=== PATIENT | male | born 1940 | race Caucasian/White ===

== ENCOUNTER → 2017-07-04 09:26 | Outpatient (CLI) | payer MEDICARE, OTHER, SELFPAY ==
[2017-07-04 11:14] LABS: AST(SGOT) 31 U/L (15-37); Alanine Aminotransfer ALT/SGPT 43 U/L (16-61); Albumin, Serum 3.6 g/dL (3.2-5.0); Alkaline Phosphatase 77 U/L (45-117); Bilirubin, Direct 0.09 mg/dL (0.00-0.30); Cholesterol 157 mg/dL (200); Globulin 4.3 g/dL (2.2-4.2); High Density Lipoprotein 39 mg/dL; Protein, Total 7.9 g/dL (6.4-8.2); Thyroid Stim Hormone (TSH) 4.17 uIU/mL (0.358-3.74); Triglycerides 86 mg/dL; Very Low Density Lipoprotein 17 mg/dL (5-40)
== END ==
PROVIDERS: Family Provider Family Medicine Geriatric Medicine; PCP Family Medicine Geriatric Medicine; Visit Provider Physician Assistant Medical
DX: E78.5 Hyperlipidemia, unspecified (principal); E03.9 Hypothyroidism, unspecified; Z79.899 Other long term (current) drug therapy
CPT/HCPCS: 36415; 80061; 80076; 84443

== ENCOUNTER → 2017-09-06 16:31 | Outpatient (CLI) | payer MEDICARE, OTHER, SELFPAY ==
[2017-09-06 17:31] LABS: Absolute Lymphocyte Count 2.79 X10^3/ul (0.83-4.51); Absolute Neutrophil Count 6.3 X10^3/uL (2.0-7.7); Basophil# 0.02 X10^3/uL; Basophil% 0.2 % (0-1); Eosinophil# 0.18 X10^3/uL; Eosinophils% 1.8 % (0-5); Hematocrit 48.6 % (40-54); Hemoglobin 16.1 g/dl (13.0-16.5); Lymphocyte # 2.79 X10^3/ul (4.0); Lymphocyte % 27.2 % (19-41); Mean Corp Hgb Conc 33.1 g/gl (32-36); Mean Corpuscular Hgb 32.1 pg (27.0-32.0); Mean Corpuscular Volume 96.8 fL (80-94); Mean Platelet Vol. 9.6 fl (6.2-12.0); Monocyte# 0.91 X10^3/uL; Monocyte% 8.9 % (0-10); Neutrophil # 6.34 X10^3/uL (2.7-7.7); Neutrophil % 61.8 % (47-70); POSITIVE COUNT NO; POSITIVE DIFFERENTIAL NO; POSITIVE MORPHOLOGY NO; Platelet Count 199 K/mm3 (150-450); RBC Distribution Width CV 13.9 % (11.6-14.6); RBC Distribution Width SD 48.5 fl (35.1-43.9); Red Blood Count 5.02 M/mm3 (4.6-6.2); White Blood Count 10.3 K/mm3 (4.4-11.0)
[2017-09-06 17:57] LABS: Vitamin D,25 Hydroxy 17.3 ng/mL (29.95-100.01)
[2017-09-06 17:58] LABS: ALB/GLOB Ratio 0.8 RATIO (0.9-2.4); AST(SGOT) 39 U/L (15-37); Alanine Aminotransfer ALT/SGPT 61 U/L (16-61); Albumin, Serum 3.7 g/dL (3.2-5.0); Alkaline Phosphatase 78 U/L (45-117); Anion Gap 9 (5-15); BUN 14 mg/dL (7-18); BUN/Creat Ratio 12.2 RATIO (10-20); Calcium,Total 8.7 mg/dL (8.5-10.1); Chloride 105 mmol/L (98-107); Creatinine, Serum 1.15 mg/dL (0.70-1.30); EST Glomerular Filtration Rate 66 mL/min (>60); Est Glom Filt Rate - Afr Amer 79 mL/min (>60); Globulin 4.5 g/dL (2.2-4.2); Glucose 83 mg/dL (74-106); Potassium 4.2 mmol/L (3.5-5.1); Protein, Total 8.2 g/dL (6.4-8.2); Sodium Level 138 mmol/L (136-145); Thyroid Stim Hormone (TSH) 3.91 uIU/mL (0.358-3.74)
== END ==
PROVIDERS: Family Provider Family Medicine Geriatric Medicine; PCP Family Medicine Geriatric Medicine; Visit Provider Family Medicine Geriatric Medicine
DX: E55.9 Vitamin D deficiency, unspecified (principal); R53.83 Other fatigue
CPT/HCPCS: 36415; 80053; 82306; 84443; 85025

== ENCOUNTER → 2018-03-07 12:25 | Outpatient (CLI) | payer MEDICARE, OTHER, SELFPAY ==
[2018-03-07 13:16] LABS: Absolute Neutrophil Count 4.9 X10^3/uL (2.0-7.7); Basophil# 0.02 X10^3/uL; Basophil% 0.2 % (0-1); Eosinophil# 0.11 X10^3/uL; Eosinophils% 1.3 % (0-5); Hematocrit 47.1 % (40-54); Lymphocyte % 33.3 % (19-41); Mean Corp Hgb Conc 31.8 g/gl (32-36); Mean Corpuscular Hgb 31.4 pg (27.0-32.0); Mean Corpuscular Volume 98.7 fL (80-94); Mean Platelet Vol. 9.1 fl (6.2-12.0); Monocyte# 0.73 X10^3/uL; Monocyte% 8.4 % (0-10); Neutrophil # 4.91 X10^3/uL (2.7-7.7); Neutrophil % 56.5 % (47-70); Platelet Count 294 K/mm3 (150-450); RBC Distribution Width CV 13.5 % (11.6-14.6); RBC Distribution Width SD 48.4 fl (35.1-43.9); Red Blood Count 4.77 M/mm3 (4.6-6.2); White Blood Count 8.7 K/mm3 (4.4-11.0)
[2018-03-07 13:21] LABS: POSITIVE COUNT NO; POSITIVE DIFFERENTIAL NO; POSITIVE MORPHOLOGY NO
[2018-03-07 14:00] LABS: Vitamin D,25 Hydroxy 35.2 ng/mL (29.95-100.01)
[2018-03-07 14:05] LABS: ALB/GLOB Ratio 0.8 RATIO (0.9-2.4); AST(SGOT) 39 U/L (15-37); Alanine Aminotransfer ALT/SGPT 61 U/L (16-61); Albumin, Serum 3.5 g/dL (3.2-5.0); Alkaline Phosphatase 73 U/L (45-117); Anion Gap 6 (5-15); BUN 18 mg/dL (7-18); BUN/Creat Ratio 15.4 RATIO (10-20); Calcium,Total 8.9 mg/dL (8.5-10.1); Chloride 108 mmol/L (98-107); Creatinine, Serum 1.17 mg/dL (0.70-1.30); EST Glomerular Filtration Rate 64 mL/min (>60); Est Glom Filt Rate - Afr Amer 78 mL/min (>60); Globulin 4.6 g/dL (2.2-4.2); Glucose 74 mg/dL (74-106); Potassium 4.5 mmol/L (3.5-5.1); Protein, Total 8.1 g/dL (6.4-8.2); Sodium Level 139 mmol/L (136-145); Thyroid Stim Hormone (TSH) 3.02 uIU/mL (0.358-3.74)
== END ==
PROVIDERS: Family Provider Family Medicine Geriatric Medicine; PCP Family Medicine Geriatric Medicine; Visit Provider Family Medicine Geriatric Medicine
DX: E55.9 Vitamin D deficiency, unspecified (principal); R53.83 Other fatigue
CPT/HCPCS: 36415; 80053; 82306; 84443; 85025

== ENCOUNTER → 2018-07-16 09:09 | Outpatient (CLI) | payer MEDICARE, OTHER, SELFPAY ==
[2018-07-16 10:31] LABS: AST(SGOT) 45 U/L (15-37); Alanine Aminotransfer ALT/SGPT 59 U/L (16-61); Albumin, Serum 3.5 g/dL (3.2-5.0); Alkaline Phosphatase 68 U/L (45-117); Bilirubin, Direct 0.06 mg/dL (0.00-0.30); Cholesterol 170 mg/dL (200); Globulin 4.4 g/dL (2.2-4.2); High Density Lipoprotein 38 mg/dL; Protein, Total 7.9 g/dL (6.4-8.2); Triglycerides 108 mg/dL; Very Low Density Lipoprotein 22 mg/dL (5-40)
== END ==
PROVIDERS: Family Provider Family Medicine Geriatric Medicine; PCP Family Medicine Geriatric Medicine; Referring Provider Physician Assistant Medical; Visit Provider Physician Assistant Medical
DX: I25.10 Atherosclerotic heart disease of native coronary artery without angina pectoris (principal); E78.5 Hyperlipidemia, unspecified
CPT/HCPCS: 36415; 80061; 80076

== ENCOUNTER → 2018-08-15 16:34 | Outpatient (CLI) | payer MEDICARE, OTHER, SELFPAY ==
[2018-07-18 14:03] VITALS: BMI 33.6
== END ==
PROVIDERS: Family Provider Family Medicine Geriatric Medicine; PCP Family Medicine Geriatric Medicine; Visit Provider Family Medicine Geriatric Medicine
DX: R19.7 Diarrhea, unspecified (principal); B96.89 Other specified bacterial agents as the cause of diseases classified elsewhere
CPT/HCPCS: 82274; 83630; 87177; 87209; 87493; 87506

== ENCOUNTER → 2018-09-11 09:03 | Outpatient (CLI) | payer MEDICARE, OTHER, SELFPAY ==
[2018-07-18 14:03] VITALS: BMI 33.6
[2018-09-11 12:48] LABS: Absolute Lymphocyte Count 1.86 X10^3/uL (0.83-4.51); Absolute Neutrophil Count 4.8 X10^3/uL (2.0-7.7); Basophil# 0.02 X10^3/uL; Basophil% 0.3 % (0-1); Eosinophil# 0.28 X10^3/uL; Eosinophils% 3.7 % (0-5); Hematocrit 45.6 % (40-54); Hemoglobin 14.8 g/dL (13.0-16.5); Lymphocyte # 1.86 X10^3/ul (4.0); Lymphocyte % 24.4 % (19-41); Mean Corp Hgb Conc 32.5 g/dL (32-36); Mean Corpuscular Hgb 31.8 pg (27.0-32.0); Mean Corpuscular Volume 98.1 fL (80-94); Monocyte# 0.66 X10^3/uL; Monocyte% 8.7 % (0-10); NRBC Flagged by Analyzer 0 % (0-5); Neutrophil # 4.76 X10^3/uL (2.7-7.7); Neutrophil % 62.4 % (47-70); Platelet Count 222 K/mm3 (150-450); RBC Distribution Width CV 13.9 % (11.6-14.6); RBC Distribution Width SD 50.3 fl (35.1-43.9); Red Blood Count 4.65 M/mm3 (4.6-6.2); White Blood Count 7.6 K/mm3 (4.4-11.0)
[2018-09-11 13:23] LABS: ALB/GLOB Ratio 0.8 RATIO (0.9-2.4); AST(SGOT) 30 U/L (15-37); Alanine Aminotransfer ALT/SGPT 50 U/L (16-61); Albumin, Serum 3.4 g/dL (3.2-5.0); Alkaline Phosphatase 76 U/L (45-117); Anion Gap 8 (5-15); BUN 14 mg/dL (7-18); BUN/Creat Ratio 12.3 RATIO (10-20); Calcium,Total 8.9 mg/dL (8.5-10.1); Chloride 106 mmol/L (98-107); Creatinine, Serum 1.14 mg/dL (0.70-1.30); EST Glomerular Filtration Rate 66 mL/min (>60); Est Glom Filt Rate - Afr Amer 80 mL/min (>60); Globulin 4.5 g/dL (2.2-4.2); Glucose 90 mg/dL (74-106); Potassium 4.1 mmol/L (3.5-5.1); Protein, Total 7.9 g/dL (6.4-8.2); Sodium Level 141 mmol/L (136-145); Thyroid Stim Hormone (TSH) 3.03 uIU/mL (0.358-3.74)
== END ==
PROVIDERS: Family Provider Family Medicine Geriatric Medicine; PCP Family Medicine Geriatric Medicine; Visit Provider Family Medicine Geriatric Medicine
DX: I10 Essential (primary) hypertension (principal); E55.9 Vitamin D deficiency, unspecified
CPT/HCPCS: 36415; 80053; 82306; 84443; 85025

== ENCOUNTER → 2019-03-07 12:00 | Outpatient (CLI) | payer MEDICARE, OTHER, SELFPAY ==
[2018-07-18 14:03] VITALS: BMI 33.6
[2019-03-07 12:52] LABS: AST(SGOT) 37 U/L (15-37); Alanine Aminotransfer ALT/SGPT 52 U/L (16-61); Albumin, Serum 3.6 g/dL (3.2-5.0); Alkaline Phosphatase 67 U/L (45-117); Cholesterol 177 mg/dL (200); Globulin 4.3 g/dL (2.2-4.2); High Density Lipoprotein 38 mg/dL; Protein, Total 7.9 g/dL (6.4-8.2); Triglycerides 115 mg/dL; Very Low Density Lipoprotein 23 mg/dL (5-40)
== END ==
PROVIDERS: Family Provider Family Medicine Geriatric Medicine; PCP Family Medicine Geriatric Medicine; Referring Provider Internal Medicine Cardiovascular Disease; Visit Provider Internal Medicine Cardiovascular Disease
DX: I25.10 Atherosclerotic heart disease of native coronary artery without angina pectoris (principal); E78.00 Pure hypercholesterolemia, unspecified
CPT/HCPCS: 36415; 80061; 80076

== ENCOUNTER → 2019-03-12 11:06 | Outpatient (CLI) | payer MEDICARE, OTHER, SELFPAY ==
[2018-07-18 14:03] VITALS: BMI 33.6
[2019-03-12 12:51] LABS: Absolute Lymphocyte Count 2.31 X10^3/uL (0.83-4.51); Absolute Neutrophil Count 4.1 X10^3/uL (2.0-7.7); Basophil# 0.02 X10^3/uL; Basophil% 0.3 % (0-1); Eosinophil# 0.27 X10^3/uL; Eosinophils% 3.7 % (0-5); Hematocrit 47.1 % (40-54); Hemoglobin 14.8 g/dL (13.0-16.5); Lymphocyte # 2.31 X10^3/ul (4.0); Mean Corp Hgb Conc 31.4 g/dL (32-36); Mean Corpuscular Volume 98.5 fL (80-94); Mean Platelet Vol. 9.7 fl (6.2-12.0); Monocyte# 0.56 X10^3/uL; Monocyte% 7.7 % (0-10); NRBC Flagged by Analyzer 0 % (0-5); Neutrophil # 4.05 X10^3/uL (2.7-7.7); Platelet Count 211 K/mm3 (150-450); RBC Distribution Width CV 13.8 % (11.6-14.6); RBC Distribution Width SD 50.2 fl (35.1-43.9); Red Blood Count 4.78 M/mm3 (4.6-6.2); White Blood Count 7.2 K/mm3 (4.4-11.0)
[2019-03-12 13:00] LABS: ALB/GLOB Ratio 0.9 RATIO (0.9-2.4); AST(SGOT) 31 U/L (15-37); Alanine Aminotransfer ALT/SGPT 50 U/L (16-61); Albumin, Serum 3.6 g/dL (3.2-5.0); Alkaline Phosphatase 71 U/L (45-117); Anion Gap 3 (5-15); BUN 17 mg/dL (7-18); Calcium,Total 8.9 mg/dL (8.5-10.1); Chloride 106 mmol/L (98-107); Creatinine, Serum 1.31 mg/dL (0.70-1.30); EST Glomerular Filtration Rate 56 mL/min (>60); Est Glom Filt Rate - Afr Amer 68 mL/min (>60); Globulin 4.2 g/dL (2.2-4.2); Glucose 146 mg/dL (74-106); Potassium 4.3 mmol/L (3.5-5.1); Protein, Total 7.8 g/dL (6.4-8.2); Sodium Level 139 mmol/L (136-145); Thyroid Stim Hormone (TSH) 3.73 uIU/mL (0.358-3.74)
== END ==
PROVIDERS: Family Provider Family Medicine Geriatric Medicine; PCP Family Medicine Geriatric Medicine; Visit Provider Family Medicine Geriatric Medicine
DX: E55.9 Vitamin D deficiency, unspecified (principal); I10 Essential (primary) hypertension
CPT/HCPCS: 36415; 80053; 82306; 84443; 85025

== ENCOUNTER → 2019-08-26 14:45 | Outpatient (CLI) | payer MEDICARE, OTHER, SELFPAY ==
[2019-07-17 14:43] VITALS: BMI 32.5
--- NOTE | 2019-08-26 14:52 | RAD_ITS ---
STUDY: X-RAY - PELVIS AND LEFT HIP REASON FOR EXAM: Male, 78 years old. BACK PAIN, HX OF BACK SURGERY TECHNIQUE: 3 views of the pelvis and hip. COMPARISON: None. FINDINGS: There is a non-specific bowel gas pattern. Normal visualized soft tissue structures. Normal bilateral iliac wings, sacroiliac joints and visualized sacrum. Normal bilateral superior and inferior pubic rami. Normal pubic symphysis. Normal bilateral ischial tuberosities. Unremarkable right hip prosthesis. The left hip joint space is mildly narrowed. No acute fracture is seen. Moderate degenerative changes are partially visualized in the lower lumbar spine. RAD/HIP, UNI W/ Pelvis 2-3 Views IMPRESSION: No acute process of the pelvis/hip Electronically Signed: Joe Denson MD at 17:06 EDT , Service support ,
--- NOTE | 2019-08-26 14:58 | RAD_ITS ---
STUDY: X-RAY - LUMBAR SPINE REASON FOR EXAM: Male, 78 years old. BACK PAIN, HX OF BACK SURGERY TECHNIQUE: 3 view(s) of the lumbar spine were obtained. COMPARISON: 2014 FINDINGS: Normal lumbar lordosis. There is a mild dextroscoliosis of the lumbar spine. There is a normal alignment of the vertebrae in the lateral view. There is diffuse demineralization with multi-level endplate spondylosis. There is multi-level degenerative disc disease with multi-level disc space narrowing. There is no demonstrated fracture. There is atherosclerotic calcification of the abdominal aorta without a demonstrated aneurysm. RAD/Lumbar Spine 2 or 3 Views IMPRESSION: Degenerative changes of the spine, as detailed above. Electronically Signed: Cas Molina MD at 17:36 EDT , Service support ,
== END ==
PROVIDERS: PCP Family Medicine Geriatric Medicine; Referring Provider Family Medicine Geriatric Medicine; Visit Provider Family Medicine Geriatric Medicine
DX: M54.5 Low back pain (principal); M25.552 Pain in left hip
CPT/HCPCS: 72100; 73502

== ENCOUNTER → 2019-09-17 11:13 | Outpatient (CLI) | payer MEDICARE, OTHER, SELFPAY ==
[2019-07-17 14:43] VITALS: BMI 32.5
[2019-09-17 12:42] LABS: Absolute Lymphocyte Count 2.32 X10^3/uL (0.83-4.51); Absolute Neutrophil Count 4.6 X10^3/uL (2.0-7.7); Basophil# 0.02 X10^3/uL; Basophil% 0.3 % (0-1); Eosinophil# 0.13 X10^3/uL; Eosinophils% 1.7 % (0-5); Hematocrit 46.4 % (40-54); Hemoglobin 15.1 g/dL (13.0-16.5); Lymphocyte # 2.32 X10^3/ul (4.0); Lymphocyte % 29.6 % (19-41); Mean Corp Hgb Conc 32.5 g/dL (32-36); Mean Corpuscular Hgb 31.9 pg (27.0-32.0); Mean Corpuscular Volume 97.9 fL (80-94); Mean Platelet Vol. 9.8 fl (6.2-12.0); Monocyte# 0.74 X10^3/uL; Monocyte% 9.4 % (0-10); NRBC Flagged by Analyzer 0 % (0-5); Neutrophil # 4.61 X10^3/uL (2.7-7.7); Neutrophil % 58.7 % (47-70); Platelet Count 230 K/mm3 (150-450); RBC Distribution Width CV 13.9 % (11.6-14.6); RBC Distribution Width SD 50.4 fl (35.1-43.9); Red Blood Count 4.74 M/mm3 (4.6-6.2); White Blood Count 7.8 K/mm3 (4.4-11.0)
[2019-09-17 13:02] LABS: ALB/GLOB Ratio 0.9 RATIO (0.9-2.4); AST(SGOT) 27 U/L (15-37); Alanine Aminotransfer ALT/SGPT 39 U/L (16-61); Albumin, Serum 3.7 g/dL (3.2-5.0); Alkaline Phosphatase 77 U/L (45-117); Anion Gap 3 (5-15); BUN 16 mg/dL (7-18); BUN/Creat Ratio 12.4 RATIO (10-20); Calcium,Total 8.8 mg/dL (8.5-10.1); Chloride 103 mmol/L (98-107); Creatinine, Serum 1.29 mg/dL (0.70-1.30); EST Glomerular Filtration Rate 57 mL/min (>60); Est Glom Filt Rate - Afr Amer 69 mL/min (>60); Globulin 4.2 g/dL (2.2-4.2); Glucose 76 mg/dL (74-106); Protein, Total 7.9 g/dL (6.4-8.2); Sodium Level 137 mmol/L (136-145); Thyroid Stim Hormone (TSH) 3.61 uIU/mL (0.358-3.74)
[2019-09-18 13:42] LABS: Vitamin D,25 Hydroxy 27.4 ng/mL
== END ==
PROVIDERS: PCP Family Medicine Geriatric Medicine; Visit Provider Family Medicine Geriatric Medicine
DX: E55.9 Vitamin D deficiency, unspecified (principal); I10 Essential (primary) hypertension
CPT/HCPCS: 36415; 80053; 82306; 84443; 85025

== ENCOUNTER → 2020-03-10 13:44 | Outpatient (CLI) | payer MEDICARE, OTHER, SELFPAY ==
[2019-10-03 13:46] VITALS: BMI 25.4
--- NOTE | 2020-03-10 14:02 | VDUE_ITS ---
Reason For Study: Edema Left Proximal Left jugular vein is spontaneous, widely patent, phasic, with no intraluminal echogenicity noted. Left subclavian vein is spontaneous, widely patent, phasic, with no intraluminal echogenicity noted. Left Arm Left axillary vein is spontaneous, patent, phasic, competent, compressible and demonstrates augmentation. Left brachial vein is compressible. Left cephalic vein is compressible. Left basilic vein is compressible. Left Lower Arm Left radial vein is compressible. Left ulnar vein is compressible. Patient Safety Prelim to Elias. Interpretation Summary Deep veins of the left upper extremity are patent and compressible segmentally. There is no evidence of deep vein thrombosis. The superficial veins of the left upper extremity, the basilic and cephalic veins, are patent and compressible. There is no evidence of left upper extremity superficial thrombophlebitis involving the veins imaged. Ordering Physician: Geoff Griffin Referring Physician: Geoff Griffin Chi Performed By: Марина Pennington RVT ?
[2020-03-10 14:39] LABS: Erythrocyte Sedimentation Rate 9 mm/hr (0-20)
[2020-03-10 14:41] LABS: Absolute Neutrophil Count 7.6 X10^3/uL (2.0-7.7); Basophil# 0.03 X10^3/uL; Basophil% 0.3 % (0-1); Eosinophil# 0.09 X10^3/uL; Eosinophils% 0.8 % (0-5); Hemoglobin 15.4 g/dL (13.0-16.5); Lymphocyte % 19.1 % (19-41); Mean Corp Hgb Conc 32.8 g/dL (32-36); Mean Corpuscular Volume 97.5 fL (80-94); Mean Platelet Vol. 9.6 fl (6.2-12.0); Monocyte# 1.16 X10^3/uL; Monocyte% 10.6 % (0-10); NRBC Flagged by Analyzer 0 % (0-5); Neutrophil # 7.57 X10^3/uL (2.7-7.7); Neutrophil % 68.8 % (47-70); Platelet Count 260 K/mm3 (150-450); RBC Distribution Width CV 13.3 % (11.6-14.6); RBC Distribution Width SD 47.8 fl (35.1-43.9); Red Blood Count 4.82 M/mm3 (4.6-6.2)
--- NOTE | 2020-03-10 14:43 | RAD_ITS ---
STUDY: X-RAY - LEFT HAND REASON FOR EXAM: Male, 79 years old. Painful and very red and swollen, no injury TECHNIQUE: 3 view(s) of the hand. COMPARISON: None. FINDINGS: Normal radiocarpal articulation. Normal distal radioulnar joint. Calcification of the triangle fibrocartilage. Normal visualized carpal bones. Normal carpal articulations There is degenerative arthrosis of the carpometacarpal (CMC) articulation of the thumb. Normal second through fifth carpometacarpal joints. Normal metacarpi. Normal metacarpophalangeal joint of the thumb. Normal interphalangeal joint of the thumb. Normal proximal and distal phalanges of the thumb. Normal metacarpophalangeal joints of the second through fifth fingers. Normal proximal and distal interphalangeal joints of the second through fifth fingers. Normal phalanges of the second through fifth fingers. Diffuse soft tissue swelling. RAD/Hand Min 3 Views IMPRESSION: Diffuse soft tissue swelling. Electronically Signed: Stefano Toth, at 15:45 EST , Service support ,
--- NOTE | 2020-03-10 14:43 | RAD_ITS ---
STUDY: X-RAY - LEFT WRIST REASON FOR EXAM: Male, 79 years old. Painful, very red and swollen over posterior surface of hand extending into wrist area, no injury TECHNIQUE: 3 view(s) of the wrist were obtained. COMPARISON: None. FINDINGS: Normal visualized distal radius and ulna. There is degenerative arthrosis of the radiocarpal articulation. Normal distal radioulnar articulation. Calcification of the triangular fibrocartilage. Normal carpal bones. Normal carpal articulations. There is degenerative arthrosis of the carpometacarpal articulation of the thumb. Normal second through fifth carpometacarpal articulations. Normal visualized metacarpal bones. Soft tissue swelling. RAD/Wrist min 3 Views IMPRESSION: Degenerative changes. Soft tissue swelling. Electronically Signed: Stefano Toth, at 15:44 EST , Service support ,
[2020-03-10 14:45] LABS: Anion Gap 4 (5-15); BUN 19 mg/dL (7-18); BUN/Creat Ratio 14.8 RATIO (10-20); Calcium,Total 9.1 mg/dL (8.5-10.1); Chloride 107 mmol/L (98-107); Creatinine, Serum 1.28 mg/dL (0.70-1.30); EST Glomerular Filtration Rate 58 mL/min (>60); Est Glom Filt Rate - Afr Amer 70 mL/min (>60); Glucose 99 mg/dL (74-106); Potassium 4.5 mmol/L (3.5-5.1); Sodium Level 140 mmol/L (136-145)
== END ==
PROVIDERS: PCP Family Medicine Geriatric Medicine; Visit Provider Family Medicine Geriatric Medicine
DX: R79.9 Abnormal finding of blood chemistry, unspecified (principal); R60.0 Localized edema; M79.642 Pain in left hand
CPT/HCPCS: 36415; 73110; 73130; 80048; 84550; 85025; 85652; 86140; 93971

== ENCOUNTER → 2020-03-17 11:01 | Outpatient (CLI) | payer MEDICARE, OTHER, SELFPAY ==
[2019-10-03 13:46] VITALS: BMI 25.4
[2020-03-17 12:47] LABS: Absolute Lymphocyte Count 2.75 X10^3/uL (0.83-4.51); Absolute Neutrophil Count 8.9 X10^3/uL (2.0-7.7); Basophil# 0.09 X10^3/uL; Basophil% 0.7 % (0-1); Eosinophil# 0.04 X10^3/uL; Eosinophils% 0.3 % (0-5); Hematocrit 48.4 % (40-54); Hemoglobin 16.3 g/dL (13.0-16.5); Lymphocyte # 2.75 X10^3/ul (4.0); Lymphocyte % 21.1 % (19-41); Mean Corp Hgb Conc 33.7 g/dL (32-36); Mean Corpuscular Volume 94.9 fL (80-94); Mean Platelet Vol. 9.8 fl (6.2-12.0); Monocyte# 0.87 X10^3/uL; Monocyte% 6.7 % (0-10); NRBC Flagged by Analyzer 0 % (0-5); Neutrophil # 8.91 X10^3/uL (2.7-7.7); Neutrophil % 68.4 % (47-70); Platelet Count 342 K/mm3 (150-450); RBC Distribution Width CV 13.2 % (11.6-14.6); RBC Distribution Width SD 46.3 fl (35.1-43.9)
[2020-03-17 13:08] LABS: Vitamin D,25 Hydroxy 19.9 ng/mL
[2020-03-17 13:25] LABS: ALB/GLOB Ratio 0.8 RATIO (0.9-2.4); AST(SGOT) 37 U/L (15-37); Alanine Aminotransfer ALT/SGPT 88 U/L (16-61); Albumin, Serum 3.3 g/dL (3.2-5.0); Alkaline Phosphatase 75 U/L (45-117); Anion Gap 7 (5-15); BUN 23 mg/dL (7-18); BUN/Creat Ratio 17.2 RATIO (10-20); Calcium,Total 8.9 mg/dL (8.5-10.1); Chloride 100 mmol/L (98-107); Creatinine, Serum 1.34 mg/dL (0.70-1.30); EST Glomerular Filtration Rate 55 mL/min (>60); Est Glom Filt Rate - Afr Amer 66 mL/min (>60); Globulin 4.4 g/dL (2.2-4.2); Glucose 102 mg/dL (74-106); Potassium 4.4 mmol/L (3.5-5.1); Protein, Total 7.7 g/dL (6.4-8.2); Sodium Level 136 mmol/L (136-145); Thyroid Stim Hormone (TSH) 3.06 uIU/mL (0.358-3.74); Uric Acid 5.4 mg/dL (3.5-7.2)
== END ==
PROVIDERS: PCP Family Medicine Geriatric Medicine; Visit Provider Family Medicine Geriatric Medicine
DX: I10 Essential (primary) hypertension (principal); M10.9 Gout, unspecified; E55.9 Vitamin D deficiency, unspecified
CPT/HCPCS: 36415; 80053; 82306; 84443; 84550; 85025

== ENCOUNTER → 2020-09-22 09:45 | Outpatient (CLI) | payer MEDICARE, OTHER, SELFPAY ==
[2020-09-11 13:22] VITALS: BMI 33.5
[2020-09-22 12:35] LABS: Absolute Lymphocyte Count 2.06 X10^3/uL (0.83-4.51); Absolute Neutrophil Count 3.6 X10^3/uL (2.0-7.7); Basophil# 0.02 X10^3/uL; Basophil% 0.3 % (0-1); Eosinophil# 0.13 X10^3/uL; Hematocrit 47.4 % (40-54); Hemoglobin 15.4 g/dL (13.0-16.5); Lymphocyte # 2.06 X10^3/ul (0.83-4.51); Lymphocyte % 32.4 % (19-41); Mean Corp Hgb Conc 32.5 g/dL (32-36); Mean Corpuscular Hgb 31.1 pg (27.0-32.0); Mean Corpuscular Volume 95.8 fL (80-94); Monocyte# 0.49 X10^3/uL; Monocyte% 7.7 % (0-10); NRBC Flagged by Analyzer 0 % (0-5); Neutrophil # 3.63 X10^3/uL (2.7-7.7); Neutrophil % 57.3 % (47-70); Platelet Count 231 K/mm3 (150-450); RBC Distribution Width CV 13.3 % (11.6-14.6); RBC Distribution Width SD 47.4 fl (35.1-43.9); Red Blood Count 4.95 M/mm3 (4.6-6.2); White Blood Count 6.4 K/mm3 (4.4-11.0)
[2020-09-22 12:52] LABS: Vitamin D,25 Hydroxy 22.7 ng/mL
[2020-09-22 13:23] LABS: ALB/GLOB Ratio 0.8 RATIO (0.9-2.4); AST(SGOT) 37 U/L (15-37); Alanine Aminotransfer ALT/SGPT 48 U/L (16-61); Albumin, Serum 3.4 g/dL (3.2-5.0); Alkaline Phosphatase 76 U/L (45-117); Anion Gap 8 (5-15); BUN 17 mg/dL (7-18); BUN/Creat Ratio 12.7 RATIO (10-20); Calcium,Total 8.8 mg/dL (8.5-10.1); Chloride 108 mmol/L (98-107); Creatinine, Serum 1.34 mg/dL (0.70-1.30); EST Glomerular Filtration Rate 55 mL/min (>60); Est Glom Filt Rate - Afr Amer 66 mL/min (>60); Globulin 4.1 g/dL (2.2-4.2); Glucose 128 mg/dL (74-106); Potassium 3.8 mmol/L (3.5-5.1); Protein, Total 7.5 g/dL (6.4-8.2); Sodium Level 141 mmol/L (136-145); Thyroid Stim Hormone (TSH) 3.93 uIU/mL (0.358-3.74); Uric Acid 7.6 mg/dL (3.5-7.2)
== END ==
PROVIDERS: PCP Family Medicine Geriatric Medicine; Visit Provider Family Medicine Geriatric Medicine
DX: E59 Dietary selenium deficiency (principal); E55.9 Vitamin D deficiency, unspecified; I10 Essential (primary) hypertension; M10.9 Gout, unspecified
CPT/HCPCS: 36415; 80053; 82306; 84443; 84550; 85025

== ENCOUNTER 2021-03-23 10:09 | Outpatient (CLI) | payer MEDICARE, OTHER, SELFPAY ==
[2021-03-23 11:07] LABS: Absolute Lymphocyte Count 1.52 X10^3/uL (0.83-4.51); Absolute Neutrophil Count 2.2 X10^3/uL (2.0-7.7); Basophil# 0.01 X10^3/uL; Basophil% 0.2 % (0-1); Eosinophil# 0.39 X10^3/uL; Eosinophils% 7.9 % (0-5); Hematocrit 46.6 % (40-54); Hemoglobin 15.4 g/dL (13.0-16.5); Lymphocyte # 1.52 X10^3/ul (0.83-4.51); Lymphocyte % 30.9 % (19-41); Mean Corpuscular Hgb 31.5 pg (27.0-32.0); Mean Corpuscular Volume 95.3 fL (80-94); Mean Platelet Vol. 9.5 fl (6.2-12.0); Monocyte# 0.76 X10^3/uL; Monocyte% 15.4 % (0-10); NRBC Flagged by Analyzer 0 % (0-5); Neutrophil # 2.23 X10^3/uL (2.7-7.7); Neutrophil % 45.4 % (47-70); Platelet Count 182 K/mm3 (150-450); RBC Distribution Width CV 13.7 % (11.6-14.6); RBC Distribution Width SD 48.3 fl (35.1-43.9); Red Blood Count 4.89 M/mm3 (4.6-6.2); White Blood Count 4.9 K/mm3 (4.4-11.0)
[2021-03-23 11:40] LABS: Vitamin D,25 Hydroxy 29.3 ng/mL
[2021-03-23 11:47] LABS: ALB/GLOB Ratio 0.8 RATIO (0.9-2.4); AST(SGOT) 51 U/L (15-37); Alanine Aminotransfer ALT/SGPT 47 U/L (16-61); Albumin, Serum 3.5 g/dL (3.2-5.0); Alkaline Phosphatase 75 U/L (45-117); Anion Gap 6 (5-15); BUN 18 mg/dL (7-18); BUN/Creat Ratio 12.3 RATIO (10-20); Calcium,Total 8.8 mg/dL (8.5-10.1); Chloride 105 mmol/L (98-107); Creatinine, Serum 1.46 mg/dL (0.70-1.30); EST Glomerular Filtration Rate 49 mL/min (>60); Est Glom Filt Rate - Afr Amer 60 mL/min (>60); Globulin 4.5 g/dL (2.2-4.2); Glucose 97 mg/dL (74-106); Potassium 4.4 mmol/L (3.5-5.1); Sodium Level 139 mmol/L (136-145); Thyroid Stim Hormone (TSH) 5.33 uIU/mL (0.358-3.74); Uric Acid 6.7 mg/dL (3.5-7.2)
== END 2021-03-23 23:59 | disposition short-term general hospital (02) ==
LOC: POLAB3 10:11
PROVIDERS: PCP Family Medicine Geriatric Medicine; Visit Provider Family Medicine Geriatric Medicine
DX: E55.9 Vitamin D deficiency, unspecified (principal); M10.9 Gout, unspecified; R53.83 Other fatigue
CPT/HCPCS: 36415; 80053; 82306; 84443; 84550; 85025

== ENCOUNTER 2021-05-27 11:49 | Outpatient (CLI) | payer MEDICARE, OTHER, SELFPAY ==
--- NOTE | 2021-05-27 11:53 | US_ITS ---
STUDY: RENAL ULTRASOUND - COMPLETE REASON FOR EXAM: Male, 80 years old. CKD stage III. TECHNIQUE: Ultrasound evaluation of the kidneys was performed with real-time and static zuñiga-scale imaging. COMPARISON: None. FINDINGS: RIGHT KIDNEY: Normal location of the right kidney, which is normal in size. The right kidney measures 10.2 cm x 5.4 cm x 5.5 cm. There is a normal cortex of the right kidney. The renal cortex measures 1.4 cm. There is no right renal mass or cyst. 3 mm x 3 mm nonobstructive intrarenal calculus is seen. There is also evidence of a 2 mm nonobstructive intrarenal calculus. There is no right hydronephrosis. DISTAL RIGHT URETER: There is non-visualization of the distal right ureter. There is no demonstrated right ureterovesical junction calculus. There is a visualized right ureteral jet. LEFT KIDNEY: Normal location of the left kidney, which is normal in size. The left kidney measures 10.3 cm x 4.7 cm x 4.7 cm. There is a normal cortex of the left kidney. The renal cortex measures 1.3 cm. There is no left renal mass or cyst. 4 mm x 4 mm nonobstructive intrarenal calculus. There is no left hydronephrosis. DISTAL LEFT URETER: There is non-visualization of the distal left ureter. There is no demonstrated left ureterovesical junction calculus. There is a visualized left ureteral jet. BLADDER: The distended urinary bladder has a volume of 89 ml. The empty urinary bladder has a volume of ml. There is a normal wall thickness of the distended urinary bladder. There is no demonstrated mass within the urinary bladder. There are no demonstrated bladder calculi. US/Kidney and Bladder IMPRESSION: Findings suggestive of nonobstructive bilateral intrarenal calculi. Electronically Signed: Stefano Toth MD at 13:23 EDT ,
== END 2021-05-27 23:59 | disposition home or self-care (01) ==
LOC: US 11:50
PROVIDERS: PCP Family Medicine Geriatric Medicine; Referring Provider Internal Medicine Nephrology; Visit Provider Internal Medicine Nephrology
DX: N18.32 Chronic kidney disease, stage 3b (principal)
CPT/HCPCS: 76770

== ENCOUNTER → 2021-07-05 | Outpatient (CLI) | payer MEDICARE, OTHER, SELFPAY ==
[2021-07-05 10:22] LABS: Albumin, Serum 3.5 g/dL (3.2-5.0); BUN 16 mg/dL (7-18); BUN/Creat Ratio 12.1 RATIO (10-20); Calcium,Total 8.8 mg/dL (8.5-10.1); Chloride 103 mmol/L (98-107); Creatinine, Serum 1.32 mg/dL (0.70-1.30); EST Glomerular Filtration Rate 55 mL/min (>60); Est Glom Filt Rate - Afr Amer 67 mL/min (>60); Glucose 95 mg/dL (74-106); PTHIN 70.6 pg/mL (18.4-80.1); Potassium 4.2 mmol/L (3.5-5.1); Sodium Level 138 mmol/L (136-145)
== END | disposition home or self-care (01) ==
LOC: LAB 09:08
PROVIDERS: PCP Family Medicine Geriatric Medicine; Visit Provider Internal Medicine Nephrology
DX: N18.32 Chronic kidney disease, stage 3b (principal)
CPT/HCPCS: 36415; 80069; 83970

== ENCOUNTER → 2021-10-14 | Outpatient (CLI) | payer MEDICARE, OTHER, SELFPAY ==
[2021-10-14 12:38] LABS: Absolute Lymphocyte Count 2.18 X10^3/uL (0.83-4.51); Absolute Neutrophil Count 4.3 X10^3/uL (2.0-7.7); Basophil# 0.03 X10^3/uL; Basophil% 0.4 % (0-1); Eosinophil# 0.18 X10^3/uL; Eosinophils% 2.5 % (0-5); Hematocrit 45.4 % (40-54); Lymphocyte # 2.18 X10^3/ul (0.83-4.51); Lymphocyte % 29.9 % (19-41); Mean Corpuscular Hgb 31.9 pg (27.0-32.0); Mean Corpuscular Volume 96.6 fL (80-94); Monocyte# 0.62 X10^3/uL; Monocyte% 8.5 % (0-10); NRBC Flagged by Analyzer 0 % (0-5); Neutrophil # 4.26 X10^3/uL (2.7-7.7); Neutrophil % 58.4 % (47-70); Platelet Count 217 K/mm3 (150-450); RBC Distribution Width CV 13.8 % (11.6-14.6); RBC Distribution Width SD 49.5 fl (35.1-43.9); White Blood Count 7.3 K/mm3 (4.4-11.0)
[2021-10-14 12:47] LABS: Vitamin D,25 Hydroxy 26.6 ng/mL
[2021-10-14 13:09] LABS: ALB/GLOB Ratio 0.8 RATIO (0.9-2.4); AST(SGOT) 24 U/L (15-37); Alanine Aminotransfer ALT/SGPT 32 U/L (16-61); Albumin, Serum 3.3 g/dL (3.2-5.0); Alkaline Phosphatase 80 U/L (45-117); Anion Gap 4 (5-15); BUN 21 mg/dL (7-18); BUN/Creat Ratio 14.9 RATIO (10-20); Calcium,Total 9.1 mg/dL (8.5-10.1); Chloride 106 mmol/L (98-107); Creatinine, Serum 1.41 mg/dL (0.70-1.30); EST Glomerular Filtration Rate 51 mL/min (>60); Est Glom Filt Rate - Afr Amer 62 mL/min (>60); Globulin 4.3 g/dL (2.2-4.2); Glucose 120 mg/dL (74-106); Potassium 4.4 mmol/L (3.5-5.1); Protein, Total 7.6 g/dL (6.4-8.2); Sodium Level 139 mmol/L (136-145); Thyroid Stim Hormone (TSH) 4.02 uIU/mL (0.358-3.74); Uric Acid 6.6 mg/dL (3.5-7.2)
== END | disposition home or self-care (01) ==
LOC: POLAB3 10:23
PROVIDERS: PCP Family Medicine Geriatric Medicine; Visit Provider Family Medicine Geriatric Medicine
DX: E55.9 Vitamin D deficiency, unspecified (principal); I10 Essential (primary) hypertension; M10.9 Gout, unspecified
CPT/HCPCS: 36415; 80053; 82306; 84443; 84550; 85025

== ENCOUNTER → 2021-10-15 | Outpatient (CLI) | payer MEDICARE, OTHER, SELFPAY ==
--- NOTE | 2021-10-15 08:46 | STRESSREP ---
Stress Test Report Date: 10-15-2021 Procedure: Pharmacologic stress nuclear imaging study Indications: CAD; CABG; abnormal ECG-right bundle branch block Consent: Per the patient Procedure: The patient underwent pharmacologic (Regadenoson 0.4mg ) evaluation with a peak heart rate of 93 beats per minute (66%predicted maximal heart rate) and a peak blood pressure of 122/70 mmHg. The baseline ECG demonstrated sinus rhythm; right bundle branch block. The peak pharmacologic ECG demonstrated with continued right bundle branch block with no obvious ECG changes. There were no cardiac dysrhythmias pretest, during pharmacologic infusion, or recovery. There was no complaint of chest discomfort during pharmacologic infusion or recovery. The examination was discontinued secondary to completion of protocol. Impression: 1. Pharmacologic (Regadenoson) evaluation 2. Peak pharmacologic ECG with continued right bundle branch block with no obvious ECG changes. 3. There were no cardiac dysrhythmias pretest, during pharmacologic infusion, or recovery. 4. Nuclear images pending Myocardial perfusion imaging study: Technique: The patient was injected with 11.0 millicuries of technetium 99m Cardiolite and subsequently rest SPECT Cardiolite nuclear imaging was obtained in the horizontal long, vertical long, and short axis views. The patient underwent pharmacologic (Regadenoson) evaluation with a peak heart rate of 93 beats per minute (66% percent predicted maximal heart rate) and a peak blood pressure of 122/70 mmHg. The patient was injected with 34.9 millicuries of technetium 99m Cardiolite and subsequently stress SPECT Cardiolite nuclear imaging was obtained in the horizontal long, vertical long, and short axis views. A gated Cardiolite study at peak stress was obtained. Interpretation: Rest and stress SPECT Cardiolite nuclear imaging status post realignment, normalization, and attenuation correction demonstrate relative uniform tracer uptake and myocardial perfusion appearing within normal limits. There is end systolic thickening and brightening. The gated Cardiolite study demonstrates myocardial thickening and inward wall motion. The reported LVEF is 84%. Impression: 1. Rest and stress SPECT Cardiolite nuclear imaging demonstrate relative uniform tracer uptake and myocardial perfusion appearing within normal limits. 2. The gated Cardiolite study reports an LVEF of 84%. This note was generated with restOpolisation software. It may contain incorrect words, spelling, and punctuation that were not noted in checking the note before signing.
== END | disposition home or self-care (01) ==
LOC: CVS 07:16
PROVIDERS: PCP Family Medicine Geriatric Medicine; Referring Provider Physician Assistant Medical; Visit Provider Physician Assistant Medical
DX: I25.10 Atherosclerotic heart disease of native coronary artery without angina pectoris (principal); R94.31 Abnormal electrocardiogram [ECG] [EKG]
CPT/HCPCS: 78452; 93017; A9500; A4216; J2785

== ENCOUNTER → 2022-01-05 | Outpatient (CLI) | payer MEDICARE, OTHER, SELFPAY ==
[2022-01-05 13:18] LABS: Albumin, Serum 3.3 g/dL (3.2-5.0); BUN 20 mg/dL (7-18); BUN/Creat Ratio 14.6 RATIO (10-20); Chloride 106 mmol/L (98-107); Creatinine, Serum 1.37 mg/dL (0.70-1.30); EST Glomerular Filtration Rate 53 mL/min (>60); Est Glom Filt Rate - Afr Amer 64 mL/min (>60); Glucose 84 mg/dL (74-106); Phosphorus 3.1 mg/dL (2.5-4.9); Potassium 4.1 mmol/L (3.5-5.1); Sodium Level 139 mmol/L (136-145)
== END | disposition home or self-care (01) ==
LOC: LAB 12:28
PROVIDERS: PCP Family Medicine Geriatric Medicine
DX: N18.32 Chronic kidney disease, stage 3b (principal)
CPT/HCPCS: 36415; 80069

== ENCOUNTER → 2022-04-14 | Outpatient (CLI) | payer MEDICARE, OTHER, SELFPAY ==
[2022-04-14 12:33] LABS: Absolute Lymphocyte Count 1.96 X10^3/uL (0.83-4.51); Absolute Neutrophil Count 3.5 X10^3/uL (2.0-7.7); Basophil# 0.02 X10^3/uL; Basophil% 0.3 % (0-1); Eosinophil# 0.38 X10^3/uL; Eosinophils% 6.1 % (0-5); Hematocrit 45.8 % (40-54); Lymphocyte # 1.96 X10^3/ul (0.83-4.51); Lymphocyte % 31.3 % (19-41); Mean Corp Hgb Conc 32.8 g/dL (32-36); Mean Corpuscular Hgb 31.9 pg (27.0-32.0); Mean Corpuscular Volume 97.4 fL (80-94); Mean Platelet Vol. 9.8 fl (6.2-12.0); Monocyte# 0.42 X10^3/uL; Monocyte% 6.7 % (0-10); NRBC Flagged by Analyzer 0 % (0-5); Neutrophil # 3.47 X10^3/uL (2.7-7.7); Neutrophil % 55.4 % (47-70); Platelet Count 223 K/mm3 (150-450); RBC Distribution Width CV 13.5 % (11.6-14.6); RBC Distribution Width SD 48.9 fl (35.1-43.9); White Blood Count 6.3 K/mm3 (4.4-11.0)
[2022-04-14 12:59] LABS: Vitamin D,25 Hydroxy 23.2 ng/mL
[2022-04-14 13:24] LABS: ALB/GLOB Ratio 0.8 RATIO (0.9-2.4); AST(SGOT) 30 U/L (15-37); Alanine Aminotransfer ALT/SGPT 36 U/L (16-61); Albumin, Serum 3.5 g/dL (3.2-5.0); Alkaline Phosphatase 79 U/L (45-117); Anion Gap 8 (5-15); BUN 22 mg/dL (7-18); BUN/Creat Ratio 15.4 RATIO (10-20); Chloride 108 mmol/L (98-107); Creatinine, Serum 1.43 mg/dL (0.70-1.30); EST Glomerular Filtration Rate 50 mL/min (>60); Est Glom Filt Rate - Afr Amer 61 mL/min (>60); Globulin 4.3 g/dL (2.2-4.2); Glucose 142 mg/dL (74-106); Potassium 4.1 mmol/L (3.5-5.1); Protein, Total 7.8 g/dL (6.4-8.2); Sodium Level 141 mmol/L (136-145); Thyroid Stim Hormone (TSH) 4.39 uIU/mL (0.358-3.74)
== END | disposition home or self-care (01) ==
LOC: POLAB3 10:49
PROVIDERS: PCP Family Medicine Geriatric Medicine; Visit Provider Family Medicine Geriatric Medicine
DX: I10 Essential (primary) hypertension (principal); E55.9 Vitamin D deficiency, unspecified
CPT/HCPCS: 36415; 80053; 82306; 84443; 85025

== ENCOUNTER → 2022-07-12 | Outpatient (CLI) | payer MEDICARE, OTHER, SELFPAY ==
--- NOTE | 2022-07-12 15:35 | VDLE_ITS ---
Reason For Study: Swelling of right foot RIGHT LEFT GSV is normal. CFV is compressible, spontaneous, phasic, CFV is compressible, spontaneous, phasic, competent, and demonstrates normal competent and demonstrates normal augmentation. augmentation. FV is compressible, spontaneous, phasic, competent and demonstrates normal augmentation. POP V is compressible, spontaneous, phasic, competent and demonstrates normal augmentation. T/P Trunk is compressible. PTV is compressible. RT PerV is compressible. Procedure This is a venous duplex using B-mode, color flow and spectral Doppler. Exam performed in department. A preliminary report was called and/or faxed to Dr. Griffin. VL/Venous Duplex US, Unilateral Interpretation Summary Deep veins of the right lower extremity are patent and compressible segmentally . There is no evidence of right lower extremity deep vein thrombosis. Valvular competence rell ears intact within the proximal deep venous system on the right . The right great saphenous vein a ppears patent and compressible segmentally. The left common femoral vein is patent and compressib le . Ordering Physician: Geoff Griffin Chi Referring Physician: Geoff Griffin Chi Performed By: Марина Pennington RVT
--- NOTE | 2022-07-12 15:55 | RAD_ITS ---
STUDY: X-RAY - RIGHT ANKLE REASON FOR EXAM: Male, 81 years old. Pain and edema. TECHNIQUE: 3 view(s) of the ankle. COMPARISON: None. FINDINGS: Normal visualized distal tibia and fibula. Normal medial and lateral malleoli. Normal tibiotalar articulation and ankle mortise. Normal visualized talus. Small plantar spur along the underside of an otherwise normal calcaneus The visualized subtalar, talonavicular, calcaneocuboid and tarsal articulations are normal. Diffuse soft tissue prominence about the ankle and hindfoot. This is most marked laterally. RAD/Ankle min 3 Views IMPRESSION: Soft tissue swelling without visualized fracture or dislocation. Electronically Signed: Ole Felix DO at 16:43 EDT ,
--- NOTE | 2022-07-12 15:55 | RAD_ITS ---
STUDY: X-RAY - RIGHT FOOT CLINICAL: Male, 81 years old. Pain. TECHNIQUE: 3 view(s) of the foot. COMPARISON: Right ankle, [birth year] 13[birth year] 1999 right FINDINGS: There is a plantar calcaneal spur. Normal talus and tarsal bones. Normal visualized subtalar, talonavicular, calcaneocuboid, tarsal and tarsometatarsal articulations. Normal metatarsi. Normal metatarsophalangeal joint of the great toe. Normal tibial and fibular sesamoid bones. Normal interphalangeal joint of the great toe. Normal phalanges of the great toe. Normal second through fifth metatarsophalangeal joints. Normal interphalangeal joints and phalanges of the lesser toes. Soft tissue swelling about the ankle and hindfoot RAD/Foot min 3 Views IMPRESSION: Soft tissue swelling about the ankle and hindfoot. There is no visualized fracture or dislocation. Electronically Signed: Ole Felix DO at 16:46 EDT ,
== END | disposition home or self-care (01) ==
PROVIDERS: PCP Family Medicine Geriatric Medicine; Referring Provider Family Medicine Geriatric Medicine; Visit Provider Family Medicine Geriatric Medicine
DX: M79.89 Other specified soft tissue disorders (principal); M79.671 Pain in right foot
CPT/HCPCS: 73610; 73630; 93971

== ENCOUNTER → 2022-07-19 | Outpatient (CLI) | payer MEDICARE, OTHER, SELFPAY ==
[2022-07-19 13:23] LABS: Absolute Lymphocyte Count 2.14 X10^3/uL (0.83-4.51); Absolute Neutrophil Count 7.1 X10^3/uL (2.0-7.7); Basophil# 0.03 X10^3/uL; Basophil% 0.3 % (0-1); Eosinophil# 0.02 X10^3/uL; Eosinophils% 0.2 % (0-5); Hematocrit 46.5 % (40-54); Hemoglobin 15.4 g/dL (13.0-16.5); Lymphocyte # 2.14 X10^3/ul (0.83-4.51); Lymphocyte % 21.3 % (19-41); Mean Corp Hgb Conc 33.1 g/dL (32-36); Mean Corpuscular Volume 96.5 fL (80-94); Mean Platelet Vol. 10.1 fl (6.2-12.0); NRBC Flagged by Analyzer 0 % (0-5); Neutrophil # 7.05 X10^3/uL (2.7-7.7); Neutrophil % 70.3 % (47-70); Platelet Count 258 K/mm3 (150-450); RBC Distribution Width CV 14.1 % (11.6-14.6); RBC Distribution Width SD 49.6 fl (35.1-43.9); Red Blood Count 4.82 M/mm3 (4.6-6.2)
[2022-07-19 13:41] LABS: Anion Gap 8 (5-15); BUN 27 mg/dL (7-18); BUN/Creat Ratio 20.1 RATIO (10-20); Calcium,Total 8.8 mg/dL (8.5-10.1); Chloride 107 mmol/L (98-107); Creatinine, Serum 1.34 mg/dL (0.70-1.30); EST Glomerular Filtration Rate 54 mL/min (>60); Est Glom Filt Rate - Afr Amer 66 mL/min (>60); Glucose 115 mg/dL (74-106); Potassium 4.3 mmol/L (3.5-5.1); Sodium Level 136 mmol/L (136-145); Uric Acid 5.9 mg/dL (3.5-7.2)
== END | disposition home or self-care (01) ==
LOC: POLAB3 11:10
PROVIDERS: PCP Family Medicine Geriatric Medicine; Visit Provider Family Medicine Geriatric Medicine
DX: E79.0 Hyperuricemia without signs of inflammatory arthritis and tophaceous disease (principal); N18.32 Chronic kidney disease, stage 3b
CPT/HCPCS: 36415; 80048; 84550; 85025

== ENCOUNTER → 2022-10-17 | Outpatient (CLI) | payer MEDICARE, OTHER, SELFPAY ==
[2022-10-17 12:03] LABS: Absolute Lymphocyte Count 2.01 X10^3/uL (0.83-4.51); Basophil# 0.03 X10^3/uL; Basophil% 0.4 % (0-1); Eosinophils% 1.3 % (0-5); Hematocrit 48.8 % (40-54); Hemoglobin 15.5 g/dL (13.0-16.5); Lymphocyte # 2.01 X10^3/ul (0.83-4.51); Lymphocyte % 26.2 % (19-41); Mean Corp Hgb Conc 31.8 g/dL (32-36); Mean Corpuscular Hgb 31.6 pg (27.0-32.0); Mean Corpuscular Volume 99.6 fL (80-94); Monocyte# 0.51 X10^3/uL; Monocyte% 6.7 % (0-10); NRBC Flagged by Analyzer 0 % (0-5); Neutrophil # 4.99 X10^3/uL (2.7-7.7); Neutrophil % 65.1 % (47-70); Platelet Count 247 K/mm3 (150-450); White Blood Count 7.7 K/mm3 (4.4-11.0)
[2022-10-17 12:20] LABS: Vitamin D,25 Hydroxy 25.4 ng/mL
[2022-10-17 12:25] LABS: ALB/GLOB Ratio 0.8 RATIO (0.9-2.4); AST(SGOT) 26 U/L (15-37); Alanine Aminotransfer ALT/SGPT 35 U/L (16-61); Albumin, Serum 3.6 g/dL (3.2-5.0); Alkaline Phosphatase 84 U/L (45-117); Anion Gap 3 (5-15); BUN 23 mg/dL (7-18); BUN/Creat Ratio 15.9 RATIO (10-20); Calcium,Total 9.5 mg/dL (8.5-10.1); Chloride 108 mmol/L (98-107); Creatinine, Serum 1.45 mg/dL (0.70-1.30); EST Glomerular Filtration Rate 50 mL/min (>60); Est Glom Filt Rate - Afr Amer 60 mL/min (>60); Globulin 4.4 g/dL (2.2-4.2); Glucose 126 mg/dL (74-106); Potassium 4.3 mmol/L (3.5-5.1); Sodium Level 140 mmol/L (136-145); Thyroid Stim Hormone (TSH) 2.94 uIU/mL (0.358-3.74)
== END | disposition home or self-care (01) ==
PROVIDERS: PCP Family Medicine Geriatric Medicine; Visit Provider Family Medicine Geriatric Medicine
DX: I10 Essential (primary) hypertension (principal); E55.9 Vitamin D deficiency, unspecified
CPT/HCPCS: 36415; 80053; 82306; 84443; 85025

== ENCOUNTER 2022-10-23 19:50 | Inpatient (IN) | payer MEDICARE, OTHER, SELFPAY ==
[2022-10-23 19:53] VITALS: BP 145/75; PULSE 109; RESP 33; TEMP 38.8; O2SAT 92; BMI 33.3
[2022-10-23 20:02] VITALS: BP 145/75; PULSE 107; RESP 27; TEMP 38.8; O2SAT 92
--- NOTE | 2022-10-23 20:10 | CT_ITS ---
STUDY: CT BRAIN WITHOUT CONTRAST REASON FOR EXAM: Male, 82 years old. facial droop Individualized dose optimization techniques were used for this CT. TECHNIQUE: Transaxial CT imaging of the brain was performed without administration of intravenous contrast material. COMPARISON: None FINDINGS: There are calcifications around the carotid artery. These are noted in the cavernous carotid arteries. Normal calvarium. Normal soft tissues. There is mild cerebral atrophy with widening of the extra-axial spaces and ventricular dilatation. There are areas of decreased attenuation within the white matter tracts of the supratentorial brain, consistent with microvascular disease changes. Normal basal ganglia and thalami. Normal brainstem. There is mild cerebellar atrophy. There is no intracranial hemorrhage. There are no findings of an acute ischemic infarction. Degenerative changes of the mandibular condyles. ASPECTS Score for Acute Strokes: 12/06 CT/Brain/Head without Contrast IMPRESSION: There are no acute findings. Chronic involutional changes of the brain. Electronically Signed: Anthony Flores MD at 21:08 EDT ,
--- NOTE | 2022-10-23 20:13 | ED.VIS.FALL ---
HPI HPI - Fall History of Present Illness Chief Complaint: Fall Narrative Narrative: 82-year-old male past medical history of hypertension, CABG, presents with generalized weakness and slid out of bed today. Was reported by EMS, that he was weak and slid out of bed. He had a left-sided facial droop that his kids were concerned about, but according to the RN states that he gets intermittent left-sided facial droop which is chronic. He denies any headache. No chest pain, but states he has had occasional cough. On arrival to the ED, he has elevated temperature of 101.9, satting 92% on room air. He states he is not sure why he is in the emergency department because he states he feels fine otherwise. He denies any dysuria or hematuria, no other symptoms. [facility] Medical History (Updated 10/23/22 @ 21:52 by Grant Soliman MD) Atherosclerosis of coronary artery bypass graft without angina pectoris Atherosclerotic heart disease of [place] coronary artery without angina pectoris Essential hypertension History of left heart catheterization (LHC) (~02/13/12) Hyperlipidemia Hypertension Pure hypercholesterolemia Home Medications alprazolam 0.5 mg tablet,extended release 24 hr 0.5 mg PO 4X/DAY PRN PRN Anxiety 03/11/15 [History Last Taken Unknown] aspirin 81 mg tablet,delayed release 81 mg PO QHS 03/11/15 [History Last Taken Unknown] omega-3 fatty acids 1,000 mg capsule (Fish Oil Concentrate) 1,000 mg PO QDAY 07/10/17 [History Last Taken Unknown] niacin 500 mg tablet,extended release 24 hr 500 mg PO .3XWEEK 07/17/19 [History Last Taken Unknown] loratadine 10 mg tablet 10 mg PO DAILY 09/23/21 [History Last Taken Unknown] nitroglycerin 0.4 mg sublingual tablet (Nitrostat) 0.4 mg sublingual Q5-15M PRN chest pain #25 tabs 09/23/21 [Rx Last Taken Unknown] ketorolac 0.5 % eye drops drp 10/23/22 [History Last Taken Unknown] meloxicam 15 mg tablet mg 10/23/22 [History Last Taken Unknown] meloxicam 7.5 mg tablet 7.5 mg PO DAILY 10/23/22 [History Last Taken Unknown] prednisolone acetate 1 % eye drops,suspension drp 10/23/22 [History Last Taken Unknown] Allergy/AdvReac Type Severity Reaction Status Date / Time erythromycin base Allergy Rash Verified 04/26/22 10:38 Penicillins [PCN] Allergy Rash Verified 04/26/22 10:38 oxycodone HCl [From Percocet] AdvReac Other Verified 04/26/22 10:38 Family History Father CVA (cerebral vascular accident) Surgical History H/O coronary artery bypass surgery History of appendectomy History of back surgery History of coronary artery bypass surgery (~04/12/02) History of hernia repair History of shoulder surgery Social History Smoking Status: Former smoker alcohol intake: never substance use type: does not use caffeine: Yes Type: carbonated beverages eating out: other ROS ROS ED ROS Narrative Constitutional: No fever, no chills. Generalized weakness HEENT: No sore throat. No neck pain. No loss of vision. No rhinorrhea. Chronic left-sided facial droop. Cardiovascular: No chest pain. No palpitations. No pedal edema. Respiratory: No cough, no shortness of breath. Abdominal: No abdominal pain. No nausea. No vomiting. Genitourinary: No dysuria. No hematuria. Musculoskeletal: No myalgias. No arthralgias. Neurologic: No headaches. No dizziness. No lightheadedness. Skin: No rash. No change in color. Psychiatric: No depression. No anxiety. EXAM Physical Exam Narrative Exam Narrative: Temperature 101.9 ?F vital signs noted. HEENT: Normocephalic. Atraumatic. PERRL, EOMI. Neck soft and supple. No point tenderness or step off. Cardiovascular: Positive tachycardia. No murmurs, rubs, or gallops appreciated. Respiratory: No tachypnea. Lungs clear to auscultation bilaterally. Gastrointestinal: Abdomen soft, nontender, with normoactive bowel sounds. No rebound or guarding. Neurological: Awake. Alert. Nonfocal, nonlateralizing except subtle left-sided facial droop, no forehead involvement. Skin: No rash. Normal color. No pallor. Musculoskeletal: No pedal edema. Full range of motion extremities. Const Vital Signs: 10/23/22 19:53 10/23/22 20:02 10/23/22 20:03 Temperature 101.9 F H 101.9 F H Temperature Source Oral Oral Pulse Rate 109 H 107 H Respiratory Rate 33 H 27 H Respiratory Effort Normal Respiratory Pattern Tachypnea Blood Pressure 145/75 H 145/75 H Blood Pressure Mean 98 98 Pulse Ox 92 92 Oxygen Delivery Method Room Air Room Air Room Air 10/23/22 20:39 Temperature Temperature Source Pulse Rate Respiratory Rate Respiratory Effort Respiratory Pattern Blood Pressure Blood Pressure Mean Pulse Ox Oxygen Delivery Method Room Air MDM MDM MDM Narrative Medical decision making narrative: Urine is more for sepsis work-up given his elevated temperature and tachycardia, he is already meeting SIRS criteria. Regarding his facial droop, his states it is intermittent, but more of a chronic thing. I will obtain a CT of the brain to help rule out stroke. Sepsis work-up was pursued. He was administered Tylenol orally. I will look for pneumonia as a source along with respiratory swabs for COVID and influenza. Urinalysis will be obtained as well. EKG was obtained and interpreted by myself independently as sinus tachycardia at 107 bpm with an incomplete right bundle branch block but no acute ST changes. No STEMI. I reviewed his laboratory work and he has a normal white count of 10.5, hemoglobin normal at 16.0, hematocrit 48.5, platelet count normal at 218. PT and INR are normal at 13.7 and 1.1. Review of his CMP shows normal sodium of 137, potassium normal at 4.1, chloride normal at 105, BUN of 17 with creatinine slightly elevated at 1.35. This is a chronic kidney injury. His creatinine is at his baseline. High-sensitivity troponin normal at 7. Respiratory swabs are negative for COVID and influenza a and B. Urinalysis is negative for infection. CT of the brain was obtained and the radiology report was reviewed, there is no acute process. Chest x-ray in 1 view was interpreted by myself independently and I see no evidence of pneumonia or pneumothorax. His lactic acid is elevated at 2.6. Temperature after Tylenol was reported to come down to 99 degrees Fahrenheit. I am unsure as to the source of his fever, but he will be started on cefepime secondary to a penicillin allergy of a rash and vancomycin. Blood cultures are currently pending. As he meets SIRS criteria and has unknown source of sepsis, I do feel he requires at least observation. Patient was discussed with Dr. Ortiz. Disposition is admit to the PCU. Patient is in stable condition. History & Record Review Discussion w/independent historian: Patient and Family Additional record(s) reviewed:: Prior outpatient record and Prior labs Lab Data Attestation: I reviewed the patient's lab results. Labs: Laboratory Results - last 24 hr 10/23/22 10/23/22 20:12 20:56 WBC 10.5 RBC 4.98 Hgb 16.0 Hct 48.5 MCV 97.4 H MCH 32.1 H MCHC 33.0 RDW Std Deviation 50.2 H RDW Coeff of [place] 14.0 Plt Count 218 MPV 9.5 Immature Gran % (Auto) 0.300 Neut % (Auto) 75.3 H Lymph % (Auto) 12.2 L [place] % (Auto) 11.7 H Eos % (Auto) 0.3 Baso % (Auto) 0.2 Absolute Neuts (auto) 7.9 H Absolute Lymphs (auto) 1.28 Nucleated RBC % 0 PT 13.7 INR 1.1 APTT 32.4 Sodium 137 Potassium 4.1 Chloride 105 Carbon Dioxide 26.0 Anion Gap 6 BUN 17 Creatinine 1.35 H Estim Creat Clear Calc 35.33 Est GFR (MDRD) Af Amer 65 Est GFR (MDRD) Non-Af 54 L BUN/Creatinine Ratio 12.6 Glucose 127 H Lactic Acid 2.6 H* Calcium 8.8 Total Bilirubin 0.40 AST 24 ALT 29 Alkaline Phosphatase 88 Troponin I High Sens 7 Total Protein 7.8 Albumin 3.4 Globulin 4.4 H Albumin/Globulin Ratio 0.8 L Urine Color Yellow Urine Clarity Clear Urine pH 6.0 Ur Specific [place] 1.015 Urine Protein 15 H Urine Glucose (UA) Normal Urine Ketones Negative Urine Occult Blood Negative Urine Nitrite Negative Urine Bilirubin Negative Urine Urobilinogen Normal Ur Leukocyte Esterase Negative Urine RBC 0 SEEN Urine WBC 0 SEEN Ur Squamous Epith Cells 0 SEEN Urine Bacteria 0 SEEN Urine Mucus 0 SEEN Radiography Diagnostic Testing: Clinical Impression(s) from Imaging Studies Brain CT 10/23/22 20:10 IMPRESSION: There are no acute findings. Chronic involutional changes of the brain. Electronically Signed: Anthony Flores MD at 21:08 EDT , Chest X-Ray 10/23/22 20:45 IMPRESSION: There are no acute findings. Electronically Signed: Anthony Flores MD at 21:09 EDT , Management Discussion w/another healthcare provider: Hospitalist (Dr. Ramona Ortiz) Discharge Plan Triage Chief Complaint: Fall ED Provider: Grant Soliman Dx/Rx/DC Orders Clinical Impression: Fever, Generalized weakness, SIRS (systemic inflammatory response syndrome), Fall from bed, initial encounter, Acidosis, lactic Prescriptions: No Action omega-3 fatty acids [Fish Oil Concentrate] 1,000 mg capsule 1,000 mg PO QDAY loratadine 10 mg tablet 10 mg PO DAILY nitroglycerin [Nitrostat] 0.4 mg tablet, sublingual 0.4 mg SUBLINGUAL Q5-15M PRN (Reason: chest pain) Qty: 25 6RF Rx Instructions: until response; do not exceed 3 doses per episode aspirin 81 MG tablet 81 mg PO QHS Patient Comments: WAS TOLD TO STOP 5 DAYS PRIOR TO SURGERY alprazolam 0.5 MG tablet extended release 24 hr 0.5 mg PO 4X/DAY PRN PRN (Reason: Anxiety) niacin 500 mg tablet extended release 24 hr 500 mg PO .3XWEEK meloxicam 7.5 mg tablet 7.5 mg PO DAILY meloxicam 15 mg tablet ketorolac 0.5 % drops prednisolone acetate 1 % drops,suspension Primary Care Provider: Geoff Griffin Chi Referrals: Geoff Griffin Chi, MD [Primary Care Provider] - Disposition Disposition: Home, Self Care
--- NOTE | 2022-10-23 20:14 | EKG12_ITS ---
Test Reason : CP Blood Pressure : / mmHG Vent. 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
[2022-10-23] MEDS: 0.9% Normal Saline 1,000 ML 999 ML IV ×2 (20:21→22:07)
[2022-10-23] MEDS: Acetaminophen 325 MG Tablet 650 MG PO (20:25)
[2022-10-23 20:26] LABS: Absolute Lymphocyte Count 1.28 X10^3/uL (0.83-4.51); Absolute Neutrophil Count 7.9 X10^3/uL (2.0-7.7); Basophil# 0.02 X10^3/uL; Basophil% 0.2 % (0-1); Eosinophil# 0.03 X10^3/uL; Eosinophils% 0.3 % (0-5); Hematocrit 48.5 % (40-54); Lymphocyte # 1.28 X10^3/ul (0.83-4.51); Lymphocyte % 12.2 % (19-41); Mean Corpuscular Hgb 32.1 pg (27.0-32.0); Mean Corpuscular Volume 97.4 fL (80-94); Mean Platelet Vol. 9.5 fl (6.2-12.0); Monocyte# 1.22 X10^3/uL; Monocyte% 11.7 % (0-10); NRBC Flagged by Analyzer 0 % (0-5); Neutrophil # 7.87 X10^3/uL (2.7-7.7); Neutrophil % 75.3 % (47-70); Platelet Count 218 K/mm3 (150-450); RBC Distribution Width SD 50.2 fl (35.1-43.9); Red Blood Count 4.98 M/mm3 (4.6-6.2); White Blood Count 10.5 K/mm3 (4.4-11.0)
[2022-10-23 20:35] LABS: International Normalized Ratio 1.1; Partial Thromboplast Time 32.4 Seconds (24.1-36.2); Prothrombin Time (Protime)PT. 13.7 SECONDS (11.7-14.9)
--- NOTE | 2022-10-23 20:45 | RAD_ITS ---
STUDY: XR Chest 1 View 10/23/2022 8:38 PM REASON FOR EXAM: Male, 82 years old. Fever COMPARISON: None TECHNIQUE: XR Chest 1 View FINDINGS: There is no demonstrated pleural abnormality. There are multiple median sternotomy wires. Right humeral anchors. Elevated bilateral humeral head with eburnation of the acromion suggest a chronic rotator cuff tear. Normal heart size. Normal mediastinum. Normal melchor. Prominent appearing increased interstitial lung markings. Normal visualized pulmonary arteries. There is atherosclerotic calcification of the aortic arch with tortuosity. There are diffuse degenerative changes of the visualized thoracic spine. There is degenerative osteoarthritis of the bilateral shoulders. There are no acute findings of the upper abdomen. RAD/Chest 1 View (Portable) IMPRESSION: There are no acute findings. Electronically Signed: Anthony Flores MD at 21:09 EDT ,
[2022-10-23 20:47] LABS: ALB/GLOB Ratio 0.8 RATIO (0.9-2.4); AST(SGOT) 24 U/L (15-37); Alanine Aminotransfer ALT/SGPT 29 U/L (16-61); Albumin, Serum 3.4 g/dL (3.2-5.0); Alkaline Phosphatase 88 U/L (45-117); Anion Gap 6 (5-15); BUN 17 mg/dL (7-18); BUN/Creat Ratio 12.6 RATIO (10-20); Calcium,Total 8.8 mg/dL (8.5-10.1); Chloride 105 mmol/L (98-107); Creatinine, Serum 1.35 mg/dL (0.70-1.30); EST Glomerular Filtration Rate 54 mL/min (>60); Est Glom Filt Rate - Afr Amer 65 mL/min (>60); Estimated Creatinine Clearance 35.33 ml/min; Globulin 4.4 g/dL (2.2-4.2); Glucose 127 mg/dL (74-106); Potassium 4.1 mmol/L (3.5-5.1); Protein, Total 7.8 g/dL (6.4-8.2); Sodium Level 137 mmol/L (136-145); Troponin-I HS 7 pg/mL (3.0-78.0)
[2022-10-23 21:07] LABS: Bacteria 0 SEEN /hpf (None Seen); Mucous, Urine 0 SEEN /hpf (<or=2+); Red Blood Cells-Urine 0 SEEN /hpf (0-5); Squamous Epithelial Cells - UA 0 SEEN /hpf (0-5); White Blood Cells 0 SEEN /hpf (0-5)
[2022-10-23 21:11] LABS: Lactic Acid 2.6 mmol/L (0.4-1.9)
[2022-10-23 21:22] LABS: Glucose, Dipstick Normal (Normal); Ketone-Dipstick Negative (Negative); Leukocyte Esterase-Dipstick Negative /ul (Negative); Nitrite-Dipstick Negative (Negative); Occult Blood-Urine Negative /ul (Negative); Protein-Dipstick 15 mg/dl (Negative); Specific Gravity, Urine 1.015 (1.002-1.030); Urine Bilirubin Dipstick Negative (Negative); Urine Urobilinogen Normal (Normal)
[2022-10-23 21:41] LABS: Color, Urine Yellow (Yellow); Urine Clarity Clear (Clear)
[2022-10-23 22:00] VITALS: BP 136/86; PULSE 76; RESP 24; TEMP 37.2; O2SAT 96
[2022-10-23 22:01] VITALS: BP 136/86; PULSE 73; RESP 24; TEMP 37.2; O2SAT 94
[2022-10-23 22:43] VITALS: BMI 32.8
--- NOTE | 2022-10-23 22:44 | PCM.HP.STD ---
HPI - General General Date of Admission: 10/23/22 Date of Service: 10/23/22 Chief Complaint: Generalized weakness/fall HPI Narrative HA SHAFFER, is a 82 M who presented to the emergency department at [facility] on 10/23/2022 after sustaining a fall at home. The patient was getting out of bed and just slid to the floor. He had no injuries but was significantly weak. His children were concerned that he had some left facial droop however his states this is normal for him at baseline when he is more fatigued. He denied any headache, chest pain or significant shortness of breath. He does complain of cough which is acute on chronic. He denies any fevers at home, chills, myalgias, arthralgias, nausea, vomiting, diarrhea, constipation, sinus drainage, headache, pharyngitis, or nasal drainage. Vital signs on presentation showed temperature 101.9, heart rate was 109, respiratory was 33 and oxygen saturations were 92% on room air, blood pressure was 145/75. His CBC was unremarkable. He did have a left shift however his white count was normal. Neutrophilia was 75.3% he also had a monocytosis at 11.7%. Coags were normal. His chemistry panel was overall unremarkable. He has an elevated serum creatinine which appears consistent with his baseline. Currently 1.35 and baseline appears to be between 1.3 and 1.5. His glucose was 127. Liver functions were normal. Lactic acid was 2.6. His urine was unremarkable. Chest x-ray had no acute findings. EKG showed sinus tachycardia with no ST-T wave changes concerning for acute ischemia. He was treated with IV fluid x2 L in the emergency department and I added on the third liter as he does meet sepsis criteria. He was also given vancomycin and cefepime. Cefepime was utilized due to penicillin allergy. [facility] Medical History Atherosclerosis of coronary artery bypass graft without angina pectoris Atherosclerotic heart disease of [place] coronary artery without angina pectoris Essential hypertension History of left heart catheterization (LHC) (~02/13/12) Hyperlipidemia Hypertension Pure hypercholesterolemia Home Medications alprazolam 0.5 mg tablet,extended release 24 hr 0.5 mg PO 4X/DAY PRN PRN Anxiety 03/11/15 [History Last Taken Unknown] aspirin 81 mg tablet,delayed release 81 mg PO QHS 03/11/15 [History Last Taken Unknown] omega-3 fatty acids 1,000 mg capsule (Fish Oil Concentrate) 1,000 mg PO QDAY 07/10/17 [History Last Taken Unknown] niacin 500 mg tablet,extended release 24 hr 500 mg PO .3XWEEK 07/17/19 [History Last Taken Unknown] loratadine 10 mg tablet 10 mg PO DAILY 09/23/21 [History Last Taken Unknown] nitroglycerin 0.4 mg sublingual tablet (Nitrostat) 0.4 mg sublingual Q5-15M PRN chest pain #25 tabs 09/23/21 [Rx Last Taken Unknown] ketorolac 0.5 % eye drops drp 10/23/22 [History Last Taken Unknown] meloxicam 15 mg tablet mg 10/23/22 [History Last Taken Unknown] meloxicam 7.5 mg tablet 7.5 mg PO DAILY 10/23/22 [History Last Taken Unknown] prednisolone acetate 1 % eye drops,suspension drp 10/23/22 [History Last Taken Unknown] Allergy/AdvReac Type Severity Reaction Status Date / Time erythromycin base Allergy Rash Verified 04/26/22 10:38 Penicillins [PCN] Allergy Rash Verified 04/26/22 10:38 oxycodone HCl [From Percocet] AdvReac Other Verified 04/26/22 10:38 Family History Father CVA (cerebral vascular accident) Surgical History H/O coronary artery bypass surgery History of appendectomy History of back surgery History of coronary artery bypass surgery (~04/12/02) History of hernia repair History of shoulder surgery Social History Smoking Status: Former smoker alcohol intake: never substance use type: does not use caffeine: Yes Type: carbonated beverages eating out: other ROS Constitutional Constitutional: Reports weakness; Denies anorexia, change in weight, chills, fatigue, fever(s), malaise, night sweats or other Eyes Eyes: Denies blurry vision, change in eye color, change in vision, discharge from eye(s), double vision, erythema, eye pain, loss of vision or other ENT HEENT: Denies abnormal hearing, dysphagia, ear pain, epistaxis, headache(s), hearing loss, nasal congestion, nasal discharge, post nasal drip, sinus pressure, sore throat or other Cardiovascular Cardiovascular: Denies chest pain, claudication, dyspnea on exertion, edema, lightheadedness, orthopnea, palpitations, paroxysmal nocturnal dyspnea, rapid heart rate, syncope or other Respiratory/Chest Respiratory/Chest: Reports cough and shortness of breath with exertion; Denies dyspnea, excessive phlegm production, hemoptysis, productive cough, shortness of breath at rest, wheezing or other Gastrointestinal Gastrointestinal: Denies abdominal pain, coffee ground emesis, constipation, diarrhea, dyspepsia, hematemesis, hematochezia, loose stools, melena, nausea, vomiting or other Genitourinary Genitourinary: Denies burning urination, difficulty urinating, dysuria, hematuria, nocturia, urinary frequency, urinary hesitancy, urinary incontinence, urinary urgency or other Musculoskeletal Musculoskeletal: Denies arthralgias, back pain, joint pain, joint stiffness, joint swelling, myalgias, neck pain or other Neurologic Neurologic: Denies abnormal gait, abnormal speech, confusion, disequilibrium, dizziness, focal weakness, headache(s), numbness, paresthesias, seizure-like activity, seizures, syncope, tingling, tremor(s) or other Psychiatric Psychiatric: Denies anxiety, depression, homicidal ideation, suicidal ideation or other Endocrine Endocrinology: Denies change in body appearance, cold intolerance, excessive sweating, heat intolerance, polydipsia, polyuria or other Hematologic/Lymphatic Hematologic/Lymphatic: Denies anemia, easy bleeding, easy bruising, lymphadenopathy or other Allergic/Immunologic Allergic/Immunologic: Denies rhinitis, hives, eczemia, asthma or other Vital Signs Vital Signs Vital Signs: 10/23/22 19:53 10/23/22 20:02 10/23/22 20:03 Temperature 101.9 F H 101.9 F H Temperature Source Oral Oral Pulse Rate 109 H 107 H Respiratory Rate 33 H 27 H Respiratory Effort Normal Respiratory Pattern Tachypnea Blood Pressure 145/75 H 145/75 H Blood Pressure Mean 98 98 Pulse Ox 92 92 Oxygen Delivery Method Room Air Room Air Room Air 10/23/22 20:39 Temperature Temperature Source Pulse Rate Respiratory Rate Respiratory Effort Respiratory Pattern Blood Pressure Blood Pressure Mean Pulse Ox Oxygen Delivery Method Room Air Weight Weight: 88.2 kg Body Mass Index (BMI) 33.3 Physical Exam Const alert, oriented x3, no apparent distress, healthy appearing and well nourished Constitutional Narrative: Elderly white male, sitting up in bed, appears comfortable and nontoxic, coughs intermittently throughout my conversation with him but does not appear toxic, and son at bedside General Appearance: cooperative HEENT normocephalic, head/scalp atraumatic and moist oral mucous membranes; Negative for hearing grossly normal bilaterally HEENT Narrative: Mild to moderate hearing loss Mallampati 3, no thrush Eyes PERRL, EOMs intact bilaterally and conjunctivae normal Eyes Narrative: No scleral icterus Neck no lymphadenopathy, supple, no JVD and no carotid bruits Neck Narrative: Trachea midline, no thyroid enlarged Resp no retractions, no use of accessory muscles and clear to auscultation bilaterally Resp Narrative: Mild tachypnea, intermittent cough that is nonproductive and nonrhonchorous sounds dry Auscultation: Negative for rales, rhonchi or wheezes Cardio regular rhythm, S1 normal heart sound, S2 normal heart sound, no murmurs, no rub, no gallops and no clicks Cardio Narrative: Mild tachycardia GI normal to inspection, nondistended, normoactive bowel sounds, soft to palpation, non-tender and non-distended Extremity no clubbing, cyanosis or edema Extremity Narrative: Pedal pulses are 2+, cap refill is good Skin no rashes or lesions noted, no wounds, skin turgor normal, no jaundice, no petechiae and no mottling Neuro oriented x3, CN's II-XII intact bilaterally, moves all extremities and no focal motor deficits Neuro Narrative: Significant generalized weakness noted but no focal dip Speech: speech normal Psych affect normal Psych Narrative: Very pleasant, jovial throughout our conversation, intermittent joking, appropriate Results Lab / Micro Data 10/23/22 20:12 10/23/22 20:12 Labs: Laboratory Results - last 24 hr 10/23/22 20:12: WBC 10.5, RBC 4.98, Hgb 16.0, Hct 48.5, MCV 97.4 H, MCH 32.1 H, MCHC 33.0, RDW Std Deviation 50.2 H, RDW Coeff of [place] 14.0, Plt Count 218, MPV 9.5, Immature Gran % (Auto) 0.300, Neut % (Auto) 75.3 H, Lymph % (Auto) 12.2 L, [place] % (Auto) 11.7 H, Eos % (Auto) 0.3, Baso % (Auto) 0.2, Absolute Neuts (auto) 7.9 H, Absolute Lymphs (auto) 1.28, Nucleated RBC % 0, PT 13.7, INR 1.1, APTT 32.4, Sodium 137, Potassium 4.1, Chloride 105, Carbon Dioxide 26.0, Anion Gap 6, BUN 17, Creatinine 1.35 H, Estim Creat Clear Calc 35.33, Est GFR (MDRD) Af Amer 65, Est GFR (MDRD) Non-Af 54 L, BUN/Creatinine Ratio 12.6, Glucose 127 H, Lactic Acid 2.6 H*, Calcium 8.8, Total Bilirubin 0.40, AST 24, ALT 29, Alkaline Phosphatase 88, Troponin I High Sens 7, Total Protein 7.8, Albumin 3.4, Globulin 4.4 H, Albumin/Globulin Ratio 0.8 L 10/23/22 20:56: Urine Color Yellow, Urine Clarity Clear, Urine pH 6.0, Ur Specific [place] 1.015, Urine Protein 15 H, Urine Glucose (UA) Normal, Urine Ketones Negative, Urine Occult Blood Negative, Urine Nitrite Negative, Urine Bilirubin Negative, Urine Urobilinogen Normal, Ur Leukocyte Esterase Negative, Urine RBC 0 SEEN, Urine WBC 0 SEEN, Ur Squamous Epith Cells 0 SEEN, Urine Bacteria 0 SEEN, Urine Mucus 0 SEEN Micro: Microbiology 10/23/22 20:56 Nasal Secretion SARS-CoV-2 & FLU Antigen (Rapid) - Final Radiology Impression Brain CT 10/23/22 20:10 IMPRESSION: There are no acute findings. Chronic involutional changes of the brain. Electronically Signed: Anthony Flores MD at 21:08 EDT Reading Location ID and State: [facility] / [place] , Service support , Chest X-Ray 10/23/22 20:45 IMPRESSION: There are no acute findings. Electronically Signed: Anthony Flores MD at 21:09 EDT , Assessment & Plan Assessment/Plan (1) Acidosis, lactic: (2) Fall from bed, initial encounter: (3) Sepsis: (4) Fever: (5) Tachypnea: (6) Cough: (7) Tachycardia: PLAN: Plan Sepsis -Patient meets sepsis guidelines per Medicare criteria with fever, tachypnea, tachycardia and suspected source, lactic acid was also elevated at 2.6 -Chest x-ray is unremarkable however patient appears slightly dry -UA was unremarkable -Blood, urine, sputum cultures -Rapid COVID is negative -We will check COVID PCR -Check strep pneumo and Legionella antigens -Check respiratory viral panel -Continue antibiotics with cefepime and vancomycin -Check MRSA PCR -Check procalcitonin -Patient has received 2 L in the emergency department we will give 1 more liter bolus to meet 30 cc requirement for fluid resuscitation Lactic acid -Suspect related to the above -Cycle according to protocol -Fluid boluses infusing Cough -Patient with acute on chronic cough -Work-up in progress -See above CAD/HTN/HPL -Previous four-vessel CABG in 2002 -Per Cath 02/13/12: 90% stenosis in prox LAD and 90% ostial stenosis of prox RI, nonfunctioning/occluded ESTRADA graft to LAD, however, LAD suppled by backflow of grafted diagonal, patent SVG to RI graft and patent SVG to Diagonal -Continue home aspirin -Continue home niacin 7 -Patient with diagnosis of blood pressure however is not requiring any insight hypertensives at baseline -Patient is not on any lipid-lowering drug other than niacin per his primary care physician Anxiety -Continue home alprazolam Seasonal allergies -Continue home loratadine Obesity -BMI is 33.4 -Recommend weight loss -Complicates treatment, prognosis, outcomes DVT prophylaxis -Lovenox daily subcu 40 mg CODE STATUS -DNR CCA with no intubation per discussion on admission the emergency department--> son and were present for this conversation Sepsis Attestation Sepsis Alert: Yes Sepsis Attestation: Agree w/Sepsis Date exam was performed: 10/23/22 Time exam was performed: 22:51 Possible Source of Sepsis: Pulmonary Sepsis Organ Dysfunction Criteria Present: Lactic Acid > 2 mmol/L Supportive Findings: Patient with general Medicare and age criteria for sepsis with temperature greater than 100.9, tachycardia, tachypnea, and suspected source. There is also signs of endorgan damage with lactic acid being greater than 2 Fluid Resuscitation Fluid resuscitation indicated?: Yes Fluid Resuscitation ordered: 30 ml/kg fluid bolus ordered Amount of fluid ordered: 3,000 (Patient was given 2 L in the emergency department and I ordered another liter for the floor) Charges/Coding Visit Charges Inpatient E&M: 64815 Init Hosp L3
[2022-10-23 23:27] LABS: Procalcitonin 0.07 ng/mL (0.00-0.09)
[2022-10-24] VITALS (8 sets, daily range): BP systolic 121–160; BP diastolic 67–91; PULSE 79–111; RESP 18–20; TEMP 36.6–38.8; O2SAT 94–96
[2022-10-24 00:21] LABS: Reflex Lactate? Y
[2022-10-24 02:08] LABS: Lactic Acid 1.8 mmol/L (0.4-1.9)
[2022-10-24] MEDS: 0.9% Normal Saline 1,000 ML 999 ML IV (02:21)
[2022-10-24 02:36] LABS: M R Staph aureus DNA By PCR Negative (Negative); Probe Check PASS; Specimen Processing Control PASS
[2022-10-24] MEDS: guaiFENesin 10 ML UDC (200MG/10ML) 20 ML PO ×2 (02:47→12:57)
--- NOTE | 2022-10-24 02:58 | PCM.RX.CS ---
Consult Antibiotic Management Pharmacy has been consulted to manage selected antiobiotic: Vancomycin Type of Intervention Type of Consult: New start Labs Labs: Sodium 137 mmol/L (136-145) 10/23/22 20:12 Potassium 4.1 mmol/L (3.5-5.1) 10/23/22 20:12 Chloride 105 mmol/L (98-107) 10/23/22 20:12 Carbon Dioxide 26.0 mmol/L (21.0-32.0) 10/23/22 20:12 Anion Gap 6 (5-15) 10/23/22 20:12 BUN 17 mg/dL (7-18) 10/23/22 20:12 Creatinine 1.35 mg/dL (0.70-1.30) H 10/23/22 20:12 Est GFR (MDRD) Af Amer 65 mL/min (>60) 10/23/22 20:12 Est GFR (MDRD) Non-Af 54 mL/min (>60) L 10/23/22 20:12 BUN/Creatinine Ratio 12.6 RATIO (10-20) 10/23/22 20:12 Glucose 127 mg/dL (74-106) H 10/23/22 20:12 Microbiology Microbiology: Microbiology 10/23/22 20:56 Urine, Clean Catch Legionella Antigen - Final 10/23/22 20:56 Urine, Clean Catch Streptococcus pneumoniae Antigen (M - Final 10/23/22 20:56 Nasal Secretion SARS-CoV-2 & FLU Antigen (Rapid) - Final Goal Trough Goal Trough: 15-20 mcg/mL Pharmacy Plan for Drug Dosing Pharmacy Plan for Drug Dosing: Pharmacy Service will continue to monitor and adjust dosing as required. Follow-Up Labs Follow-Up Labs: Trough: Vancomycin Date/Time Labs Ordered Labs to be done on [date and time ordered]: 10/25 @ 1031
[2022-10-24 06:41] LABS: Absolute Lymphocyte Count 1.57 X10^3/uL (0.83-4.51); Basophil# 0.02 X10^3/uL; Basophil% 0.2 % (0-1); Eosinophil# 0.07 X10^3/uL; Eosinophils% 0.7 % (0-5); Hematocrit 43.8 % (40-54); Hemoglobin 14.2 g/dL (13.0-16.5); Lymphocyte # 1.57 X10^3/ul (0.83-4.51); Lymphocyte % 15.9 % (19-41); Mean Corp Hgb Conc 32.4 g/dL (32-36); Mean Corpuscular Hgb 32.1 pg (27.0-32.0); Mean Corpuscular Volume 99.1 fL (80-94); Monocyte# 1.15 X10^3/uL; Monocyte% 11.6 % (0-10); NRBC Flagged by Analyzer 0 % (0-5); Neutrophil # 7.04 X10^3/uL (2.7-7.7); Neutrophil % 71.2 % (47-70); Platelet Count 184 K/mm3 (150-450); RBC Distribution Width SD 51.5 fl (35.1-43.9); Red Blood Count 4.42 M/mm3 (4.6-6.2); White Blood Count 9.9 K/mm3 (4.4-11.0)
[2022-10-24] MEDS: Acetaminophen 325 MG Tablet 650 MG PO ×2 (06:42→16:24)
[2022-10-24 07:06] LABS: Anion Gap 5 (5-15); BUN 14 mg/dL (7-18); BUN/Creat Ratio 12.7 RATIO (10-20); Chloride 111 mmol/L (98-107); EST Glomerular Filtration Rate 68 mL/min (>60); Est Glom Filt Rate - Afr Amer 82 mL/min (>60); Estimated Creatinine Clearance 43.35 ml/min; Glucose 98 mg/dL (74-106); Magnesium 2.1 mg/dL (1.6-2.6); Phosphorus 2.1 mg/dL (2.5-4.9); Sodium Level 140 mmol/L (136-145)
--- NOTE | 2022-10-24 08:40 | CASEMGMT ---
Social Work SW performed chart review, LW and HCPOA documents on file as of 2016. Patient's identified HCPOA is patient's , Elise and alternate is Aparna Swanson. No special instructions listed on either document. Fara WEINSTEIN, DANTE
[2022-10-24] MEDS: Enoxaparin 40 MG/0.4 ML Syringe SC (09:30)
[2022-10-24] MEDS: Loratadine 10 MG Tablet PO (09:34)
[2022-10-24] MEDS: Niacin SA 500 MG Tablet PO (12:57)
--- NOTE | 2022-10-24 15:26 | DCINST_ITS ---
Discharge Instructions Diet Discharge Diet: No restrictions Activity Discharge Activity: Return to Normal Activity May resume sexual activity in: - (Quarantine for a total of 10 days after your symptoms started) Weight Bearing Status: Full weight bearing Follow Up Care Test Results: Test results from this visit will be discussed in further detail at your follow- up appointment, if applicable. Discharge Plan Admission Admit Date/Time: 10/23/22 22:40 Primary Reason for Your Visit: COVID-19 Attending Provider: Esteban Parks Primary Care Provider: Geoff Griffin Chi Consulting Providers: Madisyn Ortiz Discharge Orders/Prescriptions Prescriptions: New Paxlovid 300 mg (150 mg x 2)-100 mg tablets,dose pack See Rx Instructions .ROUTE .COMPLEX Qty: 30 0RF Rx Instructions: take TWO 150 mg tablets of nirmatrelvir with ONE 100 mg tablet of ritonavir twice daily for 5 days Continued omega-3 fatty acids [Fish Oil Concentrate] 1,000 mg capsule 1,000 mg PO QDAY loratadine 10 mg tablet 10 mg PO DAILY nitroglycerin [Nitrostat] 0.4 mg tablet, sublingual 0.4 mg SUBLINGUAL Q5-15M PRN (Reason: chest pain) Qty: 25 6RF Rx Instructions: until response; do not exceed 3 doses per episode niacin 500 mg tablet extended release 24 hr 500 mg PO .3XWEEK meloxicam 7.5 mg tablet 7.5 mg PO DAILY meloxicam 15 mg tablet Referrals / Follow Up: Geoff Griffin Chi, MD [Primary Care Provider] - Disposition Disposition (needs filled in before D/C Order can be placed): Home, Self Care
--- NOTE | 2022-10-24 15:30 | PCM.DC.SUM ---
Providers Date of Admission: 10/23/22 Date of Discharge: 10/24/22 Primary Care Physician: Dr. Geoff Griffin MD Reason For Visit: FEVER Diagnosis Discharge Diagnosis (1) Acidosis, lactic: Status: Inactive Code(s): E87.20 - Acidosis, unspecified (2) Fall from bed, initial encounter: Status: Inactive Code(s): W06.XXXA - Fall from bed, initial encounter (3) Sepsis: Status: Deleted Code(s): A41.9 - Sepsis, unspecified organism (4) Fever: Status: Inactive Code(s): R50.9 - Fever, unspecified (5) Tachypnea: Status: Resolved Code(s): R06.82 - Tachypnea, not elsewhere classified (6) Cough: Status: Resolved Code(s): R05.9 - Cough, unspecified (7) Tachycardia: Status: Resolved Code(s): R00.0 - Tachycardia, unspecified Plan 1. COVID-19 infection without pneumonia #2 osteoarthritis Sepsis was ruled out Medications at Discharge Home Medications omega-3 fatty acids 1,000 mg capsule (Fish Oil Concentrate) 1,000 mg PO QDAY supplement 07/10/17 niacin 500 mg tablet,extended release 24 hr 500 mg PO .3XWEEK 07/17/19 loratadine 10 mg tablet 10 mg PO DAILY allergies 09/23/21 nitroglycerin 0.4 mg sublingual tablet (Nitrostat) 0.4 mg sublingual Q5-15M PRN chest pain #25 tabs 09/23/21 meloxicam 7.5 mg tablet 7.5 mg PO DAILY 10/23/22 nirmatrelvir 300 mg (150 mg x2)-ritonavir 100 mg tablet,dose pack (Paxlovid) See Rx Instructions PO .COMPLEX #30 tabs 10/24/22 Hospital Course Operations None Procedures None Summary of Care Provided Minutes Spent on Discharge: 30 Hospital Course: This 82-year-old white male was seen in the emergency room at [facility] with complaints of generalized weakness and a fall at home which did not cause any significant injuries. In the emergency room, patient had an elevated temperature of 101.9, his O2 sat on room air was 92%. Patient had no complaints other than some weakness. CT of the brain was obtained to rule out a stroke, no acute process was seen, he was administered Tylenol, respiratory swabs for COVID and influenza were obtained, they were negative. Urinalysis was negative for infection, chest x-ray showed no evidence of pneumonia or pneumothorax, lactic acid was elevated at 2.6. Patient was admitted for possible sepsis to PCU, a PCR for COVID was obtained which ultimately was positive. Patient did not require any oxygen and did well in daily activities the next day in the hospital. On 10/24/2022, patient was seen and examined: On examination he appeared in good health and spirits. Vital signs as documented. Skin warm and dry and without overt rashes. Neck without JVD, neck was supple, trachea midline, thyroid was normal. Lungs clear bilaterally, normal air movement was noted. Heart exam notable for regular rhythm, normal sounds and absence of murmurs, rubs or gallops. Abdomen unremarkable and without evidence of organomegaly, masses, or abdominal aortic enlargement. Bowel sounds are present, abdomen is not distended. Extremities nonedematous, no cyanosis was noted, no clubbing was noted. Neuro: Cranial nerves II through XII are grossly intact, no focal motor deficits were noted, sensation to light touch and pinprick intact, motor exam 5/5 throughout. Psych: Patient is alert and oriented x3, he does not appear anxious or depressed, he does not appear agitated. Patient appears stable for discharge home on 10/24/2022. Weight / BMI Weight Weight: 86.7 kg Body Mass Index (BMI) 32.8 ABG / Lab / Microbiology Data 10/24/22 05:32 10/24/22 05:32 Laboratory: Laboratory Results - last 24 hr 10/23/22 20:12: WBC 10.5, RBC 4.98, Hgb 16.0, Hct 48.5, MCV 97.4 H, MCH 32.1 H, MCHC 33.0, RDW Std Deviation 50.2 H, RDW Coeff of Kodi 14.0, Plt Count 218, MPV 9.5, Immature Gran % (Auto) 0.300, Neut % (Auto) 75.3 H, Lymph % (Auto) 12.2 L, Harnett % (Auto) 11.7 H, Eos % (Auto) 0.3, Baso % (Auto) 0.2, Absolute Neuts (auto) 7.9 H, Absolute Lymphs (auto) 1.28, Nucleated RBC % 0, PT 13.7, INR 1.1, APTT 32.4, Sodium 137, Potassium 4.1, Chloride 105, Carbon Dioxide 26.0, Anion Gap 6, BUN 17, Creatinine 1.35 H, Estim Creat Clear Calc 35.33, Est GFR (MDRD) Af Amer 65, Est GFR (MDRD) Non-Af 54 L, BUN/Creatinine Ratio 12.6, Glucose 127 H, Lactic Acid 2.6 H*, Calcium 8.8, Total Bilirubin 0.40, AST 24, ALT 29, Alkaline Phosphatase 88, Troponin I High Sens 7, Total Protein 7.8, Albumin 3.4, Globulin 4.4 H, Albumin/Globulin Ratio 0.8 L, Procalcitonin 0.07 10/23/22 20:56: Urine Color Yellow, Urine Clarity Clear, Urine pH 6.0, Ur Specific Hollister 1.015, Urine Protein 15 H, Urine Glucose (UA) Normal, Urine Ketones Negative, Urine Occult Blood Negative, Urine Nitrite Negative, Urine Bilirubin Negative, Urine Urobilinogen Normal, Ur Leukocyte Esterase Negative, Urine RBC 0 SEEN, Urine WBC 0 SEEN, Ur Squamous Epith Cells 0 SEEN, Urine Bacteria 0 SEEN, Urine Mucus 0 SEEN 10/24/22 00:30: MRSA (PCR) Negative 10/24/22 00:52: Lactic Acid 1.8 10/24/22 05:32: WBC 9.9, RBC 4.42 L, Hgb 14.2, Hct 43.8, MCV 99.1 H, MCH 32.1 H, MCHC 32.4, RDW Std Deviation 51.5 H, RDW Coeff of Kodi 14.0, Plt Count 184, MPV 10.0, Immature Gran % (Auto) 0.400, Neut % (Auto) 71.2 H, Lymph % (Auto) 15.9 L, Harnett % (Auto) 11.6 H, Eos % (Auto) 0.7, Baso % (Auto) 0.2, Absolute Neuts (auto) 7.0, Absolute Lymphs (auto) 1.57, Nucleated RBC % 0, Sodium 140, Potassium 4.0, Chloride 111 H, Carbon Dioxide 24.0, Anion Gap 5, BUN 14, Creatinine 1.10, Estim Creat Clear Calc 43.35, Est GFR (MDRD) Af Amer 82, Est GFR (MDRD) Non-Af 68, BUN/Creatinine Ratio 12.7, Glucose 98, Calcium 8.0 L, Phosphorus 2.1 L, Magnesium 2.1 Microbiology: Microbiology 10/24/22 06:08 Mucosa - Nasopharyngeal Coronavirus COVID-19 PCR - Final SARS-CoV-2 (COVID 19 PCR) 10/24/22 06:08 Mucosa - Nasopharyngeal Respiratory Panel (PCR) - Final 10/23/22 20:56 Urine, Clean Catch Legionella Antigen - Final 10/23/22 20:56 Urine, Clean Catch Streptococcus pneumoniae Antigen (M - Final 10/23/22 20:56 Nasal Secretion SARS-CoV-2 & FLU Antigen (Rapid) - Final Radiography Diagnostic Testing: Radiology Impression Brain CT 10/23/22 20:10 IMPRESSION: There are no acute findings. Chronic involutional changes of the brain. Electronically Signed: Anthony Flores MD at 21:08 EDT , Chest X-Ray 10/23/22 20:45 IMPRESSION: There are no acute findings. Electronically Signed: Anthony Flores MD at 21:09 EDT , D/C Instructions Discharge Diet: No restrictions May resume sexual activity in: - (Quarantine for a total of 10 days after your symptoms started) Weight Bearing Status: Full weight bearing Meaningful Use Info Meaningful Use Diagnoses (Choose all that apply): None applicable Discharge Plan Admission Admit Date/Time: 10/23/22 22:40 Primary Reason for Your Visit: COVID-19 Attending Provider: Esteban Parks Primary Care Provider: Geoff Griffin Chi Consulting Providers: Madisyn Ortiz Discharge Orders/Prescriptions Prescriptions: New Paxlovid 300 mg (150 mg x 2)-100 mg tablets,dose pack See Rx Instructions .ROUTE .COMPLEX Qty: 30 0RF Rx Instructions: take TWO 150 mg tablets of nirmatrelvir with ONE 100 mg tablet of ritonavir twice daily for 5 days Continued omega-3 fatty acids [Fish Oil Concentrate] 1,000 mg capsule 1,000 mg PO QDAY loratadine 10 mg tablet 10 mg PO DAILY nitroglycerin [Nitrostat] 0.4 mg tablet, sublingual 0.4 mg SUBLINGUAL Q5-15M PRN (Reason: chest pain) Qty: 25 6RF Rx Instructions: until response; do not exceed 3 doses per episode niacin 500 mg tablet extended release 24 hr 500 mg PO .3XWEEK meloxicam 7.5 mg tablet 7.5 mg PO DAILY Referrals / Follow Up: Geoff Griffin Chi, MD [Primary Care Provider] - Disposition Disposition (needs filled in before D/C Order can be placed): Home, Self Care Charges/Coding Visit Charges Inpatient E&M: 60256 Disch Hosp
--- NOTE | 2022-10-24 16:00 | CASEMGMT ---
RAFAEL WU Face to Face with patient for initial transition planning/care coordination assessment. RAFAEL WU introduced self and role at [facility]. Patient sitting in chair at beside. Patient willing to participate in assessment and is able to verify his address correctly, but then does not answer additional questions. I verified that patient could hear me, but then he would not answer any of my following questions. Patient states he has no further needs or concerns at this time. I informed patient's nurse of his status. RAFAEL WU then called patients , [place], and completed assessment.? Care providers, pharmacy, and demographics verified. [place] informed of order for discharge today, she denies need for home health at this time.? CM to follow for discharge planning needs that may arise. PCP:Elias Specialists:[facility]acy:[facility] Insurance:Medicare Part A & B Prescription Benefit:?Yes Living Will/HPOA:Yes; thinks the HCPOA is herself LNOK:, Daughter, Son Living Arrangements:Lives with in a 2 story home [employer]; no steps to enter. states their daughter is moving in with them October 28. reports that patient is independent in all ADLs and ambulation at home. Transportation: Self, , daughter, and son DME/HHC: states they have a shower chair, cane, and walker. Denies needs for DME at discharge. denies any previous SNF, and reports HHC but does not recall the company. Disposition Plan:Patient to discharge home with family support and follow-up plans in place. Lyssa ELKINS, RN, CM
--- NOTE | 2022-10-24 16:52 | NURSING ---
called and son. reviewed dc instructions and medications family will bring in clothes then we will take patient down
== END 2022-10-24 18:03 | disposition home or self-care (01) | DRG 179 ==
LOC: ED 21:52 → PCU 23:18
PROVIDERS: Admitting Provider Internal Medicine; Emergency Provider Emergency Medicine; PCP Family Medicine Geriatric Medicine; Visit Provider Internal Medicine
DX: U07.1 COVID-19 (principal); E66.9 Obesity, unspecified; I10 Essential (primary) hypertension; E78.00 Pure hypercholesterolemia, unspecified; I25.10 Atherosclerotic heart disease of native coronary artery without angina pectoris; M19.90 Unspecified osteoarthritis, unspecified site; F41.9 Anxiety disorder, unspecified; J30.2 Other seasonal allergic rhinitis; Z68.33 Body mass index [BMI] 33.0-33.9, adult; Z95.1 Presence of aortocoronary bypass graft; Z66 Do not resuscitate; Z79.82 Long term (current) use of aspirin; Z79.899 Other long term (current) drug therapy; Z87.891 Personal history of nicotine dependence
CPT/HCPCS: 36415; 70450; 71045; 80048; 80053; 81001; 83605; 83735; 84100; 84145; 84484; 85025; 85610; 85730; 87040; 87086; 87428; 87449; 87633; 87635; 87641; 93005; 94668; 94762; 99285; J7030; J7040; A4216

== ENCOUNTER → 2023-04-19 | Outpatient (CLI) | payer MEDICARE, OTHER, SELFPAY ==
--- OUTSIDE RECORDS SUMMARY | 2023-04-19 09:59 | XMS RPT_ITS | CCD ---
Author Name Unknown Address [address] [place] [address] Organization [facility] Care Team Providers Care Medical Authorization Specialist Name Role Phone Terry Edgar Unavailable Unavailable YVES Gudino, Fide Prieto Unavailable Cande Thomas Unavailable Cande Thomas Unavailable Kale Griffin Chi Primary Care Provider Richie, Dr. Rousseau Primary Care Unavailable Kwon, Dr. Antolin Vides Admitting Unavai lable Kwon, Dr. Antolin Vides Attending Sai Kwon, Dr. Antolin Vides Referring Sai Griffin, Dr. Rousseau Primary Care Unavailable Kwon, Dr. Antolin Vides Admitting Unavai lable Kwon, Dr. Antolin Vides Attending Sai Kwon, Dr. Antolin Vides Referring Unavai ANTOLIN Mcneil Referring Unavailable RICHIE, KALE CHI Primary Care Unavailable PATRICK ALVES II Attending Unavailabl e RICHIE, KALE CHI Primary Care Unavailable KWONANTOLIN Referring Unavailable COOPERRIDER IIPATRICK Attending Unavailabl e RICHIE, KALE CHI Primary Care Unavailable ANTOLIN KWON Referring Unavailable KWONANTOLIN MALONEY Attending Unavailable RICHIE, KALE CHI Primary Care Unavailable KWONANTOLIN MALONEY Referring Unavailable KWONANTOLIN MALONEY Attending Unavailable COOPERRIDER II, PATRICK Beavers Attending Unavailabl e RICHIE, KALE CHI Primary Care Unavailable KWONANTOLIN MALONEY K Referring Unavailable RICHIE, KALE CHI Primary Care Unavailable KWONANTOLIN MALONEY K Referring Unavailable KWONANTOLIN Attending Unavailable RICHIE, KALE CHI Primary Care Unavailable KWON, ANTOLIN K Referring Unavailable KWONANTOLIN K Attending Unavailable RICHIE, [facility] Primary Care Unavailable KWON, ANTOLIN K Referring Unavailable KWON, ANTOLIN K Attending Unavailable PATRICK ALVES II Attending Unavailabl e RICHIE, [facility] Primary Care Unavailable KWON, ANTOLIN K Referring Unavailable KWON, ANTOLIN K Attending Unavailable RICHIE, [facility] Primary Care Unavailable KWON, ANTOLIN K Referring Unavailable KWON, ANTOLIN K Referring Unavailable [facility] Primary Care Unavailable ELVIS WALTON Attending Unavailable Richie LAMB, [facility] [place] Primary Care Provider [phone] Allergies Allergy Classification Reported Allergen(s) Allergy Type Date of Onset Reaction(s) Facility (13 sources) erythromycin; Translations: [ERYTHROMYCIN] Drug Allergy 9 Urticaria, anaphyalxis [facility] Work Phone: (4 sources) Penicillins (Antibiotic) drug allergy 1 Urticaria, anaphalxis [facility] Work Phone: (9 sources) oxyCODONE; Translations: [OXYCODONE] Drug Allergy 8 Other: See Comments [facility] (9 sources) Penicillins; Translations: [PENICILLINS] Propensity to adverse reactions 9 [facility] Work Phone: Medications Current Medications Medication Drug Class(es) Dates Sig (Normalized) Sig (Original) benoxinate hydrochloride 4 mg/ml / fluorescein sodium 2.5 mg/ml ophthalmic solution (2 sources) Diagnostic Dye Start: 07-01-2022 End: 07-01-2022 fluorescein-benoxi emily 0.25-0.4 % 1 Drop (FLURESS) Completed/Discontinued Medications Medication Drug Class(es) Dates Sig (Normalized) Sig (Original) Acetaminophen (8 sources) acetaminophen (T YLENOL ARTHRITIS ORAL) Take by mouth. 0 Active Problems Active Problems Problem Classification Problem Date Documented Date Episodic/Chronic Allergic reactions (2 sources) Allergy status to penicillin; Translations: [Allergy to penicillin] Onset: 09-08-2022 09-12-2022 Episodic Cataract (20 sources) Bilateral senile combined form cataracts of eyes; Translations: [Combined forms of age-related cataract, bilateral] Onset: 06-19-2018 Chronic Coronary atherosclerosis and other heart disease (20 sources) Angina pectoris; Translations: [Coronary arteriosclerosis] Onset: 05-04-2010 Resolved: 12-04-2015 12-04-2015 Chronic Coronary atherosclerosis and other heart disease (5 sources) Presence of aortocoronary bypass graft; Translations: [Aortocoronary bypass status] Onset: 05-04-2010 05-04-2010 Episodic Disorders of lipid metabolism (4 sources) Hyperlipidemia; Translations: [Hyperlipidemia, unspecified] Onset: 05-04-2010 05-04-2010 Chronic Essential hypertension (15 sources) Hypertensive disorder; Translations: [Essential (primary) hypertension] Onset: 05-04-2010 05-04-2010 Chronic Glaucoma (16 sources) Preglaucoma, unspecified, bilateral; Translations: [Preglaucoma, unspecified] Onset: 06-23-2015 06-23-2015 Chronic Osteoarthritis (1 source) Unspecified osteoarthritis, unspecified site; Translations: [Unspecified osteoarthritis, unspecified site] Onset: 07-28-2022 Chronic Other eye disorders (9 sources) Asteroid hyalosis of right eye; Translations: [Crystalline deposits in vitreous body, right eye] Onset: 06-23-2015 Chronic Other eye disorders (8 sources) Optic cupping; Translations: [Glaucomatous optic atrophy, bilateral] Onset: 07-06-2018 07-06-2018 Chronic Other eye disorders (8 sources) Posterior vitreous detachment of left eye; Translations: [Vitreous degeneration, left eye] Onset: 09-03-2019 09-03-2019 Chronic Other eye disorders (11 sources) H/O: R cataract extraction; Translations: [Cataract extraction status, right eye] Onset: 07-29-2022 Episodic Other eye disorders (5 sources) H/O: L cataract extraction; Translations: [Cataract extraction status, left eye] Onset: 09-09-2022 09-15-2022 Episodic Other nutritional; endocrine; and metabolic disorders (7 sources) Body mass index (BMI) 32.0-32.9, adult; Translations: [Body mass index (BMI) 31.0-31.9, adult] Onset: 11-09-2012 Resolved: 12-04-2015 11-09-2012 Chronic Other nutritional; endocrine; and metabolic disorders (6 sources) Body mass index (BMI) 31.0-31.9, adult; Translations: [Body Mass Index 31.0-31.9, adult] Onset: 11-09-2012 Resolved: 12-04-2015 12-04-2015 Chronic Other nutritional; endocrine; and metabolic disorders (3 sources) Body mass index (BMI) 33.0-33.9, adult; Translations: [Body Mass Index 33.0-33.9, adult] Onset: 05-27-2014 05-27-2014 Chronic Peripheral and visceral atherosclerosis (8 sources) Arteriosclerotic vascular disease; Translations: [Unspecified atherosclerosis] Onset: 05-04-2010 Resolved: 12-04-2015 12-04-2015 Chronic Retinal detachments; defects; vascular occlusion; and retinopathy (20 sources) Macular hole of left eye; Translations: [Macular cyst, hole, or pseudohole, left eye] Onset: 07-05-2018 Chronic Unclassified (1 source) Long-term drug therapy; Translations: [Other long-term (current) drug therapy] Onset: 05-04-2010 05-04-2010 Past or Other Problems Problem Classification Problem Date Documented Date Episodic/Chronic Blindness and vision defects (20 sources) Hypermetropia; Translations: [Hypermetropia, unspecified eye] Onset: 06-23-2015 06-23-2015 Episodic Inflammation; infection of eye (except that caused by tuberculosis or sexually transmitteddisease) (8 sources) Allergic conjunctivitis of bilateral eyes; Translations: [Acute atopic conjunctivitis, bilateral] Onset: 11-09-2020 11-09-2020 Episodic Other aftercare (3 sources) Long-term drug therapy; Translations: [Other long-term (current) drug therapy] Onset: 05-04-2010 05-04-2010 Episodic Other skin disorders (8 sources) Mass of skin; Translations: [Localized swelling, mass and lump, unspecified] Onset: 11-28-2008 11-28-2008 Episodic Residual codes; unclassified (4 sources) Family history of stroke; Translations: [Family history of stroke] 11-25-2013 Episodic Results Test Name Value Interpretation Reference Range Facil ity Vital Signs Date Time Vital Sign Value Performing Clinician Pilo lees 08-31-2022 09:35-0400 Diastolic blood pressure 86 mm[Hg] Antolin Kwon MD Work Phone: [facility] 08-31-2022 09:35-0400 Heart rate 73 /min Antolin Kwon MD Work Phone: [facility] 08-31-2022 09:35-0400 Systolic blood pressure 140 mm[Hg] Antolin Kwon MD Work Phone: [facility] 07-01-2022 09:05-0400 Diastolic blood pressure 86 mm[Hg] Antolin Kwon MD Work Phone: [facility] 07-01-2022 09:05-0400 Heart rate 73 /min Antolin Kwon MD Work Phone: [facility] 07-01-2022 09:05-0400 Systolic blood pressure 140 mm[Hg] Antolin Kwon MD Work Phone: [facility] 01-06-2017 08:39-0500 Body height 162.56 cm Cande Thomas Work Phone: [facility] Work Phone: 01-06-2017 08:39-0500 Body mass index (BMI) [Ratio] 32.61 kg/m2 Cande Thomas Work Phone: [facility] Work Phone: 01-06-2017 08:39-0500 Body weight 86.18 kg Cande Thomas Work Phone: [facility] Work Phone: 01-06-2017 08:39-0500 Diastolic blood pressure 78 mm[Hg] Cande Thomas Work Phone: [facility] Work Phone: 01-06-2017 08:39-0500 Heart rate 76 /min Cande Thomas Work Phone: [facility] Work Phone: 01-06-2017 08:39-0500 Respiratory rate 16 /min Cande Thomas Work Phone: [facility] Work Phone: 01-06-2017 08:39-0500 Systolic blood pressure 128 mm[Hg] Cande Thomas Work Phone: [facility] Work Phone: 06-10-2016 10:00-0400 Body height 162.56 cm Fide Gudino PA-C Work Phone: [facility] Work Phone: 06-10-2016 10:00-0400 Body mass index (BMI) [Ratio] 33.91 kg/m2 Fide Gudino PA-C Work Phone: [facility] Work Phone: 06-10-2016 10:00-0400 Body weight 89.63 kg Fide Gudino PA-C Work Phone: [facility] Work Phone: 06-10-2016 10:00-0400 Diastolic blood pressure 76 mm[Hg] Fide Gudino PA-C Work Phone: [facility] Work Phone: 06-10-2016 10:00-0400 Heart rate 81 /min Fide Gudino PA-C Work Phone: [facility] Work Phone: 06-10-2016 10:00-0400 Respiratory rate 18 /min Fide Gudino PA-C Work Phone: [facility] Work Phone: 06-10-2016 10:00-0400 Systolic blood pressure 120 mm[Hg] Fide Gudino PA-C Work Phone: [facility] Work Phone: 06-10-2016 10:00-0400 Weight 89.63 kg Terry Edgar [facility] Work Phone: 12-11-2015 10:56-0400 Body surface area Derived from formula 1.92 m2 Fide Gudino PA-C Work Phone: [facility] Work Phone: Encounters Encounter Date Encounter Type Care Provider Facility Start: 10-06-2022 End: 10-06-2022 ambulatory ANTOLIN KWON Facility:[facility] Start: 10-06-2022 End: 10-06-2022 Patient encounter procedure Elvis Walton MD, PhD Work Phone: Ophthalmology Procedures Date Procedure Procedure Detail Performing Clinician Start: 10-06-2022 Computerized ophthal tobias imaging retina Elvis Walton MD, PhD Work Phone: Start: 07-01-2022 Computerized ophthal tobias imaging retina Antolin Kwon MD Work Phone: Start: 07-01-2022 IOL BIOMETRY W/ IOL CALC OU (BOTH EYES) Antolin Kwon MD Work Phone: Start: 05-02-2022 Fundus photography w/interpretation & report Antolin Kwon MD Work Phone: Start: 04-29-2020 History of coronary artery bypass grafting Hx of CABG Antolin Kwon MD Work Phone: Start: 01-06-2017 End: 01-06-2017 Dietary management education, guidance, and counseling Cande Thomas Work Phone: Start: 01-06-2017 End: 01-06-2017 Documentation of current medications Cande Thomas Work Phone: Start: 01-06-2017 End: 01-06-2017 Follow Up Appt 6 months Peter Gomes MD Start: 01-06-2017 End: 01-06-2017 MMM Peter Gomes MD Start: 12-19-2016 End: 12-19-2016 *Hepatic Function Panel Fide martinez PA-C Work Phone: Start: 12-19-2016 End: 12-19-2016 Lipid 1996 panel - Serum or Plasma Fide Gudino PA-C Work Phone: Start: 12-19-2016 End: 12-19-2016 Hepatic function 2000 panel - Serum or Plasma Fide Gudino PA-C Work Phone: Start: 12-19-2016 End: 12-19-2016 Lipid 1996 panel - Serum or Plasma Fide Gudino PA-C Work Phone: Start: 06-10-2016 End: 06-10-2016 Ecg routine ecg w/least 12 lds w/i&r Fide Gudino PA-C Work Phone: Start: 06-10-2016 End: 06-10-2016 Follow Up Appt 6 months Fide martinez PA-C Work Phone: Start: 06-10-2016 End: 06-10-2016 PFM Fide Gudino PA-C Work Phone: Start: 06-10-2016 End: 06-10-2016 Documentation of current medications Fide Gudino PA-C Work Phone: Start: 06-10-2016 End: 06-10-2016 Ecg routine ecg w/least 12 lds w/i&r Fide Gudino PA-C Work Phone: Start: 06-10-2016 End: 06-10-2016 Follow Up Appt 6 months Fide martinez PA-C Work Phone: Start: 06-10-2016 End: 06-10-2016 PF Fide Gudino PA-C Work Phone: Start: 06-01-2016 End: 06-01-2016 *Hepatic Function Panel Peter Gomes MD Start: 06-01-2016 End: 06-01-2016 Lipid 1996 panel - Serum or Plasma Peter Gomes MD Start: 06-01-2016 End: 06-01-2016 Hepatic function 2000 panel - Serum or Plasma Peter Gomes MD Start: 06-01-2016 End: 06-01-2016 Lipid 1996 panel - Serum or Plasma Peter Gomes MD Start: 12-11-2015 End: 12-11-2015 Follow Up Appt 6 months Peter Gomes MD Start: 12-11-2015 End: 12-11-2015 NEIDA Gomes MD Start: 12-11-2015 End: 12-11-2015 Dietary management education, guidance, and counseling Fide Gudino PA-C Work Phone: Start: 12-11-2015 End: 12-11-2015 Follow Up Appt 6 months Peter Gomes MD Start: 12-11-2015 End: 12-11-2015 MM Peter Gomes MD Start: 12-07-2015 End: 12-11-2015 *Hepatic Function Panel Peter Gomes MD Start: 12-07-2015 End: 12-11-2015 Lipid 1996 panel - Serum or Plasma Peter Gomes MD Start: 12-07-2015 End: 12-11-2015 Hepatic function 2000 panel - Serum or Plasma Peter Gomes MD Start: 12-07-2015 End: 12-11-2015 Lipid 1996 panel - Serum or Plasma Peter Gomes MD Start: 06-15-2015 End: 06-15-2015 Follow Up Appt 6 months Fide martinez PA-C Work Phone: Start: 06-15-2015 End: 06-15-2015 PF Fide Gudino PA-C Work Phone: Start: 06-15-2015 End: 06-15-2015 Follow Up Appt 6 months Fide martinez PA-C Work Phone: Start: 06-15-2015 End: 06-15-2015 PFM Fide Gudino PA-C Work Phone: Start: 02-25-2015 End: 06-05-2015 *Hepatic Function Panel Peter Gomes MD Start: 02-25-2015 End: 06-05-2015 Lipid 1996 panel - Serum or Plasma Peter Gomes MD Start: 02-25-2015 End: 06-05-2015 Hepatic function 2000 panel - Serum or Plasma Peter Gomes MD Start: 02-25-2015 End: 06-05-2015 Lipid 1996 panel - Serum or Plasma Peter Gomes MD Start: 12-15-2014 End: 12-16-2014 Documentation of current medications Peter Gomes MD Start: 12-15-2014 End: 12-15-2014 Ecg routine ecg w/least 12 lds w/i&r Peter Gomes MD Start: 12-15-2014 End: 12-15-2014 Follow Up Appt 6 months Peter Gomes MD Start: 12-15-2014 End: 12-15-2014 MMM Peter Gomes MD Start: 12-15-2014 End: 12-16-2014 Documentation of current medications Peter Gomes MD Start: 12-15-2014 End: 12-15-2014 Ecg routine ecg w/least 12 lds w/i&r Peter Gomes MD Start: 12-15-2014 End: 12-15-2014 Follow Up Appt 6 months Peter Gomes MD Start: 12-15-2014 End: 12-15-2014 MMM Peter Gomes MD Start: 08-21-2014 End: 08-26-2014 *Hepatic Function Panel Peter Gomes MD Start: 08-21-2014 End: 08-26-2014 Lipid 1996 panel - Serum or Plasma Peter Gomes MD Start: 08-21-2014 End: 08-26-2014 Hepatic function 2000 panel - Serum or Plasma Peter Gomes MD Start: 08-21-2014 End: 08-26-2014 Lipid 1996 panel - Serum or Plasma Peter Gomes MD Start: 05-27-2014 End: 05-28-2014 Documentation of current medications Fide Gudino PA-C Work Phone: Start: 05-27-2014 End: 05-27-2014 Ecg routine ecg w/least 12 lds w/i&r Fide Gudino PA-C Work Phone: Start: 05-27-2014 End: 05-27-2014 Follow Up Appt 6 months Fide martinez PA-C Work Phone: Start: 05-27-2014 End: 05-27-2014 PFM Fide Gudino PA-C Work Phone: Start: 05-27-2014 End: 05-28-2014 Documentation of current medications Fide Gudino PA-C Work Phone: Start: 05-27-2014 End: 05-27-2014 Ecg routine ecg w/least 12 lds w/i&r Fide Gudino PA-C Work Phone: Start: 05-27-2014 End: 05-27-2014 Follow Up Appt 6 months Fide martinez PA-C Work Phone: Start: 05-27-2014 End: 05-27-2014 PFIda Gudino PA-C Work Phone: Start: 05-19-2014 End: 05-21-2014 *Hepatic Function Panel Peter Gomes MD Start: 05-19-2014 End: 05-21-2014 Lipid 1996 panel - Serum or Plasma Peter Gomes MD Start: 05-19-2014 End: 05-21-2014 Hepatic function 2000 panel - Serum or Plasma Peter Gomes MD Start: 05-19-2014 End: 05-21-2014 Lipid 1996 panel - Serum or Plasma Peter Gomes MD Start: 11-25-2013 End: 05-15-2014 *Hepatic Function Panel Peter Gomes MD Start: 11-25-2013 End: 11-25-2013 Follow Up Appt 6 months Peter Gomes MD Start: 11-25-2013 End: 05-15-2014 Lipid 1996 panel - Serum or Plasma Peter Gomes MD Start: 11-25-2013 End: 11-25-2013 [facility] Peter Gomes MD Start: 11-25-2013 End: 11-25-2013 Follow Up Appt 6 months Peter Gomes MD Start: 11-25-2013 End: 05-15-2014 Hepatic function 2000 panel - Serum or Plasma Peter Gomes MD Start: 11-25-2013 End: 05-15-2014 Lipid 1996 panel - Serum or Plasma Peter Gomes MD Start: 11-25-2013 End: 11-25-2013 [facility] Peter Gomes MD Start: 10-28-2013 End: 11-15-2013 *Hepatic Function Panel Peter Gomes MD Start: 10-28-2013 End: 11-15-2013 Lipid 1996 panel - Serum or Plasma Peter Gomes MD Start: 10-28-2013 End: 11-15-2013 Hepatic function 2000 panel - Serum or Plasma Peter Gomes MD Start: 10-28-2013 End: 11-15-2013 Lipid 1996 panel - Serum or Plasma Peter Gomes MD Start: 05-09-2013 End: 05-09-2013 Ecg routine ecg w/least 12 lds w/i&r Fide Gudino PA-C Work Phone: Start: 05-09-2013 End: 05-09-2013 Follow Up Appt 6 months Fide martinez PA-C Work Phone: Start: 05-09-2013 End: 05-09-2013 PFM Fide Gudino PA-C Work Phone: Start: 05-09-2013 End: 05-09-2013 Ecg routine ecg w/least 12 lds w/i&r Fide Gudino PA-C Work Phone: Start: 05-09-2013 End: 05-09-2013 Follow Up Appt 6 months Fide martinez PA-C Work Phone: Start: 05-09-2013 End: 05-09-2013 PF Fide Gudino PA-C Work Phone: Start: 03-30-2013 End: 05-02-2013 *Hepatic Function Panel Peter Gomes MD Start: 03-30-2013 End: 05-02-2013 Lipid 1996 panel - Serum or Plasma Peter Gomes MD Start: 03-30-2013 End: 05-02-2013 Hepatic function 2000 panel - Serum or Plasma Peter Gomes MD Start: 03-30-2013 End: 05-02-2013 Lipid 1996 panel - Serum or Plasma Peter Gomes MD Start: 11-09-2012 End: 05-01-2013 *Hepatic Function Panel Peter Gomes MD Start: 11-09-2012 End: 05-01-2013 Follow Up Appt 6 months Peter Gomes MD Start: 11-09-2012 End: 05-01-2013 Lipid 1996 panel - Serum or Plasma Peter Gomes MD Start: 11-09-2012 End: 05-01-2013 MMIda Gomes MD Start: 11-09-2012 End: 05-01-2013 Follow Up Appt 6 months Peter Gomes MD Start: 11-09-2012 End: 05-01-2013 Hepatic function 2000 panel - Serum or Plasma Peter Gomes MD Start: 11-09-2012 End: 05-01-2013 Lipid 1996 panel - Serum or Plasma Peter Gomes MD Start: 11-09-2012 End: 05-01-2013 MMIda Gomes MD Start: 03-22-2012 End: 05-01-2013 Echocardiography Peter Gomes MD Start: 03-22-2012 End: 03-22-2012 Follow Up Appt 6 months Peter Gomes MD Start: 03-22-2012 End: 05-01-2013 Nuclear stress test -exercise Peter loera MD Start: 03-22-2012 End: 05-01-2013 PFM Peter Gomes MD Start: 03-22-2012 End: 05-01-2013 Echocardiography Peter Gomes MD Start: 03-22-2012 End: 03-22-2012 Lipid 1996 panel Peter Gomes MD Start: 03-22-2012 End: 05-01-2013 Nuclear stress test -exercise Peter loera MD Start: 03-22-2012 End: 05-01-2013 PFM Peter Gomes MD Start: 01-02-2012 End: 01-02-2012 Echocardiography Peter Gomes MD Start: 01-02-2012 End: 01-02-2012 Echocardiography Peter Goems MD Start: 06-30-2011 End: 12-27-2011 *Hepatic Function Panel Peter Gomes MD Start: 06-30-2011 End: 06-30-2011 Follow Up Appt 6 months Peter Gomes MD Start: 06-30-2011 End: 12-27-2011 Lipid 1996 panel - Serum or Plasma Peter Gomes MD Start: 06-30-2011 End: 06-30-2011 Follow Up Appt 6 months Peter Gomes MD Start: 06-30-2011 End: 12-27-2011 Hepatic function 2000 panel - Serum or Plasma Peter Gomes MD Start: 06-30-2011 End: 12-27-2011 Lipid 1996 panel - Serum or Plasma Peter Gomes MD History of coronary artery bypass grafting Hx of CABG Antolin Kwon MD Work Phone: History of coronary artery bypass grafting Hx of CABG Antolin Kwon MD Work Phone: History of coronary artery bypass grafting Hx of CABG Antolin Kwon MD Work Phone: Plan of Treatment Date Care Activity Detail Author Start: 10-21-2023 End: 03-29-2024 OCT MACULA CIRRUS OU (BOTH EYES) OCT MACULA CIRRUS OU (BOTH EYES) OPHT Imaging Routine Lamellar macular hole of left eye Epiretinal membrane (ERM) of left eye Expected: 10/21/2023, Expires: 03/29/2024 [facility] Work Phone: Payers Date Payer Category Payer Unknown MMO MMO MEDICARE SUPPLEMENT [id number] 2019-Present [phone] [address] [place] [address] Indemnity [id number] 2019 Unknown [id number] 2005 Medicare MEDICARE MEDICAR E A AND B [id number] 2005-Present [phone] [place] [address] Medicare [id number] 2005 Medicare [id number] 1940 Unknown [id number] 1940 Unknown [id number] Social History Date Type Detail Facility Start: 10-15-2018 End: 07-29-2022 Tobacco smoking status NHIS Ex-smoker [facility] End: 10-15-1985 History of tobacco use Current smoker [facility] End: 10-15-1985 History of tobacco use Cigarette Smoker [facility] Start: 10-15-2018 End: 07-29-2022 Tobacco use and exposure Smokeless tobacco non-user [facility] Start: 05-27-2021 End: 10-06-2022 Alcohol intake Current non-drinker of alcohol (finding) [facility] Start: 1940 Sex Assigned At Not on file [facility] Start: 09-09-2022 End: 2022 History of Social function [facility] Start: 09-09-2022 End: 2022 Tobacco use panel [facility] National Score (1-100), lower number is lower risk 59 [facility] Tobacco smoking status WIIS Tobacco smoking consumption unknown [facility] Work Phone: Clinical Notes 06-10-2016 to 10-06-2022 Elvis Walton MD, PhD - 10/06/2022 11:21 AM EDTPatient Patrick Garnica II, OD - 2022 3:26 PM EDTPatient Patrick Garnica II, OD - 09/15/2022 9:31 AM EDT Note Date & Type Note Facility 10-06-2022 Note HNO ID: [id number] Author: Elvis Walton MD, PhD Service: ? Author Type: Physician Type: Progress Notes Filed: 10/06/2022 11:31 AM Note Text: Referred to Dr. Ribeiro by Dr. Kwon Saw Dr. Alves for refractino yesterday and was 20/20 OU 1. 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 Posterior chamber intraocular lens (PCIOL) both eyes (Dr. Kwon) - 2022 recent surgery Plan: Rec observation Return with retina annually I have confirmed and edited as necessary the relevant ophthalmic history, ROS, and the neuro exam findings as obtained by others. I have seen and examined this patient. I have discussed the case and the management of this patient's care with the Resident/Fellow, if applicable. I also have reviewed and agree with the assessment and plan as stated above and agree with all of its relevant components. Elvis Walton MD [facility] 10-06-2022 History of Present illness Narrative Referred to Dr. Ribeiro by Dr. Kwon Saw Dr. Alves for refractino yesterday and was 20/20 OU 1. 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 Posterior chamber intraocular lens (PCIOL) both eyes (Dr. Kwon) - 2022 recent surgery Plan: Rec observation Return with retina annually I have confirmed and edited as necessary the relevant ophthalmic history, ROS, and the neuro exam findings as obtained by others. I have seen and examined this patient. I have discussed the case and the management of this patient's care with the Resident/Fellow, if applicable. I also have reviewed and agree with the assessment and plan as stated above and agree with all of its relevant components. Elvis Walton MD documented in this encounter [facility] 2022 Note HNO ID: [id number] Author: Patrick Alves II, OD Service: ? 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 Posterior chamber intraocular lenses are well positioned and clear. Continue schedule of postoperative medications as directed. Update glasses to maximize visual performance. Recheck in 6 months. Instruct patient to immediately report any change in condition outside of expected and discussed symptoms. 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 I have confirmed and edited as necessary the relevant ophthalmic history, ROS, and the neuro exam findings as obtained by others. I have seen and examined Ha Steven. I have discussed the case and the management of this patient's care with the Resident/Fellow, if applicable. I also have reviewed and agree with the assessment and plan as stated above and agree with all of its relevant components. Patrick Alves II, OD [facility] 2022 Instructions Patrick Alves II, OD - 2022 3:27 PM EDT Assessment and Plan Z98.42, Z96.1 Status post cataract extraction and insertion of intraocular lens of left eye (primary encounter diagnosis) Z98.41, Z96.1 Status post cataract extraction and insertion of intraocular lens of right eye Comment: Healing well both eyes. Posterior chamber intraocular lenses are well positioned and clear. Continue schedule of postoperative medications as directed. Update glasses to maximize visual performance. Recheck in 6 months. Instruct patient to immediately report any change in condition outside of expected and discussed symptoms. 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 I have confirmed and edited as necessary the relevant ophthalmic history, ROS, and the neuro exam findings as obtained by others. I have seen and examined Ha Steven. I have discussed the case and the management of this patient's care with the Resident/Fellow, if applicable. I also have reviewed and agree with the assessment and plan as stated above and agree with all of its relevant components. Patrick Alves II OD documented in this encounter [facility] 2022 History of Present illness Narrative Assessment and Plan Z98.42, Z96.1 Status post cataract extraction and insertion of intraocular lens of left eye (primary encounter diagnosis) Z98.41, Z96.1 Status post cataract extraction and insertion of intraocular lens of right eye Comment: Healing well both eyes. Posterior chamber intraocular lenses are well positioned and clear. Continue schedule of postoperative medications as directed. Update glasses to maximize visual performance. Recheck in 6 months. Instruct patient to immediately report any change in condition outside of expected and discussed symptoms. 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 I have confirmed and edited as necessary the relevant ophthalmic history, ROS, and the neuro exam findings as obtained by others. I have seen and examined Ha Steven. I have discussed the case and the management of this patient's care with the Resident/Fellow, if applicable. I also have reviewed and agree with the assessment and plan as stated above and agree with all of its relevant components. Patrick Alves II, OD documented in this encounter [facility] 09-15-2022 Note HNO ID: [id number] Author: Patrick Alves II, OD Service: ? 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 Corrected to 20/20 in each eye with astigmatic correction. Posterior chamber intraocular lenses are well positioned and clear. Continue schedule of postoperative medications as directed. Recheck refraction at next visit before pseudophakic spectacles obtained. Recheck in 3 weeks. Instruct patient to immediately report any change in condition outside of expected and discussed symptoms. I have confirmed and edited as necessary the relevant ophthalmic history, ROS, and the neuro exam findings as obtained by others. I have seen and examined Ha Steven. I have discussed the case and the management of this patient's care with the Resident/Fellow, if applicable. I also have reviewed and agree with the assessment and plan as stated above and agree with all of its relevant components. Patrick Alves II, OD [facility] 09-15-2022 Instructions Patrick Alves II, OD - 09/15/2022 9:33 AM EDT Assessment and Plan Z98.42, Z96.1 Status post cataract extraction and insertion of intraocular lens of left eye (primary encounter diagnosis) Z98.41, Z96.1 Status post cataract extraction and insertion of intraocular lens of right eye Comment: Healing well both eyes. Corrected to 20/20 in each eye with astigmatic correction. Posterior chamber intraocular lenses are well positioned and clear. Continue schedule of postoperative medications as directed. Recheck refraction at next visit before pseudophakic spectacles obtained. Recheck in 3 weeks. Instruct patient to immediately report any change in condition outside of expected and discussed symptoms. I have confirmed and edited as necessary the relevant ophthalmic history, ROS, and the neuro exam findings as obtained by others. I have seen and examined Ha Steven. I have discussed the case and the management of this patient's care with the Resident/Fellow, if applicable. I also have reviewed and agree with the assessment and plan as stated above and agree with all of its relevant components. Patrick Alves II, OD documented in this encounter [facility] 09-15-2022 History of Present illness Narrative Assessment and Plan Z98.42, Z96.1 Status post cataract extraction and insertion of intraocular lens of left eye (primary encounter diagnosis) Z98.41, Z96.1 Status post cataract extraction and insertion of intraocular lens of right eye Comment: Healing well both eyes. Corrected to 20/20 in each eye with astigmatic correction. Posterior chamber intraocular lenses are well positioned and clear. Continue schedule of postoperative medications as directed. Recheck refraction at next visit before pseudophakic spectacles obtained. Recheck in 3 weeks. Instruct patient to immediately report any change in condition outside of expected and discussed symptoms. I have confirmed and edited as necessary the relevant ophthalmic history, ROS, and the neuro exam findings as obtained by others. I have seen and examined Ha Steven. I have discussed the case and the management of this patient's care with the Resident/Fellow, if applicable. I also have reviewed and agree with the assessment and plan as stated above and agree with all of its relevant components. Patrick Alves II, LAUREN documented in this encounter [facility] 09-09-2022 Note HNO ID: [id number] Author: Antolin Kwon MD Service: ? Author Type: Physician Type: Progress Notes Filed: 09/09/2022 9:28 AM Note Text: ASSESSMENT/PLAN: 1. Status post cataract extraction and insertion of intraocular lens of left eye - ICD9: V45.61, V43.1, ICD10: Z98.42, Z96.1 (primary diagnosis) VISUAL PROGNOSIS GUARDED. Current Ophthalmic Meds keTORolac (ACULAR) 0.5 % ophthalmic solution Use 1 Drop in the left eye four times daily. Use one drop four times daily for one week then three times daily until 10-13-22 prednisoLONE acetate (PRED FORTE) 1 % ophthalmic suspension Use 1 Drop in the left eye four times daily. Use one drop four times daily for one week then three times daily until 10-13-22 2. Status post cataract extraction and insertion of intraocular lens of right eye - ICD9: V45.61, V43.1, ICD10: Z98.41, Z96.1 propylene glycol (SYSTANE COMPLETE OPHTHALMIC) Use 1 Drop in both eyes three times daily Olopatadine (PATADAY) 0.2 % drop Use 1 Drop in both eyes twice daily. Continue post-operative care with Dr. Alves. 3. Lamellar macular hole of left eye - ICD9: 362.54, ICD10: H35.342 4. Epiretinal membrane (ERM) of left eye - ICD9: 362.56, ICD10: H35.[address] Ribeiro for further evaluation. 5. Essential hypertension - ICD9: 401.9, ICD10: I10 Continue care with primary care physician I have confirmed and edited as necessary the relevant ophthalmic history, review of systems, surgical history, and ophthalmological examination findings as obtained by the ophthalmic technical staff. I have seen and examined Ha Steven. I have discussed the examination findings, diagnosis, and treatment options with Ha Steven and/or his family. I have also reviewed and agree with the assessment and plan as stated above and agree with all its relevant components. I gave the patient the opportunity to ask questions about the findings, diagnosis, and treatment options. Antolin Kwon MD [facility] 09-08-2022 Note Post Operative Note: Post-Procedure Diagnosis: 1. 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 Cataract Extraction with Intraocular Lens Implant Left Eye Surgeon: Antolin Kwon MD Resident/Fellow/Other Prosthetics Assistant: None Estimated Blood Loss (mL): none Specimen: no Findings: 1. 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 The operative eye was dilated in the preoperative area. The patient was then taken to the operating room where timeout was performed before starting the procedure. Combined anesthesia with intravenous sedation and topical tetracaine eyedrops were given the left eye. The operative eye was prepped and draped in the standard sterile ophthalmic fashion in preparation for ophthalmic surgery. A Jeremiah wire speculum was then inserted between the eyelids of the left eye and the operating microscope was placed over the left eye. A paracentesis incision was made approximately 30 away from the planned surgical incision site with the help of MVR blade. 1% lidocaine MPF with Phenylephrine 1.5% PF was injected into the anterior chamber through the paracentesis incision. A near limbal clear corneal incision was fashioned in the temporal quadrant just outside the vascular arcade and Viscoat was injected into anterior chamber to firm the eye. A bent needle cystotome was used and Utrata forceps were utilized to create a continuous curvilinear capsulorrhexis. BSS was injected beneath the anterior capsule to hydrodissect the nucleus from adjacent cortex and capsule. The residual cortex were then aspirated with irrigation aspiration handpiece. The posterior capsule was then polished with the help of soft irrigation-aspiration tip. Provisc viscoelastic was then injected into the eye to reform the anterior chamber and to open the capsular bag. The intraocular lens implant was taken from its sterile wrapping, inspected under the surgical microscope and found to be in good condition. The intraocular lens implant 21.0D was injected into the capsule bag. The Provisc was then aspirated from the anterior chamber and from behind the intraocular lens implant. The anterior chamber was inflated with the help of BSS to moderate tension. The edges of the surgical incision were then hydrated with the help of BSS. Vigamox was then injected into the anterior chamber and into the capsule bag through the paracentesis incision. The surgical wound was then inspected and found to be watertight. The wire speculum and drapes were then removed. Pred Forte eyedrops, Acular eyedrops and Betadine 5% sterile ophthalmic solution were instilled in the conjunctival sac. The patient tolerated the procedure well and was taken to recovery room in stable condition. Attestation: Note Completion: Attending AttestationI performed the procedure without a resident Electronic Signatures: Antolin Kwon) (Signed 08-Sep-2022 12:51) Authored: Post Operative Note, Note Completion Last Updated: 08-Sep-2022 12:51 by Antolin Kwon) [facility] 09-08-2022 Note History & Physical R eviewed: I have reviewed the History and Physical dated: 31-Aug-2022 History and Physical reviewed and relevant findings noted. Patient examined to review pertinent physical findings.: No significant changes Home Medications Reviewed: no changes noted Allergies Reviewed: no changes noted ERAS (Enhanced Recovery After Surgery): ERAS Patient: no Consent: COVID-19 Consent: COVID-19 Risk ConsentSurgeon has reviewed hermosillo risks related to the risk of mynor COVID-19 and if they contract COVID-19 what the risks are. Electronic Signatures: Antolin Kwon) (Signed 08-Sep-2022 11:05) Authored: History & Physical Reviewed, ERAS, Consent, Note Completion Last Updated: 08-Sep-2022 11:05 by Antolin Kwon) [facility] 09-08-2022 Miscellaneous Notes Post Operative Note: Post-Procedure Diagnosis: 1. 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 Cataract Extraction with Intraocular Lens Implant Left Eye Surgeon: Antolin Kwon MD Resident/Fellow/Other Prosthetics Assistant: None Estimated Blood Loss (mL): none Specimen: no Findings: 1. 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 The operative eye was dilated in the preoperative area. The patient was then taken to the operating room where timeout was performed before starting the procedure. Combined anesthesia with intravenous sedation and topical tetracaine eyedrops were given the left eye. The operative eye was prepped and draped in the standard sterile ophthalmic fashion in preparation for ophthalmic surgery. A Jeremiah wire speculum was then inserted between the eyelids of the left eye and the operating microscope was placed over the left eye. A paracentesis incision was made approximately 30 away from the planned surgical incision site with the help of MVR blade. 1% lidocaine MPF with Phenylephrine 1.5% PF was injected into the anterior chamber through the paracentesis incision. A near limbal clear corneal incision was fashioned in the temporal quadrant just outside the vascular arcade and Viscoat was injected into anterior chamber to firm the eye. A bent needle cystotome was used and Utrata forceps were utilized to create a continuous curvilinear capsulorrhexis. BSS was injected beneath the anterior capsule to hydrodissect the nucleus from adjacent cortex and capsule. The residual cortex were then aspirated with irrigation aspiration handpiece. The posterior capsule was then polished with the help of soft irrigation-aspiration tip. Provisc viscoelastic was then injected into the eye to reform the anterior chamber and to open the capsular bag. The intraocular lens implant was taken from its sterile wrapping, inspected under the surgical microscope and found to be in good condition. The intraocular lens implant 21.0D was injected into the capsule bag. The Provisc was then aspirated from the anterior chamber and from behind the intraocular lens implant. The anterior chamber was inflated with the help of BSS to moderate tension. The edges of the surgical incision were then hydrated with the help of BSS. Vigamox was then injected into the anterior chamber and into the capsule bag through the paracentesis incision. The surgical wound was then inspected and found to be watertight. The wire speculum and drapes were then removed. Pred Forte eyedrops, Acular eyedrops and Betadine 5% sterile ophthalmic solution were instilled in the conjunctival sac. The patient tolerated the procedure well and was taken to recovery room in stable condition. Attestation: Note Completion: Attending Attestation I performed the procedure without a resident Electronic Signatures: Antolin Kwon) (Signed 08-Sep-2022 12:51) Authored: Post Operative Note, Note Completion Last Updated: 08-Sep-2022 12:51 by Antolin Kwon) documented in this encounter [facility] Work Phone: 09-08-2022 Note Formatting of this n ote is different from the original. Post Operative Note: Post-Procedure Diagnosis: 1. 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 Cataract Extraction with Intraocular Lens Implant Left Eye Surgeon: Antolin Kwon MD Resident/Fellow/Other Prosthetics Assistant: None Estimated Blood Loss (mL): none Specimen: no Findings: 1. 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 The operative eye was dilated in the preoperative area. The patient was then taken to the operating room where timeout was performed before starting the procedure. Combined anesthesia with intravenous sedation and topical tetracaine eyedrops were given the left eye. The operative eye was prepped and draped in the standard sterile ophthalmic fashion in preparation for ophthalmic surgery. A Jeremiah wire speculum was then inserted between the eyelids of the left eye and the operating microscope was placed over the left eye. A paracentesis incision was made approximately 30 away from the planned surgical incision site with the help of MVR blade. 1% lidocaine MPF with Phenylephrine 1.5% PF was injected into the anterior chamber through the paracentesis incision. A near limbal clear corneal incision was fashioned in the temporal quadrant just outside the vascular arcade and Viscoat was injected into anterior chamber to firm the eye. A bent needle cystotome was used and Utrata forceps were utilized to create a continuous curvilinear capsulorrhexis. BSS was injected beneath the anterior capsule to hydrodissect the nucleus from adjacent cortex and capsule. The residual cortex were then aspirated with irrigation aspiration handpiece. The posterior capsule was then polished with the help of soft irrigation-aspiration tip. Provisc viscoelastic was then injected into the eye to reform the anterior chamber and to open the capsular bag. The intraocular lens implant was taken from its sterile wrapping, inspected under the surgical microscope and found to be in good condition. The intraocular lens implant 21.0D was injected into the capsule bag. The Provisc was then aspirated from the anterior chamber and from behind the intraocular lens implant. The anterior chamber was inflated with the help of BSS to moderate tension. The edges of the surgical incision were then hydrated with the help of BSS. Vigamox was then injected into the anterior chamber and into the capsule bag through the paracentesis incision. The surgical wound was then inspected and found to be watertight. The wire speculum and drapes were then removed. Pred Forte eyedrops, Acular eyedrops and Betadine 5% sterile ophthalmic solution were instilled in the conjunctival sac. The patient tolerated the procedure well and was taken to recovery room in stable condition. Attestation: Note Completion: Attending Attestation I performed the procedure without a resident Electronic Signatures: Antolin Kwon) (Signed 08-Sep-2022 12:51) Authored: Post Operative Note, Note Completion Last Updated: 08-Sep-2022 12:51 by Antolin Kwon) [facility] Work Phone: 09-08-2022 History and physical note History & Physical Reviewed: I have reviewed the History and Physical dated: 31-Aug-2022 History and Physical reviewed and relevant findings noted. Patient examined to review pertinent physical findings.: No significant changes Home Medications Reviewed: no changes noted Allergies Reviewed: no changes noted ERAS (Enhanced Recovery After Surgery): ERAS Patient: no Consent: COVID-19 Consent: COVID-19 Risk Consent Surgeon has reviewed hermosillo risks related to the risk of mynor COVID-19 and if they contract COVID-19 what the risks are. Electronic Signatures: Antolin Kwon) (Signed 08-Sep-2022 11:05) Authored: History & Physical Reviewed, ERAS, Consent, Note Completion Last Updated: 08-Sep-2022 11:05 by Antolin Kwon) [facility] Work Phone: 09-08-2022 History and physical note History & Physical Reviewed: I have reviewed the History and Physical dated: 31-Aug-2022 History and Physical reviewed and relevant findings noted. Patient examined to review pertinent physical findings.: No significant changes Home Medications Reviewed: no changes noted Allergies Reviewed: no changes noted ERAS (Enhanced Recovery After Surgery): ERAS Patient: no Consent: COVID-19 Consent: COVID-19 Risk Consent Surgeon has reviewed hermosillo risks related to the risk of mynor COVID-19 and if they contract COVID-19 what the risks are. Electronic Signatures: Antolin Kwon) (Signed 08-Sep-2022 11:05) Authored: History & Physical Reviewed, ERAS, Consent, Note Completion Last Updated: 08-Sep-2022 11:05 by Antolin Kwon) documented in this encounter [facility] Work Phone: 08-31-2022 Note HNO ID: [id number] Author: Antolin Kwon MD Service: ? Author Type: Physician Type: Progress Notes Filed: 08/31/2022 9:46 AM Note Text: ASSESSMENT/PLAN: 1. Combined forms of age-related cataract of left eye - ICD9: 366.19, ICD10: H25.812 (primary diagnosis) Cataract Presurgical Documentation Cataract: Left Eye Current Visual Acuity Right Eye Distance SC 20/25 Left Eye Distance CC 20/50 Best Corrected Vision Right Eye 20/20 Visual Function: Ha Steven states that the decline in vision from the cataract impedes his abilities as listed in the HPI, as well as other activities of daily living. Ha Steven has confirmed that he is no longer able to function adequately on a day-to-day basis because of his current visual condition. Further, it is my medical opinion that the cataract is the primary cause, or at least a significantly contributory cause of his visual dysfunction. With uncomplicated cataract surgery and lens implantation, it is my expectation that his visual function and quality of life will improve, significantly. The risks, benefits, alternatives, personnel and complications of cataract surgery with lens implantation were discussed with Ha Steven in detail. He appeared to understand and asked that I proceed with plans for surgery. Upon eye examination, patient was found to have a visually significant cataract Left Eye. Discussed cataract surgery with patient and different intraocular lens implant options with patient: basic monofocal intraocular lens implant, Toric intraocular lens implant, and presbyopia correction intraocular lens implant. In my medical opinion, based on medical history and ocular examination, cataract surgery with intraocular lens implant will correct patient's vision and improve quality of patient's daily living activities. Patient wishes to have traditional cataract surgery with basic intraocular lens Left eye. Patient wishes to have cataract surgery with the option stated above. Patient understands that an intraocular lens implant does not necessarily replace the need for glasses. Patient understands that it is impossible for the surgeon to inform him/her of every possible complication that may occur. The surgeon has answered all of the patient's questions. Patient understands that if he/she has a mature or dense cataract, pseudoexfoliation cataract, or history of use of Flomax, he/she may require the use of Maluyugin Ring and/or Vision Blue during surgery. Patient understands the risks, benefits, and alternatives to surgery. Plan Cataract Surgery with Monofocal Intraocular Lens Implant Left Eye on 09/08/2022 at [facility]. Continue: Systane Complete solution instill 1 drop 3 times daily Both Eyes. PHYSICAL EXAM: Vital Signs: Blood pressure 140/86, pulse 73. Respiratory: Normal breath sounds, no wheezing. CARD: Normal heart sounds 1 AND 2, normal sinus rhythm. 2. Status post cataract extraction and insertion of intraocular lens of right eye - ICD9: V45.61, V43.1, ICD10: Z98.41, Z96.1 Current Ophthalmic Meds keTORolac (ACULAR) 0.5 % ophthalmic solution Use 1 Drop in the right eye four times daily. prednisoLONE acetate (PRED FORTE) 1 % ophthalmic suspension Use 1 Drop in the right eye four times daily. 3. Lamellar macular hole of left eye - ICD9: 362.54, ICD10: H35.342 Monitor 4. Epiretinal membrane (ERM) of left eye - ICD9: 362.56, ICD10: H35.372 Monitor 5. Essential hypertension - ICD9: 401.9, ICD10: I10 Continue to monitor with primary care physician. 6. 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 Antolin Kwon MD I have confirmed and edited as necessary the relevant ophthalmic history, review of systems, surgical history, and ophthalmological examination findings as obtained by the ophthalmic technical staff. I have seen and examined Ha Steven. I have discussed the examination findings, diagnosis, and treatment options with Ha Steven and/or his family. I have also reviewed and agree with the assessment and plan as stated above and agree with all its relevant components. I gave the patient the opportunity to ask questions about the findings, diagnosis, and treatment options. [facility] 08-31-2022 Instructions Antolin Kwon MD - 08/31/2022 9:45 AM EDT Plan Cataract Surgery with Monofocal Intraocular Lens Implant Left Eye on 09/08/2022 at [facility]. Continue: Systane Complete solution instill 1 drop 3 times daily Both Eyes. Current Ophthalmic Meds keTORolac (ACULAR) 0.5 % ophthalmic solution Use 1 Drop in the right eye four times daily. prednisoLONE acetate (PRED FORTE) 1 % ophthalmic suspension Use 1 Drop in the right eye four times daily. If you have any questions please contact our office at [phone]. After office hours or on the weekend, please call Dr. Kwon on his cell phone at [phone]. documented in this encounter [facility] 08-31-2022 History of Present illness Narrative ASSESSMENT/PLAN: 1. Combined forms of age-related cataract of left eye - ICD9: 366.19, ICD10: H25.812 (primary diagnosis) Cataract Presurgical Documentation Cataract: Left Eye Current Visual Acuity Right Eye Distance SC 20/25 Left Eye Distance CC 20/50 Best Corrected Vision Right Eye 20/20 Visual Function: Ha Steven states that the decline in vision from the cataract impedes his abilities as listed in the HPI, as well as other activities of daily living. Ha Steven has confirmed that he is no longer able to function adequately on a day-to-day basis because of his current visual condition. Further, it is my medical opinion that the cataract is the primary cause, or at least a significantly contributory cause of his visual dysfunction. With uncomplicated cataract surgery and lens implantation, it is my expectation that his visual function and quality of life will improve, significantly. The risks, benefits, alternatives, personnel and complications of cataract surgery with lens implantation were discussed with Ha Steven in detail. He appeared to understand and asked that I proceed with plans for surgery. Upon eye examination, patient was found to have a visually significant cataract Left Eye. Discussed cataract surgery with patient and different intraocular lens implant options with patient: basic monofocal intraocular lens implant, Toric intraocular lens implant, and presbyopia correction intraocular lens implant. In my medical opinion, based on medical history and ocular examination, cataract surgery with intraocular lens implant will correct patient's vision and improve quality of patient's daily living activities. Patient wishes to have traditional cataract surgery with basic intraocular lens Left eye. Patient wishes to have cataract surgery with the option stated above. Patient understands that an intraocular lens implant does not necessarily replace the need for glasses. Patient understands that it is impossible for the surgeon to inform him/her of every possible complication that may occur. The surgeon has answered all of the patient's questions. Patient understands that if he/she has a mature or dense cataract, pseudoexfoliation cataract, or history of use of Flomax, he/she may require the use of Maluyugin Ring and/or Vision Blue during surgery. Patient understands the risks, benefits, and alternatives to surgery. Plan Cataract Surgery with Monofocal Intraocular Lens Implant Left Eye on 09/08/2022 at [facility]. Continue: Systane Complete solution instill 1 drop 3 times daily Both Eyes. PHYSICAL EXAM: Vital Signs: Blood pressure 140/86, pulse 73. Respiratory: Normal breath sounds, no wheezing. CARD: Normal heart sounds 1 & 2, normal sinus rhythm. 2. Status post cataract extraction and insertion of intraocular lens of right eye - ICD9: V45.61, V43.1, ICD10: Z98.41, Z96.1 Current Ophthalmic Meds keTORolac (ACULAR) 0.5 % ophthalmic solution Use 1 Drop in the right eye four times daily. prednisoLONE acetate (PRED FORTE) 1 % ophthalmic suspension Use 1 Drop in the right eye four times daily. 3. Lamellar macular hole of left eye - ICD9: 362.54, ICD10: H35.342 Monitor 4. Epiretinal membrane (ERM) of left eye - ICD9: 362.56, ICD10: H35.372 Monitor 5. Essential hypertension - ICD9: 401.9, ICD10: I10 Continue to monitor with primary care physician. 6. 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 Antolin Kwon MD I have confirmed and edited as necessary the relevant ophthalmic history, review of systems, surgical history, and ophthalmological examination findings as obtained by the ophthalmic technical staff. I have seen and examined Ha Steven. I have discussed the examination findings, diagnosis, and treatment options with Ha Steven and/or his family. I have also reviewed and agree with the assessment and plan as stated above and agree with all its relevant components. I gave the patient the opportunity to ask questions about the findings, diagnosis, and treatment options. documented in this encounter [facility] 08-04-2022 Note HNO ID: [id number] Author: Patrick Alves II, OD Service: ? Author Type: STRAIGHT RULING MACHINE OPERATOR Type: Progress Notes Filed: 08/04/2022 9:35 AM Note Text: Assessment and Plan Z98.41, Z96.1 Status post cataract extraction and insertion of intraocular lens of right eye (primary encounter diagnosis) Comment: Healing well. Continue schedule of postoperative medications as directed. Posterior chamber intraocular lens is well positioned and clear. Scheduled for left eye cataract removal. I have confirmed and edited as necessary the relevant ophthalmic history, ROS, and the neuro exam findings as obtained by others. I have seen and examined Ha Steven. I have discussed the case and the management of this patient's care with the Resident/Fellow, if applicable. I also have reviewed and agree with the assessment and plan as stated above and agree with all of its relevant components. Patrick Alves II, OD [facility] 08-04-2022 Instructions Patrick Alves II, OD - 08/04/2022 9:34 AM EDT Assessment and Plan Z98.41, Z96.1 Status post cataract extraction and insertion of intraocular lens of right eye (primary encounter diagnosis) Comment: Healing well. Continue schedule of postoperative medications as directed. Posterior chamber intraocular lens is well positioned and clear. Scheduled for left eye cataract removal. I have confirmed and edited as necessary the relevant ophthalmic history, ROS, and the neuro exam findings as obtained by others. I have seen and examined Ha Villagomez Edmund. I have discussed the case and the management of this patient's care with the Resident/Fellow, if applicable. I also have reviewed and agree with the assessment and plan as stated above and agree with all of its relevant components. Patrick Alves II, OD documented in this encounter [facility] 08-04-2022 History of Present illness Narrative Assessment and Plan Z98.41, Z96.1 Status post cataract extraction and insertion of intraocular lens of right eye (primary encounter diagnosis) Comment: Healing well. Continue schedule of postoperative medications as directed. Posterior chamber intraocular lens is well positioned and clear. Scheduled for left eye cataract removal. I have confirmed and edited as necessary the relevant ophthalmic history, ROS, and the neuro exam findings as obtained by others. I have seen and examined Ha Steven. I have discussed the case and the management of this patient's care with the Resident/Fellow, if applicable. I also have reviewed and agree with the assessment and plan as stated above and agree with all of its relevant components. Patrick Alves II, OD documented in this encounter [facility] 07-29-2022 Note HNO ID: [id number] Author: COLEEN Villarreal Service: ? Author Type: Religion Professor Type: Progress Notes Filed: 07/29/2022 8:54 AM Note Text: ASSESSMENT/PLAN: 1. Status post cataract extraction and insertion of intraocular lens of right eye - ICD9: V45.61, V43.1, ICD10: Z98.41, Z96.1 (primary diagnosis) Use eye medications as directed: Current Ophthalmic Meds keTORolac (ACULAR) 0.5 % ophthalmic solution Use 1 Drop in the right eye four times daily for 7 days then three times daily until 09/01/2022 prednisoLONE acetate (PRED FORTE) 1 % ophthalmic suspension Use 1 Drop in the right eye four times daily for 7 days then three times daily until 09/01/2022 Systane Complete Artificial Tears - Use 1 Drop into both eyes three times a day. Follow up with Dr. Alves for 1 week post op 2. Combined forms of age-related cataract of left eye - ICD9: 366.19, ICD10: H25.812 Upon eye examination, patient was found to have a visually significant cataract left eye 09/08/2022. Discussed cataract surgery with patient and different intraocular lens implant options with patient: basic monofocal intraocular lens implant, Toric intraocular lens implant, and presbyopia correction intraocular lens implant. In my medical opinion, based on medical history and ocular examination, cataract surgery with intraocular lens implant will correct patient's vision and improve quality of patient's daily living activities. Patient wishes to have traditional cataract surgery with basic intraocular lens left eye 09/08/2022. Patient wishes to have cataract surgery with the option stated above. Patient understands that an intraocular lens implant does not necessarily replace the need for glasses. Patient understands that it is impossible for the surgeon to inform him/her of every possible complication that may occur. The surgeon has answered all of the patient's questions. Patient understands that if he/she has a mature or dense cataract, pseudoexfoliation cataract, or history of use of Flomax, he/she may require the use of Maluyugin Ring and/or Vision Blue during surgery. Patient understands the risks, benefits, and alternatives to surgery. Antolin Kwon MD I have confirmed and edited as necessary the relevant ophthalmic history, review of systems, surgical history, and ophthalmological examination findings as obtained by the ophthalmic technical staff. I have seen and examined Ha Steven. I have discussed the examination findings, diagnosis, and treatment options with Ha Steven and/or his family. I have also reviewed and agree with the assessment and plan as stated above and agree with all its relevant components. I gave the patient the opportunity to ask questions about the findings, diagnosis, and treatment options. [facility] 07-29-2022 History of Present illness Narrative ASSESSMENT/PLAN: 1. Status post cataract extraction and insertion of intraocular lens of right eye - ICD9: V45.61, V43.1, ICD10: Z98.41, Z96.1 (primary diagnosis) Use eye medications as directed: Current Ophthalmic Meds keTORolac (ACULAR) 0.5 % ophthalmic solution Use 1 Drop in the right eye four times daily for 7 days then three times daily until 09/01/2022 prednisoLONE acetate (PRED FORTE) 1 % ophthalmic suspension Use 1 Drop in the right eye four times daily for 7 days then three times daily until 09/01/2022 Systane Complete Artificial Tears - Use 1 Drop into both eyes three times a day. Follow up with Dr. Alves for 1 week post op 2. Combined forms of age-related cataract of left eye - ICD9: 366.19, ICD10: H25.812 Upon eye examination, patient was found to have a visually significant cataract left eye 09/08/2022. Discussed cataract surgery with patient and different intraocular lens implant options with patient: basic monofocal intraocular lens implant, Toric intraocular lens implant, and presbyopia correction intraocular lens implant. In my medical opinion, based on medical history and ocular examination, cataract surgery with intraocular lens implant will correct patient's vision and improve quality of patient's daily living activities. Patient wishes to have traditional cataract surgery with basic intraocular lens left eye 09/08/2022. Patient wishes to have cataract surgery with the option stated above. Patient understands that an intraocular lens implant does not necessarily replace the need for glasses. Patient understands that it is impossible for the surgeon to inform him/her of every possible complication that may occur. The surgeon has answered all of the patient's questions. Patient understands that if he/she has a mature or dense cataract, pseudoexfoliation cataract, or history of use of Flomax, he/she may require the use of Maluyugin Ring and/or Vision Blue during surgery. Patient understands the risks, benefits, and alternatives to surgery. Antolin Kwon MD I have confirmed and edited as necessary the relevant ophthalmic history, review of systems, surgical history, and ophthalmological examination findings as obtained by the ophthalmic technical staff. I have seen and examined Ha Steven. I have discussed the examination findings, diagnosis, and treatment options with Ha Steven and/or his family. I have also reviewed and agree with the assessment and plan as stated above and agree with all its relevant components. I gave the patient the opportunity to ask questions about the findings, diagnosis, and treatment options. documented in this encounter [facility] 07-29-2022 Instructions Antolin Kwon MD - 07/29/2022 8:31 AM EDT Use eye medications as directed: Current Ophthalmic Meds keTORolac (ACULAR) 0.5 % ophthalmic solution Use 1 Drop in the right eye four times daily for 7 days then three times daily until 09/01/2022 prednisoLONE acetate (PRED FORTE) 1 % ophthalmic suspension Use 1 Drop in the right eye four times daily for 7 days then three times daily until 09/01/2022 Systane Complete Artificial Tears - Use 1 Drop into both eyes three times a day. If you have any questions please contact our office at [phone]. After office hours or on the weekend, please call Dr. Kwon on his cell phone at [phone]. documented in this encounter [facility] 07-28-2022 Note Post Operative Note: Post-Procedure Diagnosis: 1. Combined Form Age Related Cataract Right Eye Procedure: 1. Cataract Extraction with Intraocular Lens Implant Right Eye Surgeon: Antolin Kwon MD Resident/Fellow/Other Prosthetics Assistant: None Estimated Blood Loss (mL): none Specimen: no Findings: 1. Combined Form Age Related Cataract Right Eye Operative Report Dictated: Dictation: not applicable - note contains Operative Report Operative Report: The patient was correctly identified and the patient's operative eye was marked with a marking pen and verified with the patient in the pre-operative area. The operative eye was dilated in the preoperative area. The patient was then taken to the operating room where timeout was performed before starting the procedure. Combined anesthesia with intravenous sedation and topical tetracaine eyedrops were instilled into the right eye. The operative eye was prepped and draped in the standard sterile ophthalmic fashion in preparation for ophthalmic surgery. A Jeremiah wire speculum was then inserted between the eyelids of the right eye and the operating microscope was placed over the right eye. A paracentesis incision was made approximately 30 away from the planned surgical incision site with the help of MVR blade. 1% lidocaine MPF with Phenylephrine 1.5% PF was injected into the anterior chamber through the paracentesis incision. A near limbal clear corneal incision was fashioned in the temporal quadrant just outside the vascular arcade and Viscoat was injected into anterior chamber to firm the eye. A bent needle cystotome was used and Utrata forceps were utilized to create a continuous curvilinear capsulorrhexis. BSS was injected beneath the anterior capsule to hydrodissect the nucleus from adjacent cortex and capsule. The residual cortex was then aspirated with irrigation/aspiration handpiece. The posterior capsule was then polished with the help of soft irrigation-aspiration tip. Provisc viscoelastic was then injected into the eye to reform the anterior chamber and to open the capsular bag. The intraocular lens implant was taken from its sterile wrapping, inspected under the surgical microscope and found to be in good condition. The intraocular lens implant 21.5D was injected into the capsule bag. The Provisc was then aspirated from the anterior chamber and from behind the intraocular lens implant. The anterior chamber was inflated with the help of BSS to moderate tension. And the edges of the surgical incision were then hydrated with the help of BSS. Vigamox was then injected into the anterior chamber and into the capsule bag through the paracentesis incision. The surgical wound was then inspected and found to be watertight. The wire speculum and drapes were then removed. Pred Forte eyedrops, Acular eyedrops and Betadine 5% sterile ophthalmic solution were instilled in the conjunctival sac. The patient tolerated the procedure well and was taken to recovery room in stable condition. Attestation: Note Completion: Attending AttestationI performed the procedure without a resident Electronic Signatures: Antolin Kwon) (Signed 28-Jul-2022 10:40) Authored: Post Operative Note, Note Completion Last Updated: 28-Jul-2022 10:40 by Antolin Kwon) [facility] 07-28-2022 Note History & Physical R eviewed: I have reviewed the History and Physical dated: 15-Jul-2022 History and Physical reviewed and relevant findings noted. Patient examined to review pertinent physical findings.: No significant changes Home Medications Reviewed: no changes noted Allergies Reviewed: no changes noted ERAS (Enhanced Recovery After Surgery): ERAS Patient: no Consent: COVID-19 Consent: COVID-19 Risk ConsentSurgeon has reviewed hermosillo risks related to the risk of mynor COVID-19 and if they contract COVID-19 what the risks are. Electronic Signatures: Antolin Kwon) (Signed 28-Jul-2022 09:00) Authored: History & Physical Reviewed, ERAS, Consent, Note Completion Last Updated: 28-Jul-2022 09:00 by Antolin Kwon) [facility] 07-15-2022 Note HNO ID: [id number] Author: Antolin Kwon MD Service: ? Author Type: Physician Type: Progress Notes Filed: 07/15/2022 9:16 AM Note Text: ASSESSMENT/PLAN: 1. Combined forms of age-related cataract of right eye - ICD9: 366.19, ICD10: H25.811 (primary diagnosis) Cataract Presurgical Documentation Cataract: Both eyes (OU) Current Visual Acuity Right Eye Distance CC 20/40 Left Eye Distance CC 20/50 Best Corrected Vision Right Eye 20/40 Best Corrected Vision Left Eye 20/50 Glare Testing: Right Eye High 20/80 Visual Function: Ha Steven states that the decline in vision from the cataract impedes his abilities as listed in the HPI, as well as other activities of daily living. Ha Steven has confirmed that he is no longer able to function adequately on a day-to-day basis because of his current visual condition. Further, it is my medical opinion that the cataract is the primary cause, or at least a significantly contributory cause of his visual dysfunction. With uncomplicated cataract surgery and lens implantation, it is my expectation that his visual function and quality of life will improve, significantly. The risks, benefits, alternatives, personnel and complications of cataract surgery with lens implantation were discussed with Ha Steven in detail. he appeared to understand and asked that I proceed with plans for surgery. PHYSICAL EXAM: Vital Signs: Blood pressure 140/86, pulse 73. Respiratory: Normal breath sounds, no wheezing. CARD: Normal heart sounds 1 AND 2, normal sinus rhythm. Continue: Systane Complete Artificial Tears - Use 1 Drop into both eyes three times a day. Upon eye examination, patient was found to have a visually significant cataract both eyes. Discussed cataract surgery with patient and different intraocular lens implant options with patient: basic monofocal intraocular lens implant, Toric intraocular lens implant, and presbyopia correction intraocular lens implant. In my medical opinion, based on medical history and ocular examination, cataract surgery with intraocular lens implant will correct patient's vision and improve quality of patient's daily living activities. Patient wishes to have traditional cataract surgery with basic intraocular lens right eye on July 28, 2022 at [facility]. Patient wishes to have cataract surgery with the option stated above. Patient understands that an intraocular lens implant does not necessarily replace the need for glasses. Patient understands that it is impossible for the surgeon to inform him/her of every possible complication that may occur. The surgeon has answered all of the patient's questions. Patient understands that if he/she has a mature or dense cataract, pseudoexfoliation cataract, or history of use of Flomax, he/she may require the use of Maluyugin Ring and/or Vision Blue during surgery. Patient understands the risks, benefits, and alternatives to surgery. 2. Combined forms of age-related cataract of left eye - ICD9: 366.19, ICD10: H25.812 -will schedule after the right eye is stable. 3. Lamellar macular hole of left eye - ICD9: 362.54, ICD10: H35.342 -stable/ monitor 4. Epiretinal membrane (ERM) of left eye - ICD9: 362.56, ICD10: H35.372 -stable/ monitor 5. Essential hypertension - ICD9: 401.9, ICD10: I10 6. Hx of CABG - ICD9: V45.81, ICD10: Z95.1 -continue care with PCP I have confirmed and edited as necessary the relevant ophthalmic history, review of systems, surgical history, and ophthalmological examination findings as obtained by the ophthalmic technical staff. I have seen and examined Ha Steven. I have discussed the examination findings, diagnosis, and treatment options with Ha Steven and/or his family. I have also reviewed and agree with the assessment and plan as stated above and agree with all its relevant components. I gave the patient the opportunity to ask questions about the findings, diagnosis, and treatment options. Antolin Kwon MD [facility] documented as of this encounter (statuses as of 07/29/2022) [facility]05-05-[facility] History of Past illness Narrative* Problem Noted Date Resolved Date Combined forms of age-related cataract of right eye 07/01/2022 07/29/2022 Combined form of senile cataract of both eyes 07/29/2022 documented as of this encounter (statuses as of 08/04/2022) [facility] History of Past illness Narrative* Problem Noted Date Resolved Date Combined forms of age-related cataract of right eye 07/01/2022 07/29/2022 Combined form of senile cataract of both eyes 07/29/2022 documented as of this encounter (statuses as of 08/31/2022) [facility] History of Past illness Narrative* Problem Noted Date Diagnosed Date Resolved Date Combined forms of age-relate d cataract of right eye 07/01/2022 07/29/2022 Combined form of senile cataract of both eyes 06/20/19 19 07/29/2022 documented as of this encounter (statuses as of 09/15/2022) [facility] History of Past illness Narrative* Problem Noted Date Diagnosed Date Resolved Date Combined forms of age-relate d cataract of right eye 07/01/2022 07/29/2022 Combined form of senile cataract of both eyes 06/20/19 19 07/29/2022 documented as of this encounter (statuses as of 10/06/2022) [facility] NoteHNO ID: [id number] Author: Antolin Kwon MD Service: ? Author Type: Physician Type: Progress Notes Filed: 07/01/2022 10:08 AM Note Text: ASSESSMENT/PLAN: 1. Combined forms of age-related cataract of right eye - ICD9: 366.19, ICD10: H25.811 (primary diagnosis) Cataract Presurgical Documentation Cataract: Both eyes (OU) Current Visual Acuity Right Eye Distance CC 20/40 Left Eye Distance CC 20/50 Glare Testing: Right Eye Medium 20/80 Left Eye Medium 20/80 Visual Function: Ha Steven states that the decline in vision from the cataract impedes his abilities as listed in the HPI, as well as other activities of daily living. Ha Steven has confirmed that he is no longer able to function adequately on a day-to-day basis because of his current visual condition. Further, it is my medical opinion that the cataract is the primary cause, or at least a significantly contributory cause of his visual dysfunction. With uncomplicated cataract surgery and lens implantation, it is my expectation that his visual function and quality of life will improve, significantly. The risks, benefits, alternatives, personnel and complications of cataract surgery with lens implantation were discussed with Ha Steven in detail. he appeared to understand and asked that I proceed with plans for surgery. PHYSICAL EXAM: Vital Signs: Blood pressure 140/86, pulse 73. Respiratory: Normal breath sounds, no wheezing. CARD: Normal heart sounds 1 AND 2, normal sinus rhythm. Continue: Systane Complete Artificial Tears - Use 1 Drop into both eyes three times a day. Upon eye examination, patient was found to have a visually significant cataract both eyes. Discussed cataract surgery with patient and different intraocular lens implant options with patient: basic monofocal intraocular lens implant, Toric intraocular lens implant, and presbyopia correction intraocular lens implant. In my medical opinion, based on medical history and ocular examination, cataract surgery with intraocular lens implant will correct patient's vision and improve quality of patient's daily living activities. Patient wishes to have traditional cataract surgery with basic intraocular lens right eye on July 28, 2022 at [facility]. Patient wishes to have cataract surgery with the option stated above. Patient understands that an intraocular lens implant does not necessarily replace the need for glasses. Patient understands that it is impossible for the surgeon to inform him/her of every possible complication that may occur. The surgeon has answered all of the patient's questions. Patient understands that if he/she has a mature or dense cataract, pseudoexfoliation cataract, or history of use of Flomax, he/she may require the use of Maluyugin Ring and/or Vision Blue during surgery. Patient understands the risks, benefits, and alternatives to surgery. 2. Combined forms of age-related cataract of left eye - ICD9: 366.19, ICD10: H25.812 -will schedule after the right eye is stable. 3. Lamellar macular hole of left eye - ICD9: 362.54, ICD10: H35.342 -stable/ monitor 4. Epiretinal membrane (ERM) of left eye - ICD9: 362.56, ICD10: H35.372 -stable/ monitor 5. Essential hypertension - ICD9: 401.9, ICD10: I10 6. Hx of CABG - ICD9: V45.81, ICD10: Z95.1 -continue care with PCP I have confirmed and edited as necessary the relevant ophthalmic history, review of systems, surgical history, and ophthalmological examination findings as obtained by the ophthalmic technical staff. I have seen and examined Ha Steven. I have discussed the examination findings, diagnosis, and treatment options with Ha Steven and/or his family. I have also reviewed and agree with the assessment and plan as stated above and agree with all its relevant components. I gave the patient the opportunity to ask questions about the findings, diagnosis, and treatment options. Antolin Kwon [facility]05-05-2023 History of Present illness Narrative* Antolin Kwon MD - 07/01/2022 10:03 AM EDT ASSESSMENT/PLAN: 1. Combined forms of age-related cataract of right eye - ICD9: 366.19, ICD10: H25.811 (primary diagnosis) Cataract Presurgical Documentation Cataract: Both eyes (OU) Current Visual Acuity Right Eye Distance CC 20/40 Left Eye Distance CC 20/50 Glare Testing: Right Eye Medium 20/80 Left Eye Medium 20/80 Visual Function: Ha Steven states that the decline in vision from the cataract impedes his abilities as listed in the HPI, as well as other activities of daily living. Ha Steven has confirmed that he is no longer able to function adequately on a day-to-day basis because of his current visual condition. Further, it is my medical opinion that the cataract is the primary cause, or at least a significantly contributory cause of his visual dysfunction. With uncomplicated cataract surgery and lens implantation, it is my expectation that his visual function and quality of life will improve, significantly. The risks, benefits, alternatives, personnel and complications of cataract surgery with lens implantation were discussed with Ha Steven in detail. he appeared to understand and asked that I proceed with plans for surgery. PHYSICAL EXAM: Vital Signs: Blood pressure 140/86, pulse 73. Respiratory: Normal breath sounds, no wheezing. CARD: Normal heart sounds 1 & 2, normal sinus rhythm. Continue: Systane Complete Artificial Tears - Use 1 Drop into both eyes three times a day. Upon eye examination, patient was found to have a visually significant cataract both eyes. Discussed cataract surgery with patient and different intraocular lens implant options with patient: basic monofocal intraocular lens implant, Toric intraocular lens implant, and presbyopia correction intraocular lens implant. In my medical opinion, based on medical history and ocular examination, cataract surgery with intraocular lens implant will correct patient's vision and improve quality of patient'sdaily living activities. Patient wishes to have traditional cataract surgery with basic intraocularlens right eye on July 28, 2022 at [facility]. Patient wishes to have cataract surgery with the option stated above. Patient understands that an intraocular lens implant does not necessarily replace the need for glasses. Patient understands that it is impossible forthe surgeon to inform him/her of every possible complication that may occur. The surgeon has answered all of the patient's questions. Patient understands that if he/she has a mature or dense cataract, pseudoexfoliation cataract, or history of use of Flomax, he/she may require the use of Maluyugin Ring and/or Vision Blue during surgery. Patient understands the risks, benefits, and alternatives to surgery. 2. Combined forms of age-related cataract of left eye - ICD9: 366.19, ICD10: H25.812 -will schedule after the right eye is stable. 3. Lamellar macular hole of left eye - ICD9: 362.54, ICD10: H35.342 -stable/ monitor 4. Epiretinal membrane (ERM) of left eye - ICD9: 362.56, ICD10: H35.372 -stable/ monitor 5. Essential hypertension - ICD9: 401.9, ICD10: I10 6. Hx of CABG - ICD9: V45.81, ICD10: Z95.1 -continue care with PCP I have confirmed and edited as necessary the relevant ophthalmic history, review of systems, surgical history, and ophthalmological examination findings as obtained by the ophthalmic technical staff.I have seen and examined Ha Steven. I have discussed the examination findings, diagnosis, and treatment options with Ha Steven and/or his family. I have also reviewed and agree with the assessment and plan as stated above and agree with all its relevant components. I gave the patient the opportunity to ask questions about the findings, diagnosis, and treatment options. Antolin Kwon MD [facility] Instructions* Patient Instructions* Antolin Kwon MD - 07/01/2022 9:15 AM EDT Continue: Systane Complete Artificial Tears - Use 1 Drop into both eyes three times a day. See Dr. Fide Gudino for physical clearance, EKG and basic metabolic panel If you have any questions please contact our office at [phone]. After office hours or on the weekend, please call Dr. Kwon on his cell phone at [phone]. documented [facility]04[facility]23 NoteHNO ID: [id number] Author: Patrick Alves II, OD Service: ? 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 Update glasses as desired to maximize visual performance. Continue monitoring cataracts and retinal with Dr. Kwon as instructed. I have confirmed and edited as necessary the relevant ophthalmic history, ROS, and the neuro exam findings as obtained by others. I have seen and examined Ha Steven. I have discussed the case and the management of this patient's care with the Resident/Fellow, if applicable. I also have reviewed and agree with the assessment and plan as stated above and agree with all of its relevant components. Patrick Alves II, [facility]03-06-2023 NoteHNO ID: [id number] Author: Antolin Kwon MD Service: ? Author Type: Physician Type: Progress Notes Filed: 05/02/2022 11:16 AM Note Text: ASSESSMENT/PLAN: 1. Lamellar macular hole of left eye - ICD9: 362.54, ICD10: H35.342 (primary diagnosis) - FUNDUS PHOTOS OU (BOTH EYES) Monitor for progression Left Eye. 2. Combined forms of age-related cataract of both eyes - ICD9: 366.19, ICD10: H25.[address] Alves for refraction and glasses. 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 Antolin Kwon MD I have confirmed and edited as necessary the relevant ophthalmic history, review of systems, surgical history, and ophthalmological examination findings as obtained by the ophthalmic technical staff. I have seen and examined Ha Steven. I have discussed the examination findings, diagnosis, and treatment options with Ha Steven and/or his family. I have also reviewed and agree with the assessment and plan as stated above and agree with all its relevant components. I gave the patient the opportunity to ask questions about the findings, diagnosis, and treatment options.[facility]03-06-2023 Instructions* Patient Instructions * Antolin Kwon MD - 05/02/2022 11:15 AM EST If you have any questions please contact our office at [phone]. After office hours or on the weekend, please call Dr. Kwon on his cell phone at [phone]. documented in this encounterProv[facility]03-[facility]23 History of Present illness Narrative* Antolin Kwon MD - 05/02/2022 11:14 AM EST ASSESSMENT/PLAN: 1. Lamellar macular hole of left eye - ICD9: 362.54, ICD10: H35.342 (primary diagnosis) - FUNDUS PHOTOS OU (BOTH EYES) Monitor for progression Left Eye. 2. Combined forms of age-related cataract of both eyes - ICD9: 366.19, ICD10: H25.[address] Alves for refraction and glasses. 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 Antolin Kwon MD I have confirmed and edited as necessary the relevant ophthalmic history, review of systems, surgical history, and ophthalmological examination findings as obtained by the ophthalmic technical staff.I have seen and examined Ha Steven. I have discussed the examination findings, diagnosis, and treatment options with Ha Steven and/or his family. I have also reviewed and agree with the assessment and plan as stated above and agree with all its relevant components. I gave the patient the opportunity to ask questions about the findings, diagnosis, and treatment options. 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 [facility]* Diagnosis Combined forms of age-related cataract of right eye- Primary Other and combined forms of senile cataract Combined forms of age-related cataract of left eye Other and combined forms of senile cataract Lamellar macular hole of left eye Macular cyst, hole, or pseudohole of retina Epiretinal membrane (ERM) of left eye Essential hypertension Unspecified essential hypertension Hx of CABG Postsurgical aortocoronary bypass status Combined form of age-related cataract, right eye [facility]* Diagnosis Status post cataract extraction and insertion of intraocular lens of right eye- Primary Combined forms of age-related cataract of left eye Other and combined forms of senile cataract Combined form of age-related cataract, left eye [facility]* Diagnosis Status post cataract extraction and insertion of intraocular lens of right eye- Primary Combined form of age-related cataract, left eye [facility]* Diagnosis Combined forms of age-related cataract of left eye- Primary Other and combined forms of senile cataract Status post cataract extraction and insertion of intraocular lens of right eye Lamellar macular hole of left eye Macular cyst, hole, or pseudohole of retina Epiretinal membrane (ERM) of left eye Essential hypertension Unspecified essential hypertension Hx of CABG Postsurgical aortocoronary bypass status Combined form of age-related cataract, left eye documented [facility]* Diagnosis Status post cataract extraction and insertion of intraocular lens of left eye- Primary Status post cataract extraction and insertion of intraocular lens of right eye [facility] encounter [facility]* Diagnosis Status post cataract extraction and insertion of intraocular lens of left eye- Primary Status post cataract extraction and insertion of intraocular lens of right eye Lamellar macular hole of left eye Macular cyst, hole, or pseudohole of retina Epiretinal membrane (ERM) of left eye documented [facility] encounter [facility]* Diagnosis Lamellar macular hole of left eye- Primary Macular cyst, hole, or pseudohole of retina Epiretinal membrane (ERM) of left eye documented [facility] encounter [facility]* Diagnosis Combined forms of age-related cataract, left eye Allergy status to penicillin documented in this encounter [facility] Work Phone: Medications Administered Section Active Administered Medications - up to 3 most recent administrations Medication Order MAR Action Action Date Dose Rate Site fluorescein-benoxinate 0.25-0.4 % 1 Drop (FLURESS) 1 Drop, BOTH EYES, DIRECTED, Starting on Mon05/02/22 at 1030, Until Mon05/02/22 at 2229, Administer for applanation tonometry. In the event of a Fluress shortage, administer Garfield-Fluor 1 drop into both eyes as directed for applanation tonometry Given 05/02/2022 10:30 AM EST 1 Drop PHENYLephrine 2.5 % 1 Drop (AK-DILATE, EUFEMIA-SYNEPHRINE) 1 Drop, BOTH EYES, DIRECTED, Starting on Mon05/02/22 at 1030, Until Mon05/02/22 at 2229, Administer for dilation PROTECT FROM LIGHT Given 05/02/2022 10:30 AM EST 1 Drop proparacaine 0.5 % 1 Drop (ALCAINE) 1 Drop, BOTH EYES, DIRECTED, Starting on Mon05/02/22 at 1030, Until Mon05/02/22 at 2229, Administer for pneumo tonometry, tonopen tonometry, or pachymetry. In the event of a proparacaine shortage, administer tetracaine 0.5% ophthalmic drops 1 drop in the left eye as directed for pneumo tonometry, tonopen tonometry, or pachymetry Given 05/02/2022 10:30 AM EST 1 Drop tropicamide 1 % 1 Drop (MYDRIACYL) 1 Drop, BOTH EYES, DIRECTED, Starting on Mon05/02/22 at 1030, Until Mon05/02/22 at 2229, Administer for dilation Given 05/02/2022 10:30 AM EST 1 Drop Summary Purpose Family History No Family History Records FoundNo Family History Records Found Advance Directives No Advanced Directives Records FoundNo Advanced Directives Records Found Additional Source Comments Source Comments (unrecognize d section and content) In the event this informatio n is protected by the Federal Confidentiality of Alcohol and Drug Abuse Patient Records regulations: The Federal rules restrict any use of the information to criminally investigate or prosecute any alcohol or drug abuse patient.[facility] HospitalIn the event this information is protected by the Federal Confidentiality of Alcohol and Drug Abuse Patient Records regulations: The Federal rules restrict any use of the information to criminally investigate or prosecute any alcohol or drug abuse patient.[facility] HospitalIn the event this information is protected by the Federal Confidentiality of Alcohol and Drug Abuse Patient Records regulations: The Federal rules restrict any use of the information to criminally investigate or prosecute any alcohol or drug abuse patient.[facility] HospitalIn the event this information is protected by the Federal Confidentiality of Alcohol and Drug Abuse Patient Records regulations: The Federal rules restrict any use of the information to criminally investigate or prosecute any alcohol or drug abuse patient.[facility] HospitalIn the event this information is protected by the Federal Confidentiality of Alcohol and Drug Abuse Patient Records regulations: The Federal rules restrict any use of the information to criminally investigate or prosecute any alcohol or drug abuse patient.[facility] HospitalIn the event this information is protected by the Federal Confidentiality of Alcohol and Drug Abuse Patient Records regulations: The Federal rules restrict any use of the information to criminally investigate or prosecute any alcohol or drug abuse patient.[facility] HospitalIn the event this information is protected by the Federal Confidentiality of Alcohol and Drug Abuse Patient Records regulations: The Federal rules restrict any use of the information to criminally investigate or prosecute any alcohol or drug abuse patient.[facility] HospitalIn the event this information is protected by the Federal Confidentiality of Alcohol and Drug Abuse Patient Records regulations: The Federal rules restrict any use of the information to criminally investigate or prosecute any alcohol or drug abuse patient.[facility] Reason for Visit (unrecogniz ed section and content) Reason Comments Blurred Vision Both Eyes Several years Difficulty Reading Both Eyes Several yea rs Halos Both Eyes Glare Few years Reason Comments Post-op Cataract OD Status Post Cataract Surgery with Intraocular lens right eye (07-28-2022) Reason Comments Post-op Cataract OD Status Post Cataract Surgery with Monofocal Intraocular Lens Implant Right Eye (07/28/2022) Blurred Vision Left Eye Difficulty Reading Left Eye Glare Left Eye Reason Comments Blurred Vision Left Eye Difficulty Reading Left Eye Glare Left Eye Reason Comments Post-op Cataract Left eye- 09/08/2022 Right eye- 07/28/2022 Reason Comments Post-op Cataract Left eye- 09/08/2022 Right eye- 07/28/2022 Reason Comments Epiretinal Membrane Evaluation Left eye Post-op Cataract OS 09/08/22 Post-op Cataract OD 07/28/22 Reason Comments Other Combined forms of ag e-related cataract, left eye Care Teams (unrecognized sec tion and content) Medical Authorization Specialist Relationship Specialty Start Date End Date Kale Griffin Chi PCP - General Gerontology 07/07/16 Medical Authorization Specialist Relationship Specialty Start Date End Date Kale Griffin Chi PCP - General Gerontology 07/07/16 Medical Authorization Specialist Relationship Specialty Start Date End Date Kale Griffin Chi PCP - General Gerontology 07/07/16 Medical Authorization Specialist Relationship Specialty Start Date End Date Kale Griffin Chi PCP - General Gerontology 07/07/16 Medical Authorization Specialist Relationship Specialty Start Date End Date Kale Griffin Chi PCP - General Gerontology 07/07/16 Medical Authorization Specialist Relationship Specialty Start Date End Date Soham Griffin MD [address] [address] [address] PCP - General 07/28/22 (unrecognized sect ion and content) No Status Records FoundNo Status Records Found INFORMATION SOURCE (unrecogn ized section and content) DATE CREATED AUTHOR AUTHOR'S RASHAD WINTERS 10/06/2022 [facility] FOR RECORDS PERTAINING TO PATIENTS WHO ARE OR HAVE BEEN ENROLLED IN A CHEMICAL DEPENDENCY/SUBSTANCEABUSE PROGRAM, SOME INFORMATION MAY BE OMITTED. This clinical summary was aggregated from multiple sources. Caution should be exercised in using it in the provision of clinical care. This summary normalizes information from multiple sources, and as a consequence, information in this document may materially change the coding, format and clinical context of patient data. In addition, data may be omitted in some cases. CLINICAL DECISIONS SHOULD BE BASED ON THE PRIMARY CLINICAL RECORDS. [employer] provides no warranty or guarantee of the accuracy or completeness of information in this document.
[2023-04-19 10:54] LABS: Absolute Lymphocyte Count 1.78 X10^3/uL (0.83-4.51); Absolute Neutrophil Count 4.4 X10^3/uL (2.0-7.7); Basophil# 0.04 X10^3/uL; Basophil% 0.6 % (0-1); Eosinophil# 0.14 X10^3/uL; Eosinophils% 2.1 % (0-5); Hematocrit 46.9 % (40-54); Lymphocyte # 1.78 X10^3/ul (0.83-4.51); Lymphocyte % 26.1 % (19-41); Mean Corpuscular Hgb 31.2 pg (27.0-32.0); Mean Corpuscular Volume 97.5 fL (80-94); Monocyte# 0.45 X10^3/uL; Monocyte% 6.6 % (0-10); NRBC Flagged by Analyzer 0 % (0-5); Neutrophil # 4.39 X10^3/uL (2.7-7.7); Neutrophil % 64.5 % (47-70); Platelet Count 226 K/mm3 (150-450); RBC Distribution Width CV 13.9 % (11.6-14.6); RBC Distribution Width SD 50.3 fl (35.1-43.9); Red Blood Count 4.81 M/mm3 (4.6-6.2); White Blood Count 6.8 K/mm3 (4.4-11.0)
[2023-04-19 11:08] LABS: Vitamin D,25 Hydroxy 20.6 ng/mL
[2023-04-19 11:19] LABS: ALB/GLOB Ratio 0.8 RATIO (0.9-2.4); AST(SGOT) 31 U/L (15-37); Alanine Aminotransfer ALT/SGPT 43 U/L (16-61); Albumin, Serum 3.3 g/dL (3.2-5.0); Alkaline Phosphatase 79 U/L (45-117); Anion Gap 3 (5-15); BUN 20 mg/dL (7-18); Chloride 108 mmol/L (98-107); Creatinine, Serum 1.54 mg/dL (0.70-1.30); EST Glomerular Filtration Rate 46 mL/min (>60); Est Glom Filt Rate - Afr Amer 56 mL/min (>60); Globulin 4.3 g/dL (2.2-4.2); Glucose 145 mg/dL (74-106); Phosphorus 2.5 mg/dL (2.5-4.9); Potassium 4.3 mmol/L (3.5-5.1); Protein, Total 7.6 g/dL (6.4-8.2); Sodium Level 139 mmol/L (136-145); Thyroid Stim Hormone (TSH) 4.77 uIU/mL (0.358-3.74)
== END | disposition home or self-care (01) ==
LOC: POLAB3 09:19
PROVIDERS: PCP Family Medicine Geriatric Medicine; Visit Provider Internal Medicine Nephrology
DX: I12.9 Hypertensive chronic kidney disease with stage 1 through stage 4 chronic kidney disease, or unspecified chronic kidney disease (principal); N18.32 Chronic kidney disease, stage 3b; E55.9 Vitamin D deficiency, unspecified; M10.9 Gout, unspecified
CPT/HCPCS: 36415; 80053; 82306; 84100; 84443; 84550; 85025

== ENCOUNTER → 2023-09-01 | Outpatient (CLI) | payer MEDICARE, OTHER, SELFPAY ==
[2023-09-01 12:10] LABS: Absolute Lymphocyte Count 1.93 X10^3/uL (0.83-4.51); Absolute Neutrophil Count 4.4 X10^3/uL (2.0-7.7); Basophil# 0.03 X10^3/uL; Basophil% 0.4 % (0-1); Eosinophil# 0.05 X10^3/uL; Eosinophils% 0.7 % (0-5); Hematocrit 45.2 % (40-54); Hemoglobin 14.6 g/dL (13.0-16.5); Lymphocyte # 1.93 X10^3/ul (0.83-4.51); Lymphocyte % 26.5 % (19-41); Mean Corp Hgb Conc 32.3 g/dL (32-36); Mean Corpuscular Hgb 31.2 pg (27.0-32.0); Mean Corpuscular Volume 96.6 fL (80-94); Mean Platelet Vol. 9.8 fl (6.2-12.0); Monocyte# 0.79 X10^3/uL; Monocyte% 10.9 % (0-10); NRBC Flagged by Analyzer 0 % (0-5); Neutrophil # 4.44 X10^3/uL (2.7-7.7); Neutrophil % 61.1 % (47-70); Platelet Count 226 K/mm3 (150-450); RBC Distribution Width CV 14.1 % (11.6-14.6); RBC Distribution Width SD 50.3 fl (35.1-43.9); Red Blood Count 4.68 M/mm3 (4.6-6.2); White Blood Count 7.3 K/mm3 (4.4-11.0)
[2023-09-01 12:30] LABS: ALB/GLOB Ratio 0.8 RATIO (0.9-2.4); AST(SGOT) 28 U/L (15-37); Alanine Aminotransfer ALT/SGPT 33 U/L (16-61); Albumin, Serum 3.3 g/dL (3.2-5.0); Alkaline Phosphatase 77 U/L (45-117); Anion Gap 5 (5-15); BUN 19 mg/dL (7-18); Chloride 108 mmol/L (98-107); Creatinine, Serum 1.36 mg/dL (0.70-1.30); EST Glomerular Filtration Rate 53 mL/min (>60); Est Glom Filt Rate - Afr Amer 64 mL/min (>60); Globulin 4.1 g/dL (2.2-4.2); Glucose 101 mg/dL (74-106); PSA,Total - Annual Screen 2.13 ng/mL (0.00-4.00); Potassium 4.7 mmol/L (3.5-5.1); Protein, Total 7.4 g/dL (6.4-8.2); Sodium Level 139 mmol/L (136-145); T4 Free Direct 0.71 ng/dL (0.76-1.46); Thyroid Stim Hormone (TSH) 3.89 uIU/mL (0.358-3.74)
[2023-09-01 14:06] LABS: Cholesterol 161 mg/dL (200); High Density Lipoprotein 32 mg/dL; Triglycerides 105 mg/dL; Very Low Density Lipoprotein 21 mg/dL (5-40)
== END | disposition home or self-care (01) ==
LOC: BIMLAB 10:53
PROVIDERS: PCP Internal Medicine; Referring Provider Internal Medicine; Visit Provider Internal Medicine
DX: I10 Essential (primary) hypertension (principal); Z12.5 Encounter for screening for malignant neoplasm of prostate
CPT/HCPCS: 36415; 80053; 80061; 84153; 84439; 84443; 85025; G0103

== ENCOUNTER 2024-03-27 01:10 | Emergency (ER) | payer MEDICARE, OTHER, SELFPAY ==
[2024-03-27 01:13] VITALS: BP 158/82; PULSE 108; RESP 19; TEMP 38.1; O2SAT 91; BMI 32.3
--- NOTE | 2024-03-27 01:41 | RAD_ITS ---
PROCEDURE: CHEST 1 VIEW (PORTABLE) REASON FOR EXAM: Fever. Confusion. TECHNIQUE: Single frontal image including the chest. COMPARISON: None. FINDINGS: Intermediate lung volumes. Trace atelectasis within the lung bases. No focal airspace consolidation , pneumothorax or pleural effusion is seen. Heart size is within normal limits. Tortuosity involving the thoracic aorta. Vas cular calcifications within the aortic arch. The osseous thorax appears intact. Evidence of prior sternotomy. Spondylotic change involving the t horacic spine. Suture anchors within the right humeral head. Degenerative change involving the bilateral shoulders. EKG w ires overlie the chest. RAD/Chest 1 View (Portable) IMPRESSION: No acute cardiopulmonary process identified. Postsurgical changes, as detailed above Reading Location: [id number]
[2024-03-27 02:01] LABS: Absolute Lymphocyte Count 0.66 X10^3/uL (0.83-4.51); Absolute Neutrophil Count 6.4 X10^3/uL (2.0-7.7); Basophil# 0.02 X10^3/uL; Basophil% 0.2 % (0-1); Eosinophil# 0.06 X10^3/uL; Eosinophils% 0.7 % (0-5); Hematocrit 45.9 % (40-54); Hemoglobin 15.3 g/dL (13.0-16.5); Lymphocyte # 0.66 X10^3/ul (0.83-4.51); Mean Corp Hgb Conc 33.3 g/dL (32-36); Mean Corpuscular Hgb 31.4 pg (27.0-32.0); Mean Corpuscular Volume 94.3 fL (80-94); Mean Platelet Vol. 9.5 fl (6.2-12.0); Monocyte# 1.13 X10^3/uL; Monocyte% 13.6 % (0-10); NRBC Flagged by Analyzer 0 % (0-5); Neutrophil % 77.1 % (47-70); Platelet Count 195 K/mm3 (150-450); RBC Distribution Width CV 13.9 % (11.6-14.6); RBC Distribution Width SD 48.2 fl (35.1-43.9); Red Blood Count 4.87 M/mm3 (4.6-6.2); White Blood Count 8.3 K/mm3 (4.4-11.0)
[2024-03-27] MEDS: 0.9% Normal Saline (1000mL) 1,000 ML 999 ML IV (02:08)
[2024-03-27] MEDS: Acetaminophen 500 MG Tablet 1000 MG PO (02:08)
[2024-03-27 02:10] VITALS: BP 124/82; PULSE 95; RESP 16; O2SAT 92
[2024-03-27 02:17] VITALS: BP 136/55; PULSE 80; RESP 18; TEMP 37.1; O2SAT 95
[2024-03-27 02:40] LABS: Anion Gap 7 (5-15); BUN 21 mg/dL (7-18); BUN/Creat Ratio 13.8 RATIO (10-20); Calcium,Total 9.5 mg/dL (8.5-10.1); Chloride 106 mmol/L (98-107); Creatinine, Serum 1.52 mg/dL (0.70-1.30); EST Glomerular Filtration Rate 47 mL/min (>60); Est Glom Filt Rate - Afr Amer 57 mL/min (>60); Estimated Creatinine Clearance 36.33 ml/min; Glucose 118 mg/dL (74-106); Magnesium 2.2 mg/dL (1.6-2.6); Sodium Level 138 mmol/L (136-145)
[2024-03-27 02:46] LABS: Bacteria 0 SEEN /hpf (None Seen); Mucous, Urine 0 SEEN /hpf (<or=2+); Red Blood Cells-Urine 0 SEEN /hpf (0-5); Squamous Epithelial Cells - UA 0 SEEN /hpf (0-5); White Blood Cells 0 SEEN /hpf (0-5)
[2024-03-27 02:50] LABS: Color, Urine Yellow (Yellow); Glucose, Dipstick Normal (Normal); Ketone-Dipstick Negative (Negative); Leukocyte Esterase-Dipstick 25 /ul (Negative); Nitrite-Dipstick Negative (Negative); Occult Blood-Urine 25 /ul (Negative); Protein-Dipstick 15 mg/dl (Negative); Urine Bilirubin Dipstick Negative (Negative); Urine Clarity Clear (Clear); Urine Urobilinogen Normal (Normal); Urine pH 6.5 (5.0 - 8.0)
[2024-03-27 03:00] VITALS: BP 133/59; PULSE 85; RESP 18; TEMP 37.1; O2SAT 92
[2024-03-27 04:00] VITALS: BP 122/63; PULSE 84; RESP 16; O2SAT 95
--- NOTE | 2024-03-27 04:22 | EDS_ITS ---
HPI History of Present Illness Chief Complaint: Confusion Informant: patient, spouse/S.O. and family Narrative Narrative: Patient is 83-year-old male with past medical history of hypertension hyperlipidemia and obstructive sleep apnea. Daughter states that she stays with her parents in order to help care for them. She states this evening he could no longer walk at his baseline and it took multiple hours to get him up off the toilet. She states that he does not drink water like he supposed to. She states the last time he presented like this with increased weakness he had dehydration. The nursing note reports confusion but patient is awake and alert and oriented upon arrival and admits to congestion and cough but denies any known sick contacts [facility] Medical History Bilateral lower extremity edema Hyperlipidemia Health care maintenance MONALISA (obstructive sleep apnea) Uses continuous positive airway pressure (CPAP) ventilation at home Decreased hearing Carpal tunnel syndrome Back problem Acidosis, lactic Fall from bed, initial encounter Generalized weakness Fever History of left heart catheterization (LHC) (~02/13/12) Atherosclerosis of coronary artery bypass graft without angina pectoris Pure hypercholesterolemia Essential hypertension Hypertension Atherosclerotic heart disease of [place] coronary artery without angina pectoris Home Medications ?Medication ?Instructions ?Recorded ?Last Taken ?Type aspirin 81 mg tablet,delayed 81 mg PO DAILY PRN heart health 01/26/23 Unknown History release (Adult Low Dose Aspirin) nitroglycerin 0.4 mg sublingual 0.4 mg sublingual Q5-15M PRN chest 12/08/23 Unknown Rx tablet (Nitrostat) pain #25 tabs Allergy/AdvReac Type Severity Reaction Status Date / Time erythromycin base Allergy Rash Verified 03/27/24 01:18 Penicillins (PCN) Allergy Rash Verified 03/27/24 01:18 oxycodone HCl (From Percocet) AdvReac Other Verified 03/27/24 01:18 Family History Father CVA (cerebral vascular accident) Surgical History History of hip surgery History of coronary artery bypass surgery (~04/12/02) History of appendectomy History of back surgery History of hernia repair History of shoulder surgery H/O coronary artery bypass surgery Social History household members: spouse housing: house current occupational status: retired Smoking Status: Former smoker alcohol intake: never substance use type: does not use caffeine: Yes Type: carbonated beverages eating out: other what type of physical activity do you participate in: none seatbelt use: always do you feel safe at home: Yes ROS ROS ED Constitutional Constitutional ED: Denies chills or fever(s) ENT ENT ED: Reports rhinorrhea and sore throat Cardiovascular Cardiovascular: Denies chest pain Respiratory/Chest Respiratory/Chest: Reports cough; Denies dyspnea Gastrointestinal Gastrointestinal: Denies abdominal pain, diarrhea, nausea or vomiting Genitourinary Genitourinary ED: Reports urinary frequency; Denies dysuria Musculoskeletal Musculoskeletal: Reports myalgias Integumentary Denies rash Neurologic Neurologic: Reports weakness; Denies headache(s) or paresthesias Hematologic/Lymphatic Hematologic/Lymphatic: Denies easy bleeding or easy bruising Allergic/Immunologic Allergic/Immunologic ED: Denies mouth swelling or tongue swelling EXAM Physical Exam Const Vital Signs: 03/27/24 01:13 03/27/24 02:10 03/27/24 02:17 Temperature 100.5 F H 98.8 F Temperature Source Oral Oral Pulse Rate 108 H 95 80 Respiratory Rate 19 H 16 18 Blood Pressure 158/82 H 124/82 H 136/55 H Blood Pressure Mean 107 96 82 Pulse Ox 91 92 95 Oxygen Delivery Method Room Air Room Air Room Air 03/27/24 03:00 03/27/24 04:00 03/27/24 04:23 Temperature 98.8 F 98.8 F Temperature Source Oral Pulse Rate 85 84 85 Respiratory Rate 18 16 16 Blood Pressure 133/59 H 122/63 H 133/62 H Blood Pressure Mean 83 82 85 Pulse Ox 92 95 92 Oxygen Delivery Method Room Air Room Air Positive well nourished, well developed and obese General Appearance ED: well developed; Negative for pallor Nutritional Appearance: obese HEENT Reports dry mucous membranes HEENT Narrative: Nasal mucosa is hyperemic and boggy There is cobblestoning the posterior pharynx consistent with sinus drainage without airway edema or compromise; no secondary findings to suggest infection Mucous membranes are dry and tacky Mouth ED: Yes dry mucous membranes Mouth: dry mucous membranes Eyes PERRL and EOMs intact bilaterally General Eye ED: Negative for pale conjunctiva or scleral icterus Neck supple and no JVD Neck Narrative: No nuchal rigidity or meningeal sign Resp normal respiratory effort Resp Narrative: Breath sounds are diminished throughout with faint rhonchi noted in the bilateral lobes but otherwise no nasal flaring retractions tachypnea or accessory muscle use Cardio regular rhythm Rate: tachycardic and other Other Details: Tachycardic rate with regular rhythm Radial and carotid pulses are equal and symmetric GI normal to inspection, nondistended, normoactive bowel sounds, non-tender, non- distended and no masses Auscultation: normoactive bowel sounds Palpation: soft Extremity normal to inspection Neuro oriented x3, CN's II-XII intact bilaterally and no sensory deficits noted Neuro Narrative: Patient is awake alert and oriented to person place and time GCS of 15 Cranial nerves II through XII are grossly intact without focal neurologic deficit Patient is able to lift arms and legs without difficulty Weakness is generalized without focal finding No pronator drift no dysmetria no truncal ataxia NIH stroke scale score of 0 Sensorium / Orientation: alert Psych mental status grossly normal Skin no rashes or lesions noted and No skin turgor normal Skin Narrative: Skin turgor is increased General Skin Exam: Negative for jaundice or pallor MDM MDM MDM Narrative Medical decision making narrative: Patient presented to the ER febrile and tachycardic associated with this. He did not have any findings or report of confusion upon my evaluation but only complained of cough and congestion. With his low-grade fever and cough there is concern for pneumonia versus viral infection such as COVID or influenza or RSV. With report that he has not been drinking properly and has been weak with dehydration in the past there is concern for this as well as acute kidney injury or severe electrolyte abnormality. Patient also reported increased urinary frequency and there is concern potential UTI. Workup revealed mild elevation to his kidney function without significant electrolyte abnormalities and he did not have acute blood loss anemia or leukocytosis or left shift. Urine sample showed no sign of infection and chest x-ray revealed no acute lung pathology. Patient was positive for influenza A which correlates with his symptoms. He is not hypoxic he is not in respiratory distress he is not requiring supplemental oxygen. With IV hydration and antipyretic medication his vitals improved and his weakness resolved and he can ambulate with a steady gait and therefore there is no need for further workup and he is otherwise safe for discharge History & Record Review Discussion w/independent historian: Patient and Family Lab Data Attestation: I reviewed the patient's lab results. Labs: Laboratory Results - last 24 hr 03/27/24 03/27/24 01:49 02:40 WBC 8.3 RBC 4.87 Hgb 15.3 Hct 45.9 MCV 94.3 H MCH 31.4 MCHC 33.3 RDW Std Deviation 48.2 H RDW Coeff of [place] 13.9 Plt Count 195 MPV 9.5 Immature Gran % (Auto) 0.400 Neut % (Auto) 77.1 H Lymph % (Auto) 8.0 L [place] % (Auto) 13.6 H Eos % (Auto) 0.7 Baso % (Auto) 0.2 Absolute Neuts (auto) 6.4 Absolute Lymphs (auto) 0.66 L Nucleated RBC % 0 Sodium 138 Potassium 4.0 Chloride 106 Carbon Dioxide 25.0 Anion Gap 7 BUN 21 H Creatinine 1.52 H Estim Creat Clear Calc 36.33 Est GFR (MDRD) Af Amer 57 L Est GFR (MDRD) Non-Af 47 L BUN/Creatinine Ratio 13.8 Glucose 118 H Calcium 9.5 Magnesium 2.2 Urine Color Yellow Urine Clarity Clear Urine pH 6.5 Ur Specific [place] 1.010 Urine Protein 15 H Urine Glucose (UA) Normal Urine Ketones Negative Urine Occult Blood 25 H Urine Nitrite Negative Urine Bilirubin Negative Urine Urobilinogen Normal Ur Leukocyte Esterase 25 H Urine RBC 0 SEEN Urine WBC 0 SEEN Ur Squamous Epith Cells 0 SEEN Urine Bacteria 0 SEEN Urine Mucus 0 SEEN Radiography Diagnostic Testing: Clinical Impression(s) from Imaging Studies Chest X-Ray 03/27/24 01:41 IMPRESSION: No acute cardiopulmonary process identified. Postsurgical changes, as detailed above [facility] Chest x-ray as interpreted by the emergency medicine physician reveals no acute infiltrate pneumothorax or pleural effusion Discharge Plan Triage Chief Complaint: Confusion ED Provider: Du Ennis Dx/Rx/DC Orders Clinical Impression: Influenza A, Dehydration, Essential hypertension, Hyperlipidemia, MONALISA (obstructive sleep apnea) Instructions: ED Dehydration (Adult), ED Influenza (Adult) Prescriptions: No Action aspirin [Adult Low Dose Aspirin] 81 mg tablet,delayed release (DR/EC) 81 mg PO DAILY PRN (Reason: heart health) nitroglycerin [Nitrostat] 0.4 mg tablet, sublingual 0.4 mg SUBLINGUAL Q5-15M PRN (Reason: chest pain) Qty: 25 6RF Rx Instructions: until response; do not exceed 3 doses per episode Primary Care Provider: Chelsea Jensen Referrals: Chelsea Jensen MD [Primary Care Provider] - Activity Restrictions/Additional Instructions: Please continue with 1 g which is 2 extra strength Tylenol pills every 6 hours as needed to keep your fever under control. Also keep yourself well-hydrated to prevent worsening dehydration. You tested positive for influenza A which will last anywhere from 5 days to 14 days with the average being 7. He may have a fever the entire time you have the virus. Return to the ER should you have any further concerns Print Language: Faroese Disposition Disposition: Home, Self Care Discharge Date/Time: 03/27/24 04:35
[2024-03-27 04:23] VITALS: BP 133/62; PULSE 85; RESP 16; TEMP 37.1; O2SAT 92
== END 2024-03-27 04:35 | disposition home or self-care (01) ==
PROVIDERS: Emergency Provider Emergency Medicine; PCP Internal Medicine; Visit Provider Emergency Medicine
DX: J10.1 Influenza due to other identified influenza virus with other respiratory manifestations (principal); E86.0 Dehydration; I25.10 Atherosclerotic heart disease of native coronary artery without angina pectoris; E78.5 Hyperlipidemia, unspecified; G47.33 Obstructive sleep apnea (adult) (pediatric); E66.9 Obesity, unspecified; Z79.82 Long term (current) use of aspirin; Z87.891 Personal history of nicotine dependence; Z95.1 Presence of aortocoronary bypass graft
CPT/HCPCS: 71045; 80048; 81001; 83735; 85025; 87631; 96360; 96361; 99284; A4216

== ENCOUNTER → 2024-06-04 | Outpatient (CLI) | payer MEDICARE, OTHER, SELFPAY ==
--- NOTE | 2024-06-04 11:42 | RAD_ITS ---
PROCEDURE: HIP, UNI W/ PELVIS 2-3 VIEWS 06/04/2024 REASON FOR EXAM: PAIN TECHNIQUE: One (2) views of the right hip and AP pelvis. COMPARISON: No relevant prior. FINDINGS: Bones: No acute fractures. A right total hip arthroplasty is demonstrated. No periprosthetic fractures. Joints: No dislocations or subluxations. Soft tissues: Unremarkable. Other: Lower lumbar spondylosis and degenerative disc disease. RAD/HIP, UNI W/ Pelvis 2-3 Views IMPRESSION: Right total hip arthroplasty. No acute osseous abnormalities are demonstrated. Lower lumbar spondylosis and degenerative disc disease. Reading Location: [place] [id number]
--- NOTE | 2024-06-04 11:42 | RAD_ITS ---
PROCEDURE: LUMBAR SPINE 2 OR 3 VIEWS 06/04/2024 REASON FOR EXAM: PAIN TECHNIQUE: 2 view(s) of the lumbar spine COMPARISON: NO RELEVANT PRIOR FINDINGS: Vertebrae: Normal in height. Multilevel spondylosis. Discs: Multilevel degenerative disc disease. Alignment: Mild grade 1 anterolisthesis, L5 on S1. Moderate dextrocurvature. 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 Right total hip arthroplasty. RAD/Lumbar Spine 2 or 3 Views IMPRESSION: Multilevel spondylosis and degenerative disc disease. Mild grade 1 anterolisthesis, L5 on S1. Dextroscoliosis. Other nonacute findings detailed above. Reading Location: [place] [id number]
== END | disposition home or self-care (01) ==
LOC: MTRAD 11:42
PROVIDERS: PCP Internal Medicine; Referring Provider Physician Assistant; Visit Provider Physician Assistant
DX: M54.50 Low back pain, unspecified (principal); M25.551 Pain in right hip
CPT/HCPCS: 72100; 73502

== ENCOUNTER → 2024-12-02 | Outpatient (CLI) | payer MEDICARE, OTHER, SELFPAY ==
[2024-12-02 12:27] LABS: Hematocrit 46.1 % (40-54); Hemoglobin 15.3 g/dL (13.0-16.5); Immature Granulocytes Count 0.030 X10^3/uL (0.0-0.0); Mean Corp Hgb Conc 33.2 g/dL (32-36); Mean Corpuscular Volume 95.2 fL (80-94); Mean Platelet Vol. 9.5 fl (6.2-12.0); NRBC Flagged by Analyzer 0 % (0-5); Platelet Count 222 K/mm3 (150-450); RBC Distribution Width CV 14.1 % (11.6-14.6); RBC Distribution Width SD 49.1 fl (35.1-43.9); Red Blood Count 4.84 M/mm3 (4.6-6.2); White Blood Count 8.6 K/mm3 (4.4-11.0)
[2024-12-02 12:58] LABS: AST(SGOT) 33 U/L (<=37); Alanine Aminotransfer ALT/SGPT 34 U/L (<=46); Albumin, Serum 4.0 g/dL (3.4-4.8); Alkaline Phosphatase 72 U/L (40-129); Anion Gap 11 (5-15); BUN 18 mg/dL (4-19); BUN/Creat Ratio 12.6 RATIO (10-20); Calcium,Total 9.3 mg/dL (7.6-11.0); Carbon Dioxide 24.4 mmol/L (21.0-32.0); Chloride 106 mmol/L (98-108); Cholesterol 185 mg/dL (<=200); Globulin 3.4 g/dL (2.2-4.2); Glucose 100 mg/dL (70-99); Low Density Lipoprotein Calc. 115 mg/dL; PSA,Total - Annual Screen 2.47 ng/mL (0.02-4.00); Potassium 4.6 mmol/L (3.3-5.1); Triglycerides 180 mg/dL; Very Low Density Lipoprotein 36 mg/dL (5-40); cholesterol:hdl ratio screen 5.51
== END | disposition home or self-care (01) ==
LOC: BIMLAB 11:33
PROVIDERS: PCP Internal Medicine; Referring Provider Internal Medicine; Visit Provider Internal Medicine
DX: E78.5 Hyperlipidemia, unspecified (principal); G47.33 Obstructive sleep apnea (adult) (pediatric); Z12.5 Encounter for screening for malignant neoplasm of prostate
CPT/HCPCS: 36415; 80053; 80061; 84153; 85025; G0103